=== PATIENT | female | born 1945 | race Caucasian/White ===

== ENCOUNTER 2016-12-14 17:48 | Inpatient (IN) | payer MEDICARE, BC ==
[2016-12-14] MEDS ORDERED: SODIUM CHLORIDE 0.9% 1,000 ML IV STA (19:33)
--- NOTE | 2016-12-14 19:36 | ED ---
GI Bleed HPI - General Chief complaint: GI Bleed Stated complaint: RECTAL BLEEDING X 2 DAYS Time Seen by Provider: 12/14/16 19:00 Source: patient, RN notes reviewed Mode of arrival: ambulatory Limitations: no limitations - History of Present Illness Initial comments: This is a 71-year-old female history of no prior history of any abdominal problems who states she had the onset last several days of blood in her stool. She states she had some 2 days ago some yesterday and then today she had burning colored stool in the toilet bowl. She has a little bit of left lower quadrant pain no fevers chills no nausea no vomiting no sweats she had colonoscopy done in 2009 which apparently was normal. There is a remote family history of someone with polyps in the colon. She has no other history that she knows of no diverticulosis diverticulitis no history of irritable bowel. She denies any lightheadedness dizziness or other symptoms at this time. She denies any vaginal bleeding dysuria. MD complaint: gross hematochezia - Related Data Home Medications Medication Instructions Recorded Confirmed Benazepril [Lotensin] 10 mg PO DAILY 07/19/16 12/14/16 Pravastatin Sodium [Pravachol] 20 mg PO DAILY 07/19/16 12/14/16 Aspirin 81 mg PO DAILY 12/14/16 12/14/16 Multivitamins, Thera [Multivitamin 1 tab PO DAILY 12/14/16 12/14/16 (formulary)] Allergies Allergy/AdvReac Type Severity Reaction Status Date / Time acetaminophen [From Lortab] Allergy Unknown Verified 12/14/16 18:54 hydrocodone [From Lortab] Allergy Unknown Verified 12/14/16 18:54 Sulfa (Sulfonamide Allergy Unknown Verified 12/14/16 18:54 Antibiotics) Review of Systems ROS Statement: Those systems with pertinent positive or pertinent negative responses have been documented in the HPI. ROS Other: All systems not noted in ROS Statement are negative. Past Medical History Past Medical History: Hyperlipidemia, Hypertension, Osteoarthritis (OA) Additional Past Medical History / Comment(s): states recently treated for UTI, states heart murmur History of Any Multi-Drug Resistant Organisms: None Reported Past Surgical History: Section, Cholecystectomy, Joint Replacement, Orthopedic Surgery Additional Past Surgical History / Comment(s): 07/25/16 total R hip arthroplasty anterior approach. Other surgical hx: Right (?) knee sx for chipped bone as 8 yr old child, colonoscopy Past Anesthesia/Blood Transfusion Reactions: No Reported Reaction Past Psychological History: No Psychological Hx Reported Smoking Status: Former smoker Past Alcohol Use History: None Reported Additional Past Alcohol Use History / Comment(s): quit smoking 30 yrs ago, started as teenager, smoked less than 1/2 ppd Past Drug Use History: None Reported - Past Family History Son(s) Family Medical History: Cancer Additional Family Medical History / Comment(s): leukemia Mother Family Medical History: No Reported History Additional Family Medical History / Comment(s): Mother was healthy and lived to be 92yrs old. Father Family Medical History: No Reported History Additional Family Medical History / Comment(s): Father lived to be 85 yrs old. General Exam - General Exam Comments Initial Comments: This is a well-developed well-nourished awake alert oriented x3 female Limitations: no limitations General appearance: alert, in no apparent distress Head exam: Present: atraumatic, normocephalic, normal inspection Eye exam: Present: normal appearance, PERRL, EOMI. Absent: scleral icterus, conjunctival injection, periorbital swelling ENT exam: Present: normal exam, mucous membranes moist Neck exam: Present: normal inspection. Absent: tenderness, meningismus, lymphadenopathy Respiratory exam: Present: normal lung sounds bilaterally. Absent: respiratory distress, wheezes, rales, rhonchi, stridor Cardiovascular Exam: Present: regular rate, normal rhythm, normal heart sounds. Absent: systolic murmur, diastolic murmur, rubs, gallop, clicks GI/Abdominal exam: Present: soft, tenderness (Some left lower quadrant tenderness palpation no guarding no rebound no masses no bruits), normal bowel sounds. Absent: distended, guarding, rebound, rigid Rectal exam: Present: heme (+) stool, other (Ready color stool no masses some small residual hemorrhoids no bleeding no inflammation.) Extremities exam: Present: normal inspection, full ROM, normal capillary refill. Absent: tenderness, pedal edema, joint swelling, calf tenderness Back exam: Present: normal inspection Neurological exam: Present: alert, oriented X3, CN II-XII intact Psychiatric exam: Present: normal affect, normal mood Skin exam: Present: warm, dry, intact, normal color. Absent: rash Course Vital Signs 12/14/16 12/14/16 12/14/16 18:21 18:36 19:42 Temperature 98.5 F Pulse Rate 101 H 97 92 Respiratory 18 18 16 Rate Blood Pressure 172/100 135/65 125/51 O2 Sat by Pulse 96 98 96 Oximetry 12/14/16 12/14/16 21:24 23:40 Temperature Pulse Rate 84 90 Respiratory 18 18 Rate Blood Pressure 124/55 126/66 O2 Sat by Pulse 98 98 Oximetry Medical Decision Making - Medical Decision Making I did discuss findings with the patient family and with Dr. Borrero patient be admitted for further inpatient workup. - Lab Data Result diagrams: 12/14/16 18:50 12/14/16 18:50 Lab Results 12/14/16 12/14/16 12/14/16 Range/Units 18:50 18:50 18:50 WBC 11.5 H (3.8-10.6) k/uL RBC 4.51 (3.80-5.40) m/uL Hgb 13.2 (11.4-16.0) gm/dL Hct 41.1 (34.0-46.0) % MCV 91.0 (80.0-100.0) fL MCH 29.2 (25.0-35.0) pg MCHC 32.0 (31.0-37.0) g/dL RDW 13.7 (11.5-15.5) % Plt Count 260 (150-450) k/uL Neutrophils % 69 % Lymphocytes % 22 % Monocytes % 5 % Eosinophils % 1 % Basophils % 1 % Neutrophils # 7.9 H (1.3-7.7) k/uL Lymphocytes # 2.5 (1.0-4.8) k/uL Monocytes # 0.6 (0-1.0) k/uL Eosinophils # 0.1 (0-0.7) k/uL Basophils # 0.1 (0-0.2) k/uL PT (9.0-12.0) sec INR (<1.1) APTT (22.0-30.0) sec Sodium (137-145) mmol/L Potassium (3.5-5.1) mmol/L Chloride (98-107) mmol/L Carbon Dioxide (22-30) mmol/L Anion Gap mmol/L BUN (7-17) mg/dL Creatinine (0.52-1.04) mg/dL Est GFR (MDRD) Af Amer (>60 ml/min/1.73 sqM) Est GFR (MDRD) Non-Af (>60 ml/min/1.73 sqM) Glucose (74-99) mg/dL Calcium (8.4-10.2) mg/dL Magnesium (1.6-2.3) mg/dL Total Bilirubin (0.2-1.3) mg/dL AST (14-36) U/L ALT (9-52) U/L Alkaline Phosphatase (38-126) U/L Total Creatine Kinase 93 (30-135) U/L CK-MB (CK-2) 1.1 (0.0-2.4) ng/mL CK-MB (CK-2) Rel Index 1.2 Troponin I <0.012 (0.000-0.034) ng/mL Total Protein (6.3-8.2) g/dL Albumin (3.5-5.0) g/dL Lipase (23-300) U/L Stool Occult Blood (Negative) Blood Type A Positive Blood Type Recheck No Antibody Screen NEGATIVE Spec Expiration Date 12/17/2016 - 234912/14/16 12/14/16 12/14/16 Range/Units 18:50 18:50 18:50 WBC (3.8-10.6) k/uL RBC (3.80-5.40) m/uL Hgb (11.4-16.0) gm/dL Hct (34.0-46.0) % MCV (80.0-100.0) fL MCH (25.0-35.0) pg MCHC (31.0-37.0) g/dL RDW (11.5-15.5) % Plt Count (150-450) k/uL Neutrophils % % Lymphocytes % % Monocytes % % Eosinophils % % Basophils % % Neutrophils # (1.3-7.7) k/uL Lymphocytes # (1.0-4.8) k/uL Monocytes # (0-1.0) k/uL Eosinophils # (0-0.7) k/uL Basophils # (0-0.2) k/uL PT 10.1 (9.0-12.0) sec INR 1.0 (<1.1) APTT 21.6 L (22.0-30.0) sec Sodium 140 (137-145) mmol/L Potassium 4.6 (3.5-5.1) mmol/L Chloride 106 (98-107) mmol/L Carbon Dioxide 23 (22-30) mmol/L Anion Gap 11 mmol/L BUN 20 H (7-17) mg/dL Creatinine 0.80 (0.52-1.04) mg/dL Est GFR (MDRD) Af Amer >60 (>60 ml/min/1.73 sqM) Est GFR (MDRD) Non-Af >60 (>60 ml/min/1.73 sqM) Glucose 107 H (74-99) mg/dL Calcium 9.9 (8.4-10.2) mg/dL Magnesium 2.1 (1.6-2.3) mg/dL Total Bilirubin 0.4 (0.2-1.3) mg/dL AST 25 (14-36) U/L ALT 29 (9-52) U/L Alkaline Phosphatase 58 (38-126) U/L Total Creatine Kinase (30-135) U/L CK-MB (CK-2) (0.0-2.4) ng/mL CK-MB (CK-2) Rel Index Troponin I (0.000-0.034) ng/mL Total Protein 6.8 (6.3-8.2) g/dL Albumin 3.9 (3.5-5.0) g/dL Lipase 158 (23-300) U/L Stool Occult Blood Positive H (Negative) Blood Type Blood Type Recheck Antibody Screen Spec Expiration Date - EKG Data -: EKG Interpreted by Al EKG shows normal: sinus rhythm (Sinus rhythm rate of 93. Arrival 136 QRS duration 66 QT/QTC of 334/4:15 minimal voltage criteria for LVH no acute ST-T wave changes.) - Radiology Data Radiology results: report reviewed (I did review the imaging and reports no acute findings.), image reviewed Disposition Clinical Impression: Hematochezia, Lower GI bleed Disposition: [facility] Condition: Stable
[2016-12-14 19:49] LABS: Basophils # (A) 0.1 k/uL (0-0.2); Basophils % (A) 1 %; CH 29.8; CHCM 32.8; Eosinophils # (A) 0.1 k/uL (0-0.7); Eosinophils % (A) 1 %; HCT 41.1 % (34.0-46.0); HDW 2.32; HGB 13.2 gm/dL (11.4-16.0); Luc % (Auto) 2; Lymphocytes # (A) 2.5 k/uL (1.0-4.8); Lymphocytes % (A) 22 %; MCH 29.2 pg (25.0-35.0); Mean Platelet Volume 8.6; Monocytes # (A) 0.6 k/uL (0-1.0); Monocytes % (A) 5 %; Neutrophils # (A) 7.9 k/uL (1.3-7.7); Neutrophils % (A) 69 %; RBC 4.51 m/uL (3.80-5.40); RDW 13.7 % (11.5-15.5); WBC 11.5 k/uL (3.8-10.6); WBC (Perox) 12.15
[2016-12-14 20:04] LABS: ALT 29 U/L (9-52); AST 25 U/L (14-36); Alkaline Phosphatase 58 U/L (38-126); Anion Gap 11 mmol/L; Blood Urea Nitrogen 20 mg/dL (7-17); Calcium 9.9 mg/dL (8.4-10.2); Carbon Dioxide 23 mmol/L (22-30); Chloride 106 mmol/L (98-107); Glucose 107 mg/dL (74-99); Magnesium 2.1 mg/dL (1.6-2.3); Non-African American GFR(MDRD) >60 (>60 ml/min/1.73 sqM); Potassium 4.6 mmol/L (3.5-5.1); Sodium 140 mmol/L (137-145); Total Bilirubin 0.4 mg/dL (0.2-1.3); Total Protein 6.8 g/dL (6.3-8.2)
[2016-12-14 20:11] LABS: Creatine Kinase 93 U/L (30-135); Prothrombin Time 10.1 sec (9.0-12.0)
[2016-12-14 20:23] LABS: Partial Thromboplastin Time 21.6 sec (22.0-30.0)
[2016-12-14 20:24] LABS: Creatine Kinase MB 1.1 ng/mL (0.0-2.4); Troponin I <0.012 ng/mL (0.000-0.034)
--- NOTE | 2016-12-14 21:06 | XR ---
EXAMINATION TYPE: XR abdomen 1V DATE OF EXAM: 12/14/2016 8:49 PM COMPARISON: NONE HISTORY: Cough TECHNIQUE: 2 views FINDINGS: There is no sign of intestinal obstruction or pneumoperitoneum. Fecal pattern is normal. Th ere are clips from cholecystectomy. There is right hip prosthesis. There are no calcifications over t he kidneys. IMPRESSION: Nonacute abdomen.
--- NOTE | 2016-12-14 21:08 | XR ---
EXAMINATION TYPE: XR chest 2V DATE OF EXAM: 12/14/2016 8:49 PM COMPARISON: 07/26/2016 HISTORY: Cough TECHNIQUE: Frontal and lateral views of the chest are obtained. FINDINGS: There is no heart failure nor confluent pneumonic infiltrate. There are no hilar masses. C ostophrenic angles are clear. There are chest leads. Bony thorax is intact. IMPRESSION: No active cardiopulmonary disease. No change.
[2016-12-14] MEDS ORDERED: ONDANSETRON 4 MG/2 ML VIAL IVP PRN (23:45)
[2016-12-14] MEDS ORDERED: NALOXONE 0.4 MG/ML 1 ML VIAL IV PRN (23:45)
[2016-12-14] MEDS ORDERED: RX INFO: IV CONTRAST WAS GIVEN 1 EACH MISC MISCELLANE PRN (23:49)
[2016-12-14] MEDS ORDERED: IOHEXOL 350 MG/ML 25 ML BOTTLE (ORAL USE) PO PRN (23:49)
--- NOTE | 2016-12-15 02:36 | CT ---
EXAM: CT Abdomen and Pelvis With Intravenous Contrast. CLINICAL HISTORY: Pain, rectal bleeding. History of cholecystectomy and section 3. TECHNIQUE: Axial computed tomography images of the abdomen and pelvis with intravenous contrast. CTDI is 19.60, 22.40 mGy and DLP is 1469.70 mGy-cm This CT exam was performed using one or more of the following dose reduction techniques: automated exposure control, adjustment of the mA and/or kV according to patient size, and/or use of iterative reconstruction technique. COMPARISON: No relevant prior studies available. FINDINGS: Artifacts: Right hip prosthesis. Lower thorax: No acute findings. ABDOMEN: Liver: The liver is upper limits of normal in size. No focal hepatic lesions. Gallbladder and bile ducts: Gallbladder is absent. Mild nonspecific biliary dilatation may be postsurgical. The common bile duct measures up to 14 mm. Pancreas: Unremarkable. Spleen: Unremarkable. Adrenals: Unremarkable. Kidneys and ureters: Unremarkable. No solid mass. No hydronephrosis. Stomach and bowel: Unremarkable. Bowel is nondilated. Appendix: No findings to suggest acute appendicitis. PELVIS: Bladder: Mild thickening of the underdistended urinary bladder. Reproductive: Unremarkable as visualized. ABDOMEN and PELVIS: Intraperitoneal space: Unremarkable. No free air. No significant fluid collection. Bones/joints: Status post right hip arthroplasty. No acute osseous abnormality. Degenerative changes of the spine. Soft tissues: Small fat-containing periumbilical hernia. Vasculature: Unremarkable. No abdominal aortic aneurysm. Lymph nodes: Unremarkable. No enlarged lymph nodes. IMPRESSION: No acute findings.
[2016-12-15] MEDS: 0.9% NACL WITH KCL 20 MEQ/L 1,000 ML IV SCH ×3 (03:16→17:35)
[2016-12-15 06:12] LABS: CH 29.8; CHCM 33.6; HDW 2.44; HGB 11.6 gm/dL (11.4-16.0); MCH 30.3 pg (25.0-35.0); MCV 89.1 fL (80.0-100.0); RBC 3.81 m/uL (3.80-5.40); RDW 13.3 % (11.5-15.5); WBC 11.2 k/uL (3.8-10.6)
[2016-12-15] MEDS: PANTOPRAZOLE 40 MG/10 ML VIAL IV SCH ×2 (09:08→21:04)
[2016-12-15] MEDS: LISINOPRIL 10 MG TAB PO SCH (11:28)
[2016-12-15] MEDS: PRAVASTATIN SODIUM 20 MG TAB PO SCH (11:28)
[2016-12-15] MEDS ORDERED: HYDROmorphone 1 MG/ML 1 ML SYRINGE IV PRN (12:30)
--- NOTE | 2016-12-15 13:02 | HP ---
DATE OF ADMISSION: 12/14/2016 PRESENTING COMPLAINT: Lower GI bleed. HISTORY OF PRESENTING COMPLAINT: This is a very pleasant 71-year-old patient of Dr. King. Chronic stable medical conditions include hypertension, hyperlipidemia, obesity, osteoarthritis. Patient 3 days ago started having blood in the stool. Also started noticing clots. No abdominal pain, nausea, vomiting but did feel dizzy, lightheaded. No chest pain. Admitted for the same. Patient does take a baby aspirin. No prior history of the same. REVIEW OF SYSTEMS: CONSTITUTIONAL: Tired. HEENT: None. RESPIRATORY: None. CARDIOVASCULAR: None. GASTROINTESTINAL: As above. GENITOURINARY: None. MUSCULOSKELETAL: Pain in the joints. DERMATOLOGIC: None. HEMATOLOGIC: None. LYMPHATIC: None. PSYCHIATRY: None. NEUROLOGICAL: None. Past medical history of hypertension, hyperlipidemia, obesity, osteoarthritis. PAST SURGICAL HISTORY: , cholecystectomy, hernia repair, joint repair, right total hip arthroplasty. SOCIAL HISTORY: Patient stopped smoking 30 years ago, only smoked as a teenager, very briefly. No alcohol. Lives by herself. Family history of leukemia. HOME MEDICATIONS: 1. Multivitamin 1 tablet p.o. daily. 2. Benazepril 10 mg p.o. daily. 3. Aspirin 81 mg daily. 4. Pravachol 20 mg p.o. daily. On examination, temperature 98.5, pulse 101, respirations 18, blood pressure 172/100, pulse ox 96% on room air. Repeat blood pressure 135/65. GENERAL APPEARANCE: Well built, BMI of 39.3. Sitting up, not in distress. EYES: Pupils equal. Conjunctivae normal. HEENT: Oral cavity normal. NECK: JVD not raised. Mass not palpable. Respiratory effort normal. Lungs are clear. CARDIOVASCULAR: First and second sounds normal. No edema. ABDOMEN: Soft, nontender. Liver and spleen not palpable. LYMPHATIC: No lymph node palpable in neck or axillae. PSYCHIATRY: Alert and oriented x3. Mood and affect normal. NEUROLOGICAL: Pupils equal. Cranial nerves grossly intact. Power and sensation grossly intact. INVESTIGATIONS: White count 11.5, hemoglobin 13.2. Potassium 4.6, BUN 20, creatinine 0.80. C. diff negative. CT scan of the abdomen and pelvis unremarkable. ASSESSMENT: 1. Acute painless lower gastrointestinal bleed in patient putting out blood clots, strongly suspect this to be a diverticular bleed. Of course patient is on aspirin, need to consider upper gastrointestinal bleed, too. Patient has no epigastric tenderness. 2. Essential hypertension. 3. Hyperlipidemia. 4. Obesity; body mass index of 39.3. 5. Primary osteoarthritis in multiple joints. PLAN: Consultation was made from the ER. H&H will be followed. Patient's aspirin has been held. Patient was put on IV TPN, IV fluids. Care was discussed with the patient and a niece and a [id number] at the bedside. Questions were answered.
--- NOTE | 2016-12-15 15:50 | P.GSCN ---
<Micheline Henao - Last Filed: 12/15/16 15:38> History of Present Illness Consult date: 12/15/16 Reason for Consult: New onset melena History of present illness: 71-year-old female being seen at the request of the attending for a surgical eval. Patient was admitted to the emergency room with acute onset over the last several days noting to have blood in her stool. Patient states there was bright red blood in the toilet bowl and the stools or maroon in color Stated that over the last several days she noted that she did have burning when she had a bowel movement with blood in the toilet bowl. Patient stated she had left lower quadrant pain. Patient denied any fever chills. Patient gives no history of being told that she's been treated in the past for diverticulosis.. Patient stated approximately 7 years ago she had a colonoscopy done. Patient stated there were no acute findings. Patient is a history of remote family member having polyps in the colon. Patient states that she has had no significant past surgical history except repair and 3 C-sections. In the emergency room the patient did undergo CAT scan of the abdomen and pelvis with IV contrast which showed no findings to suggest acute appendicitis is an unremarkable study hemoglobin on admission was 13.2 a repeat hemoglobin was 11.6. Patient states since being admitted has had 3 loose stools maroon in color currently is denying abdominal pain no nausea no vomiting Review of Systems Essentially unremarkable except as mentioned in the present illness Past Medical History Past Medical History: Hyperlipidemia, Hypertension, Osteoarthritis (OA) Additional Past Medical History / Comment(s): states recently treated for UTI, states heart murmur History of Any Multi-Drug Resistant Organisms: None Reported Past Surgical History: Section, Cholecystectomy, Hernia Repair, Joint Replacement, Orthopedic Surgery Additional Past Surgical History / Comment(s): 07/25/16 total R hip arthroplasty anterior approach. Other surgical hx: Right (?) knee sx for chipped bone as 8 yr old child, colonoscopy Past Anesthesia/Blood Transfusion Reactions: No Reported Reaction Past Psychological History: No Psychological Hx Reported Smoking Status: Former smoker Past Alcohol Use History: None Reported Additional Past Alcohol Use History / Comment(s): quit smoking 30 yrs ago, started as teenager, smoked less than 1/2 ppd Past Drug Use History: None Reported - Past Family History Son(s) Family Medical History: Cancer Additional Family Medical History / Comment(s): leukemia Mother Family Medical History: No Reported History Additional Family Medical History / Comment(s): Mother was healthy and lived to be 92yrs old. Father Family Medical History: No Reported History Additional Family Medical History / Comment(s): Father lived to be 85 yrs old. Medications and Allergies Home Medications Medication Instructions Recorded Confirmed Type Benazepril [Lotensin] 10 mg PO DAILY 07/19/16 12/14/16 History Pravastatin Sodium [Pravachol] 20 mg PO DAILY 07/19/16 12/14/16 History Aspirin 81 mg PO DAILY 12/14/16 12/14/16 History Multivitamins, Thera [Multivitamin 1 tab PO DAILY 12/14/16 12/14/16 History (formulary)] Allergies Allergy/AdvReac Type Severity Reaction Status Date / Time acetaminophen [From Lortab] Allergy Unknown Verified 12/14/16 18:54 hydrocodone [From Lortab] Allergy Unknown Verified 12/14/16 18:54 Sulfa (Sulfonamide Allergy Unknown Verified 12/14/16 18:54 Antibiotics) Surgical - Exam Vital Signs Temp Pulse Resp BP Pulse Ox 98.5 F 101 H 18 172/100 96 12/14/16 18:21 12/14/16 18:21 12/14/16 18:21 12/14/16 18:21 12/14/16 18:21 GENERAL APPEARANCE: 71-year-old female patient is alert, oriented, in no acute distress. Sitting up in a chair VITAL SIGNS: Reviewed HEENT: Head is normocephalic and atraumatic. Pupils are equal and reactive. The nares are patent. Oropharynx is clear without lesions. NECK: Supple without lymphadenopathy. Traches midline. HEART: S1, S2. Regular rate and rhythm. LUNGS: No crackles or wheezes are heard. ABDOMEN: Soft, slight tenderness, nondistended with good bowel sounds. No peritoneal signs. No palpable organomegaly or masses. Reportedly has had 3 maroon stools painless no reports of nausea vomiting reports having tenderness to the left lower quadrant EXTREMITIES: Normal skin color and turgor. No cyanosis, rash, ulceration, clubbing or edema. Radial pedal pulses are 2/4 bilaterally. NEUROLOGICAL: No focal deficits. Strength and sensation are grossly intact. Results - Labs 12/15/16 05:22 12/14/16 18:50 Abnormal Lab Results - Last 24 Hours (Table) 12/15/16 Range/Units 05:22 WBC 11.2 H (3.8-10.6) k/uL Assessment and Plan Plan: Impression Present on admission rectal bleeding suspect due to a GI bleed positive stool for occult blood Colonoscopy in 2009 with apparently no acute findings Present on admission hematochezia likely due to lower GI bleed Computed tomography scan IV contrast abdomen and pelvis no acute findings Obesity BMI 39 Plan No surgical intervention indicated at this time will defer to GI service patient may benefit from a colonoscopy Repeat labs in the morning DVT and GI prophylaxis IV fluid for hydration Will reevaluate in the morning with further recommendations as clinical course indicates Thank you for allowing us to participate in the surgical care of your patient will follow closely with further recommendations The above dictated assessment and findings were discussed with dr fernandez Impression and the plan of care have been dictated as directed. Micheline Henao nurse practitioner acting as a scribe for dr fernandez <Katty Adkins - Last Filed: 12/16/16 10:39> Surgical - Exam Vital Signs Temp Pulse Resp BP Pulse Ox 98.5 F 101 H 18 172/100 96 12/14/16 18:21 12/14/16 18:21 12/14/16 18:21 12/14/16 18:21 12/14/16 18:21 Results - Labs 12/16/16 08:42 12/14/16 18:50 Abnormal Lab Results - Last 24 Hours (Table) 12/15/16 12/16/16 Range/Units 17:53 08:42 RBC 3.55 L 3.73 L (3.80-5.40) m/uL Hgb 10.5 L (11.4-16.0) gm/dL Hct 32.4 L 33.6 L (34.0-46.0) % Assessment and Plan Plan: Patient examined. GI bleeding. Consult GI for therapeutic colonoscopy. No indication for surgical intervention at this time. Check CBC in pm and tomorrow am.Thank you for the consult.
[2016-12-15 18:36] LABS: Basophils # (A) 0.1 k/uL (0-0.2); Basophils % (A) 1 %; CH 29.6; CHCM 32.6; Eosinophils # (A) 0.1 k/uL (0-0.7); Eosinophils % (A) 2 %; HCT 32.4 % (34.0-46.0); HDW 2.28; HGB 10.5 gm/dL (11.4-16.0); Luc % (Auto) 3; Lymphocytes # (A) 2.6 k/uL (1.0-4.8); Lymphocytes % (A) 32 %; MCH 29.6 pg (25.0-35.0); MCHC 32.4 g/dL (31.0-37.0); MCV 91.2 fL (80.0-100.0); Mean Platelet Volume 8.6; Monocytes # (A) 0.5 k/uL (0-1.0); Monocytes % (A) 6 %; Neutrophils # (A) 4.5 k/uL (1.3-7.7); Neutrophils % (A) 56 %; RBC 3.55 m/uL (3.80-5.40); RDW 13.5 % (11.5-15.5); WBC 8.1 k/uL (3.8-10.6); WBC (Perox) 8.77
[2016-12-16] MEDS: 0.9% NACL WITH KCL 20 MEQ/L 1,000 ML IV SCH ×3 (01:04→17:06)
--- NOTE | 2016-12-16 08:59 | P.CONS ---
History of Present Illness - Reason for Consult Consult date: 12/16/16 Rectal bleeding Requesting physician: Sharad Borrero - History of Present Illness 71-year-old female patient Dr. King with a past medical history hyperlipidemia hypertension osteoarthritis. Patient presents with painless rectal bleeding that started Monday but accelerated Monday afternoon. She was resting multiple bowel movements burgundy colored with clots. Last night the bleeding seems to have tapered off and subsided. She had a bowel movement this morning that was more brown in nature. No history of GI bleeding. Denies hematemesis or melena. No history of peptic ulcer disease, weight loss, or fever. Last colonoscopy record was performed in 2009 at [facility] by Dr. Montgomery; findings reported as normal with no evidence of diverticular disease or polypectomy. Admission hemoglobin 13.2 currently 10.5. White count 8.1. Platelet 200. INR 1.0. BUN 20 creatinine 0.8. C. diff negative. TT abdomen and pelvis no acute findings. Review of Systems Constitutional: Denies fever, chills, sweats, weight gain, or loss. HEENT: Negative for migraines, blurred vision or loss, earaches, drainage, tinnitus, oral mucosal lesions, dysphagia, or odynophagia. CARDIAC: Hypertension. Hyperlipidemia. Negative for chest pain, arrhythmias, or palpitation. RESPIRATORY: Negative for shortness of breath, hemoptysis, cough, or sputum production. GI: See HPI for pertinent findings. : Negative for hematuria, urgency, frequency, polyuria, or dysuria. GYNc: Negative vaginal discharge. MUSCULOSKELETAL: Osteoarthritis. Negative for muscle aches, swelling, arthritis , and arthralgias. NEUROLOGIC: Negative for stroke or TIA. ENDOCRINE: Negative for thyroid problems. SKIN: Negative for rash or itching. PSYCHIATRIC: Negative history for depression and anxiety All systems: negative (See HPI) Past Medical History Past Medical History: Hyperlipidemia, Hypertension, Osteoarthritis (OA) Additional Past Medical History / Comment(s): states recently treated for UTI, states heart murmur History of Any Multi-Drug Resistant Organisms: None Reported Past Surgical History: Section, Cholecystectomy, Hernia Repair, Joint Replacement, Orthopedic Surgery Additional Past Surgical History / Comment(s): 07/25/16 total R hip arthroplasty anterior approach. Other surgical hx: Right (?) knee sx for chipped bone as 8 yr old child, colonoscopy Past Anesthesia/Blood Transfusion Reactions: No Reported Reaction Past Psychological History: No Psychological Hx Reported Smoking Status: Former smoker Past Alcohol Use History: None Reported Additional Past Alcohol Use History / Comment(s): quit smoking 30 yrs ago, started as teenager, smoked less than 1/2 ppd Past Drug Use History: None Reported - Past Family History Son(s) Family Medical History: Cancer Additional Family Medical History / Comment(s): leukemia Mother Family Medical History: No Reported History Additional Family Medical History / Comment(s): Mother was healthy and lived to be 92yrs old. Father Family Medical History: No Reported History Additional Family Medical History / Comment(s): Father lived to be 85 yrs old. Medications and Allergies Home Medications Medication Instructions Recorded Confirmed Type Benazepril [Lotensin] 10 mg PO DAILY 07/19/16 12/14/16 History Pravastatin Sodium [Pravachol] 20 mg PO DAILY 07/19/16 12/14/16 History Aspirin 81 mg PO DAILY 12/14/16 12/14/16 History Multivitamins, Thera [Multivitamin 1 tab PO DAILY 12/14/16 12/14/16 History (formulary)] Allergies Allergy/AdvReac Type Severity Reaction Status Date / Time acetaminophen [From Lortab] Allergy Unknown Verified 12/14/16 18:54 hydrocodone [From Lortab] Allergy Unknown Verified 12/14/16 18:54 Sulfa (Sulfonamide Allergy Unknown Verified 12/14/16 18:54 Antibiotics) Physical Exam Vitals: Vital Signs Temp Pulse Resp BP Pulse Ox 12/16/16 07:00 97.5 F L 83 19 123/75 95 12/15/16 22:33 97.6 F 74 14 119/55 96 12/15/16 22:24 97.6 F 74 14 119/58 96 12/15/16 15:00 98.3 F 70 19 107/59 95 Intake and Output 12/15/16 12/16/16 12/16/16 22:59 06:59 14:59 Output Total 1 Balance -1 Output: Stool 1 Other: Voiding Method Toilet Toilet # Voids 3 0 # Bowel Movements 1 General appearance: The patient is alert, oriented, in no acute distress. HET: Head is normocephalic and atraumatic. Pupils are equal and reactive. Oropharynx is clear without lesions. Neck: Supple without lymphadenopathy. Trachea midline. Heart: S1 S2. Regular rate and rhythm. Lungs: No crackles or wheezes are heard. Abdomen: Soft, nontender, nondistended with bowel sounds. No peritoneal signs. No palpable organomegaly or masses. Extremities: Normal skin color and turgor. No cyanosis, rash, ulceration, clubbing, or edema. Radial and pedal pulses are 2/4 bilaterally. Neurological: No focal deficits. Strength and sensation are grossly intact. Results CBC & Chem 7: 12/15/16 17:53 12/14/16 18:50 Labs: Abnormal Lab Results - Last 24 Hours (Table) 12/15/16 Range/Units 17:53 RBC 3.55 L (3.80-5.40) m/uL Hgb 10.5 L (11.4-16.0) gm/dL Hct 32.4 L (34.0-46.0) % CT scan - abdomen: report reviewed (Reviewed by Dr. Figueroa) Assessment and Plan (1) Rectal bleeding Narrative/Plan: Suspect segmental ischemic colitis however other pathology such as self- limiting infectious, inflammatory colitis, malignancy, angiectasia, cannot be entirely excluded. Diverticular bleeding possible but felt to be less likely considering her last exam several years ago reported no evidence of diverticular disease. Status: Acute (2) Acute blood loss anemia Status: Acute Plan: 1. Presently patient is resting comfortably requesting diet advancement and and is inquiring about discharge. She was advised to undergo repeat colonoscopy this can be performed as early as tomorrow morning or be scheduled as an outpatient within the next week. She would like to discuss her options with family and give her response later today. For now continue clear liquid diet until she makes decision; inpatient versus outpatient colonoscopy will be performed. Continue to follow CBC closely. We'll follow with you. Thank you for this kind referral and the opportunity to participate in the care of your patient. This consultation was discussed with Dr. Figueroa. The impression and plan of care have been directed as dictated.
[2016-12-16 09:06] LABS: Basophils % (A) 1 %; CH 29.6; Eosinophils # (A) 0.2 k/uL (0-0.7); Eosinophils % (A) 3 %; HCT 33.6 % (34.0-46.0); HDW 2.43; HGB 11.4 gm/dL (11.4-16.0); Luc # (Auto) 0.15; Luc % (Auto) 2; Lymphocytes # (A) 2.3 k/uL (1.0-4.8); Lymphocytes % (A) 33 %; MCH 30.7 pg (25.0-35.0); MCV 90.1 fL (80.0-100.0); Mean Platelet Volume 8.2; Monocytes # (A) 0.4 k/uL (0-1.0); Monocytes % (A) 6 %; Neutrophils # (A) 3.8 k/uL (1.3-7.7); Neutrophils % (A) 55 %; RBC 3.73 m/uL (3.80-5.40); RDW 13.5 % (11.5-15.5); WBC 6.9 k/uL (3.8-10.6); WBC (Perox) 7.44
[2016-12-16] MEDS: PANTOPRAZOLE 40 MG/10 ML VIAL IV SCH ×2 (09:36→20:24)
[2016-12-16] MEDS: PRAVASTATIN SODIUM 20 MG TAB PO SCH (09:36)
[2016-12-16] MEDS: LISINOPRIL 10 MG TAB PO SCH (09:36)
--- NOTE | 2016-12-16 12:02 | P.PN ---
Subjective 71-year-old female being seen by surgical Service Currently patient is sitting up in a chair. Patient's been seen by GI service. They are setting the patient up for colonoscopy which will be scheduled tomorrow after the bowel prep has been initiated. Patient continues to report that she has had multiple bowel movements that are burgundy in color and there have been clots noted. She stated that they're less frequent but they continue to persist. Patient stated one bowel movement this morning was more brown in nature. Hemoglobin stable at 13.2 C. diff is negative Objective - Vital Signs Vital signs: Vital Signs Temp 97.5 F L 12/16/16 07:00 Pulse 83 12/16/16 07:00 Resp 19 12/16/16 07:00 BP 123/75 12/16/16 07:00 Pulse Ox 95 12/16/16 07:00 Intake & Output 12/15/16 12/16/16 12/16/16 18:59 06:59 18:59 Output Total 1 Balance -1 Output: Stool 1 Other: Voiding Method Toilet Toilet Toilet # Voids 3 0 # Bowel Movements 1 1 - Exam Physical exam 70-year-old female sitting up in a chair appears in no acute distress Lungs essentially clear adequate air movement on room air Heart S1-S2 audible and regular denying chest pain Abdomen soft nontender states had one brownish color stool this morning but had several bowel movements yesterday Burgamy in color with clots Extremities no edema - Labs CBC & Chem 7: 12/16/16 08:42 12/14/16 18:50 Labs: Abnormal Lab Results - Last 24 Hours (Table) 12/15/16 12/16/16 Range/Units 17:53 08:42 RBC 3.55 L 3.73 L (3.80-5.40) m/uL Hgb 10.5 L (11.4-16.0) gm/dL Hct 32.4 L 33.6 L (34.0-46.0) % Assessment and Plan Plan: Impression Present on admission rectal bleeding suspect due to a GI bleed positive stool for occult blood Colonoscopy in 2009 with apparently no acute findings Present on admission hematochezia likely due to lower GI bleed Computed tomography scan IV contrast abdomen and pelvis no acute findings Obesity BMI 39 Present on admission acute blood loss anemia suspect GI bleed Rectal bleeding suspect segmental ischemic colitis diverticular bleeding possible but felt to be less likely considering last exam colonoscopy showed no evidence of diverticular disease colonoscopy done in 2010 Plan No surgical intervention indicated at this time will defer to GI service Repeat labs in the morning DVT and GI prophylaxis IV fluid for hydration GI service scheduling patient for colonoscopy tomorrow We'll sign off with no further surgical recommendations at this time reconsult as needed The above dictated assessment and findings were discussed with dr fernandez Impression and the plan of care have been dictated as directed. Micheline Henao nurse practitioner acting as a scribe for dr fernandez
[2016-12-16] MEDS ORDERED: PEG 3350-NA SULF,BICARB,CL/KCL 4,000 ML BOTTLE PO ONE (16:00)
[2016-12-17 00:25] VITALS: PULSE 71; RESP 16
[2016-12-17] MEDS: 0.9% NACL WITH KCL 20 MEQ/L 1,000 ML IV SCH ×2 (02:14→09:23)
[2016-12-17 07:49] VITALS: BP 125/58; TEMP 96
[2016-12-17] MEDS ORDERED: IV FLUID CONTINUATION 1,000 ML IV ONE (08:05)
[2016-12-17] MEDS ORDERED: PROPOFOL 10 MG/ML 20 ML VIAL IV ONE (08:19)
[2016-12-17] MEDS ORDERED: SODIUM CHLORIDE 0.9% 1,000 ML IV ONE (08:37)
--- NOTE | 2016-12-17 08:58 | P.PCN ---
Date of Procedure: 12/17/16 Procedure(s) Performed: Procedure: Total colonoscopy. Preoperative diagnosis: Rectal bleeding. Postoperative diagnosis: 1. Mild sigmoid diverticulosis with no evidence of acute diverticulitis, strictures or bleeding. 2. Low-grade internal hemorrhoids without bleeding at the time of this exam. 3. No mucosal abnormalities, angiodysplasias, neoplasia or other potential sources of bleeding seen. Preparation: GoLYTELY prep. Sedation: Was provided by anesthesia. Brief clinical history: The patient is a 71-year-old female who presented with painless rectal bleeding that started two days prior to admission but accelerated the afternoon of the day of admission 12/14/2016. She was having multiple bowel movements, burgundy in color with clots. The bleeding seems to have tapered off and subsided after admission. She had a bowel movement yesterday which was more brown in nature. No history of GI bleeding in the past. Denies hematemesis or melena. No history of peptic ulcer disease, weight loss, or fever. Last colonoscopy record was performed in 2009 at [facility] by Dr. Montgomery; findings reported as normal with no evidence of diverticular disease or polypectomy. Admission hemoglobin 13.2, lowest was 10.5, yesterday 11.4. White count 8.1. Platelet 200. INR 1.0. BUN 20 creatinine 0.8. C. diff negative. The details are summarized in the history and physical and dictated consultations and progress Notes. This evaluation is to assess for a source of bleeding. Procedure: With the patient on her left lateral decubitus position and after informed consent and adequate sedation, the perianal area was inspected and it did not show any fissures or fistulas. There were no masses felt on digital rectal examination. The Olympus CFQ 160L video colonoscope was then inserted in the rectum in the usual fashion and advanced to the cecum. The mucosa appeared healthy. No polyps or tumors were seen or any angiodysplasia or other potential sources of bleeding. There was no active bleeding. Or fecal water was yellowish in color. There were a few diverticular orifices seen scattered in the distal sigmoid with no evidence of acute diverticulitis, strictures or bleeding. I retroflexed endoscope in the rectum before the endoscope was withdrawn. Low-grade internal hemorrhoids were noted but there was no bleeding. The patient tolerated the procedure well. Plan: The patient was reassured and I discussed these findings with her daughter as well. It is likely that her bleeding was secondary to her diverticular disease, less likely to hemorrhoids. Since it has subsided spontaneously and her hemoglobin is now stable, I did not recommend any additional workup at this time. Will advance her diet. Further plans based on her course.
[2016-12-17] MEDS: LISINOPRIL 10 MG TAB PO SCH (09:23)
[2016-12-17] MEDS: PRAVASTATIN SODIUM 20 MG TAB PO SCH (09:23)
[2016-12-17] MEDS: PANTOPRAZOLE 40 MG/10 ML VIAL IV SCH (09:23)
--- NOTE | 2016-12-17 10:52 | PN ---
DATE OF SERVICE: 12/16/2016 PRESENTING COMPLAINT: Lower GI bleed. INTERVAL HISTORY: This patient presented with lower gastrointestinal bleed including blood clots. No episodes earlier today when I saw the patient. The patient is scheduled for colonoscopy tomorrow. No abdominal pain. No nausea or vomiting. REVIEW OF SYSTEMS: Done for constitutional, cardiovascular, GI, pulmonary; relevant findings as above. Current medications are reviewed and include IV Protonix. On examination, temperature 98.2, pulse 82, respirations 17, blood pressure 132/62, pulse ox 97% on room air. GENERAL APPEARANCE: Sitting up, comfortable. EYES: Pupils equal. Conjunctivae normal. NECK: JVD not raised. No mass palpable. RESPIRATORY: Effort normal. LUNGS: Clear CARDIOVASCULAR: First and second sounds normal. No edema. ABDOMEN: Soft, nontender. Liver and spleen not palpable. PSYCHIATRY: Alert and oriented x3. Mood and affect normal. INVESTIGATIONS: White count 6.9, hemoglobin 11.4. ASSESSMENT: 1. Acute lower gastrointestinal bleed in a patient putting out blood clots, strongly suspect this to be diverticular bleed. Patient due for endoscopy tomorrow. 2. Essential hypertension. 3. Hyperlipidemia. 4. Obesity, body mass index of 39.3. 5. Primary osteoarthritis of multiple joints. PLAN: Hemodynamically stable. Awaiting endoscopy tomorrow. Care was discussed with the patient.
[2016-12-18] MEDS ORDERED: PANTOPRAZOLE 40 MG TABLET PO SCH (09:00)
--- NOTE | 2016-12-18 13:52 | DS ---
DATE OF ADMISSION: 12/14/2016 DATE OF DISCHARGE: 12/17/2016 FINAL DIAGNOSIS(ES): 1. Acute lower gastrointestinal bleed, likely from diverticulosis. 2. Essential hypertension. 3. Hyperlipidemia. 4. Obesity; body mass index 39.3. 5. Primary osteoarthritis of multiple joints, bilateral. CONSULTATION: Dr. Figueroa from GI and Dr. Adkins from general surgery. HOSPITAL COURSE: This patient presented with lower gastrointestinal bleed, painless. Colonoscopy did show some internal hemorrhoids and diverticulosis. ( ) felt to be the cause. Patient hemoglobin stable at 11.5 at discharge. On exam, ABDOMEN: Soft, nontender. LUNGS: Clear to auscultation. Care was discussed with the patient. DISCHARGE MEDICATIONS: 1. Lotensin 10 mg p.o. daily. 2. Pravachol 20 mg p.o. daily. 3. Aspirin 81 mg one daily to be started in one week. 4. Multivitamin 1 tablet p.o. daily. Follow up with Dr. King in one week.
== END 2016-12-17 12:58 | disposition home or self-care (01) | DRG 378 ==
LOC: EC 17:48 → 4MS4W 23:45
PROVIDERS: ADMIT Hospitalist; ATTEND Hospitalist
PROC: 0DJD8ZZ Inspection of Lower Intestinal Tract, Via Natural or Artificial Opening Endoscopic (ICD-10-PCS; principal; 2016-12-17 08:00)
DX: K57.31 Diverticulosis of large intestine without perforation or abscess with bleeding (principal); D62 Acute posthemorrhagic anemia; I10 Essential (primary) hypertension; E78.5 Hyperlipidemia, unspecified; E66.9 Obesity, unspecified; Z68.39 Body mass index [BMI] 39.0-39.9, adult; M19.91 Primary osteoarthritis, unspecified site; K64.8 Other hemorrhoids; Z90.49 Acquired absence of other specified parts of digestive tract; Z96.641 Presence of right artificial hip joint; Z87.891 Personal history of nicotine dependence; Z87.440 Personal history of urinary (tract) infections; Z79.82 Long term (current) use of aspirin; Z79.899 Other long term (current) drug therapy; Z83.71 Family history of colonic polyps
CPT/HCPCS: 36415; 45378; 71020; 74000; 74177; 80053; 82272; 82550; 82553; 83690; 83735; 84484; 85025; 85027; 85610; 85730; 86850; 86900; 86901; 87324; 93005; 96360; 96361; 99285

== ENCOUNTER → 2018-03-28 | Outpatient (CLI) | payer MEDICARE, BC ==
--- NOTE | 2018-03-30 07:13 | MM ---
Reason for exam: screening (asymptomatic). Last mammogram was performed 1 year and 8 months ago. History: Patient is postmenopausal. Physical Findings: A clinical breast exam by your physician is recommended on an annual basis and results should be correlated with mammographic findings. MG 3D Screening Mammo W/Cad Bilateral CC and MLO view(s) were taken. Prior study comparison: July 22, 2016, bilateral MG 3d screening mammo w/cad. June 22, 2015, bilateral MG screening mammo w CAD. There are scattered fibroglandular densities. No significant changes when compared with prior studies. ASSESSMENT: Negative, BI-RAD 1 RECOMMENDATION: Routine screening mammogram of both breasts in 1 year.
== END | disposition home or self-care (01) ==
LOC: RADMAMWWP 17:00
PROVIDERS: ATTEND Family Medicine
DX: Z12.31 Encounter for screening mammogram for malignant neoplasm of breast (principal)
CPT/HCPCS: 77063; 77067

== ENCOUNTER → 2018-05-02 | Day surgery (SDC) | payer MEDICARE, BC ==
[2018-04-27 11:55] VITALS: BMI 39.9
[~2018-05-02] MED LIST: ALPRAZolam 0.25 MG TAB PO PRN; ASPIRIN 325 MG TAB PO STA; ASPIRIN 81 MG PO SCH; CHOLECALCIFEROL 1,000 UNIT TAB PO SCH; IOPAMIDOL-300 50ML BTL INJ ONE; IOPAMIDOL-370 125ML BTL INJ ONE; IV FLUID CONTINUATION 1,000 ML IV ONE; LIDOCAINE 1% INJ 10MG/ML (20 ML MDV) ONE; LIDOCAINE 1% INJ 10MG/ML (20 ML MDV) SQ ONE; MIDAZOLAM 2 MG/2 ML VIAL ONE; MULTIVITAMINS, THERA 1 EACH TAB PO SCH; NITROGLYCERIN SL TABS 0.4 MG TAB SUBLINGUAL PRN; NON-FORMULARY DRUG (Benazepril 10 MG) PO SCH; PRAVASTATIN SODIUM 20 MG TAB PO SCH; RX INFO: IV CONTRAST WAS GIVEN 1 EACH MISC MISCELLANE PRN; SODIUM CHLORIDE 0.9% 1,000 ML IV ONE; SODIUM CHLORIDE 0.9% 1,000 ML IV SCH; SODIUM CHLORIDE 0.9% 1,000 ML in EMPTY BAG 1 BAG IV ONE; fentaNYL (PF) 50 MCG/ML 2 ML AMP ONE
[2018-05-02 06:38] VITALS: PULSE 73; TEMP 98.8
[2018-05-02 07:05] LABS: Basophils # (A) 0.1 k/uL (0-0.2); Basophils % (A) 1 %; Eosinophils # (A) 0.3 k/uL (0-0.7); Eosinophils % (A) 3 %; HCT 45.8 % (34.0-46.0); HGB 15.2 gm/dL (11.4-16.0); Lymphocytes # (A) 2.6 k/uL (1.0-4.8); Lymphocytes % (A) 27 %; MCHC 33.1 g/dL (31.0-37.0); MCV 90.7 fL (80.0-100.0); Mean Platelet Volume 8.1; Monocytes # (A) 0.6 k/uL (0-1.0); Monocytes % (A) 6 %; Neutrophils # (A) 5.9 k/uL (1.3-7.7); Neutrophils % (A) 61 %; Platelet Count 267 k/uL (150-450); RBC 5.05 m/uL (3.80-5.40); RDW 12.9 % (11.5-15.5); WBC 9.6 k/uL (3.8-10.6)
[2018-05-02] MEDS: BENZOCAINE SPRAY 1 CAN MUCOUS MEM ONE ×2 (07:10→07:12)
[2018-05-02] MEDS: fentaNYL (PF) 50 MCG/ML 2 ML AMP IVP ONE ×2 (07:12→07:14)
[2018-05-02] MEDS: MIDAZOLAM 2 MG/2 ML VIAL IVP ONE ×2 (07:12→07:15)
[2018-05-02 07:13] LABS: Calcium 9.9 mg/dL (8.4-10.2); Potassium 4.4 mmol/L (3.5-5.1)
--- NOTE | 2018-05-02 07:50 | ECHOT ---
TRANSESOPHAGEAL ECHOCARDIOGRAM INDICATION: Evaluation of atrioventricular valve. PROCEDURE: After explained the procedure to the patient, its risks and complications, her blood pressure, heart rate, O2 saturation was monitored. The throat was sprayed with Cetacaine. She received 50 mcg intravenous fentanyl, 2 mg intravenous Versed. After obtaining moderate conscious sedated state, the probe was introduced into the esophagus without difficulty. Images were obtained. Following that, the probe was removed. There was no immediate complication. FINDINGS: Left atrial size is normal. Left atrial appendage is normal, left ventricular size and systolic function normal. The aortic valve is tricuspid valve with severe calcification and reduced opening by planimetry. The valve area is 0.8 cm2. The mitral valve revealed mild calcification. The tricuspid valve is normal. Descending thoracic aorta revealed no significant atherosclerotic changes. No pericardial effusion was noted. Contrast bubble study revealed no shunting across the interatrial septum. Doppler pulse wave and color Doppler obtained revealed a mild to moderate aortic and mitral regurgitation with mild tricuspid regurgitation. There was no shunting by color Doppler study. The peak gradient across the aortic valve was 56 mmHg with a mean of 25 mmHg. CONCLUSION: 1. Normal left ventricular size and systolic function. 2. Severely calcified aortic valve, tricuspid with aortic valve area of 0.8 cm2. 3. Mild to moderate mitral and aortic regurgitation. 4. Mild tricuspid regurgitation. 5. No shunting across the interatrial septum. MMODL / IJN: [id number] /
[2018-05-02 08:16] LABS: O2 Sat Blood Gas 70.1 %
[2018-05-02 08:19] LABS: O2 Sat Blood Gas 72.4 %
[2018-05-02 08:22] LABS: O2 Sat Blood Gas 95.1 %
--- NOTE | 2018-05-02 09:26 | CC ---
CARDIAC CATHETERIZATION REPORT Ms. Zhong is a 72-year-old female with known history of hypertension, hyperlipidemia, and progressive aortic stenosis who on transthoracic echocardiogram was consistent with severe aortic stenosis. In view of that, recommendation made regarding cardiac catheterization. The procedures, risks and complication were discussed with the patient, who is in full understanding and agreement. PROCEDURE: Patient was brought to the equipment operator/laborer in a fasting semi-sedated state after receiving fentanyl and Benadryl and achieving moderate conscious sedated state. Using Xylocaine anesthesia in the Seldinger technique, a 6-Czech sheath was introduced in the right femoral artery and an 8-Czech sheath in the right femoral vein. Right heart catheterization was performed using [place]-Messi catheter, multiple pressure and samples were obtained. Cardiac output by thermodilution was calculated. Following that, selective right and left angiography performed using 6-Czech 4 bend right and left Marcelina catheter multiple views of the coronary artery including hemiaxial views were obtained. Following that, a 6-Czech tight pigtail catheter was introduced into the left ventricle and a 30 degree SOL view of the left ventricle was obtained. Following the, catheter and sheaths were removed, hemostasis was obtained with compression of the right groin. There was no immediate complication. Patient is returned to her room in stable condition. FINDINGS: FLUOROSCOPY: There is severe calcification involving all the coronary arteries and the aortic valve. HEMODYNAMICS: The right atrial saturation 72%, pulmonary artery saturation 70%, femoral artery saturation of 95%. Cardiac output by thermodilution 5.4 L/minute and by Renae 4 L/minute. Her pulmonary artery systolic pressure of 32 with a diastolic of 16 and a mean of 22 mmHg. Pulmonary capillary wedge pressure A-wave of 16, V-wave 14 with a mean of 15 mmHg. Right ventricular systolic pressure of 28 mmHg and an end-diastolic of 4 mmHg. Right atrial A-wave of 12, V-wave of 10 with a mean of 10 mmHg. Left ventricular systolic pressure of 175 mmHg with an ascending aorta of 135 with a peak gradient of 40 mmHg and a valve area of 0.66 cm2. CORONARIES: LEFT MAIN: This is a large-sized vessel, bifurcating into left circumflex, left anterior descending artery. Left main coronary artery is without significant obstructive disease. LEFT ANTERIOR DESCENDING ARTERY: This is a calcified artery, large in caliber, reaching toward the apex with a wraparound apex segment giving rise to a large diagonal branch.. The left anterior descending artery has no evidence of high-grade stenosis. LEFT CIRCUMFLEX: This is a nondominant vessel, giving rise to a large obtuse marginal branch. In the proximal left circumflex, there is an eccentric 60% to 70% plaque. The rest of the vessel has no high-grade stenosis. RIGHT CORONARY ARTERY: This is a moderate-sized dominant vessel, bifurcating distally into PDA, posterolateral segment and branches. The proximal right coronary artery has a 95%-99% stenosis. The rest of the vessel has intimal disease without any evidence of high-grade stenosis. LEFT VENTRICULOGRAM: Left ventriculogram was performed in 30 degree SOL view and reveals normal left ventricular size and systolic function. There was no significant mitral regurgitation. CONCLUSION: 1. Calcified coronary arteries. 2. Significant disease in the proximal left circumflex and right coronary artery. 3. Severe aortic stenosis. RECOMMENDATION: In view of finding anatomy, I have recommend proceeding with evaluation for aortic valve replacement, coronary artery bypass grafting. Those findings and recommendation were discussed with the patient her family who are in full understanding and agreement. Duration of procedure is 34 minutes. MMODL / IJN: [id number] /
[2018-05-02 17:42] VITALS: BP 134/76; RESP 18
== END | disposition home or self-care (01) ==
LOC: CATHCVL 06:04
PROVIDERS: ATTEND Internal Medicine Interventional Cardiology
DX: I08.2 Rheumatic disorders of both aortic and tricuspid valves (principal); I10 Essential (primary) hypertension; E78.2 Mixed hyperlipidemia; I25.10 Atherosclerotic heart disease of native coronary artery without angina pectoris; I25.84 Coronary atherosclerosis due to calcified coronary lesion; Z87.891 Personal history of nicotine dependence; Z79.82 Long term (current) use of aspirin; Z79.899 Other long term (current) drug therapy; Z88.6 Allergy status to analgesic agent; Z88.5 Allergy status to narcotic agent; Z88.2 Allergy status to sulfonamides
CPT/HCPCS: 93312; 93320; 93325; 93460; 80048; 85018; 82810; 85025; C1894 ×2; C1769 ×2; J2250; J2001; J3010; Q9967 ×2

== ENCOUNTER → 2018-06-07 | Outpatient (CLI) | payer MEDICARE, BC ==
[2018-06-07 10:17] LABS: HCT 44.7 % (34.0-46.0); HGB 14.6 gm/dL (11.4-16.0); MCH 29.9 pg (25.0-35.0); MCHC 32.7 g/dL (31.0-37.0); MCV 91.5 fL (80.0-100.0); Mean Platelet Volume 8.2; Platelet Count 256 k/uL (150-450); RBC 4.88 m/uL (3.80-5.40)
[2018-06-07 10:24] LABS: Appearance,Urine Clear (Clear); Bilirubin,Urine Negative (Negative); Blood,Urine Negative (Negative); Color,Urine Yellow; Glucose,Urine (UA) Negative (Negative); Hyaline Casts,Urine 9 /lpf (0-2); Ketones,Urine Negative (Negative); Leukocyte Esterase,Urine Moderate (Negative); Mucus,Urine Occasional /hpf; Nitrite,Urine Negative (Negative); Partial Thromboplastin Time 23.4 sec (22.0-30.0); Protein,Urine Trace (Negative); Prothrombin Time 9.8 sec (9.0-12.0); RBC,Urine 3 /hpf (0-5); Specific Gravity,Urine 1.022 (1.001-1.035); Squamous Epithelial Cell,Urine 3 /hpf (0-4); Urobilinogen,Urine <2.0 mg/dL (<2.0); WBC,Urine 13 /hpf (0-5)
[2018-06-07 10:26] LABS: ALT 14 U/L (9-52); AST 22 U/L (14-36); Albumin 3.7 g/dL (3.5-5.0); Alkaline Phosphatase 53 U/L (38-126); Anion Gap 12 mmol/L; Blood Urea Nitrogen 17 mg/dL (7-17); Calcium 9.8 mg/dL (8.4-10.2); Carbon Dioxide 25 mmol/L (22-30); Chloride 105 mmol/L (98-107); Cholesterol 151 mg/dL (<200); Glucose 125 mg/dL (74-99); HDL Cholesterol 46 mg/dL (40-60); LDL Cholesterol,Calculated 68 mg/dL (0-99); Magnesium 1.9 mg/dL (1.6-2.3); Potassium 4.5 mmol/L (3.5-5.1); Sodium 142 mmol/L (137-145); Total Bilirubin 0.5 mg/dL (0.2-1.3); Total Protein 6.6 g/dL (6.3-8.2); Triglycerides 186 mg/dL (<150)
--- NOTE | 2018-06-07 13:30 | US ---
EXAMINATION TYPE: US carotid duplex BILAT DATE OF EXAM: 06/07/2018 COMPARISON: NONE CLINICAL HISTORY: I25.10 CORONARY ARTERY DISEASE. Pre-OP CABG Difficult exam, large neck with heavy patient breathing EXAM MEASUREMENTS: RIGHT: Peak Systolic Velocity (PSV) cm/sec ----- Right CCA: 60.7 ----- Right ICA: 99.1 ----- Right ECA: 117.3 ICA/CCA ratio: 1.6 RIGHT: End Diastole cm/sec ----- Right CCA: 11.9 ----- Right ICA: 28.0 ----- Right ECA: 15.5 LEFT: Peak Systolic Velocity (PSV) cm/sec ----- Left CCA: 65.7 ----- Left ICA: 123.7 ----- Left ECA: 131.8 ICA/CCA ratio: 1.9 LEFT: End Diastole cm/sec ----- Left CCA: 13.8 ----- Left ICA: 28.0 ----- Left ECA: 10.7 VERTEBRALS (direction of flow): Right Vertebral: Antegrade Left Vertebral: Antegrade Slightly elevated velocities left ICA and ECA, otherwise no significant stenosis seen IMPRESSION: 1. Stenosis of 50-69% within the left internal carotid artery. 2. No sonographic evidence of hemodynamically significant stenosis within the visualized right caroti d arterial system.
--- NOTE | 2018-06-07 14:42 | XR ---
EXAMINATION TYPE: XR chest 2V DATE OF EXAM: 06/07/2018 COMPARISON: 12/14/2016 HISTORY: Preoperative evaluation TECHNIQUE: Frontal and lateral views of the chest are obtained. FINDINGS: There is no focal air space opacity, pleural effusion, or pneumothorax seen. The cardiac silhouette size is mildly enlarged, stable from the prior. Linear left basilar platelike subsegmenta l atelectasis is unchanged from the prior. The osseous structures are intact. Minimal degenerative ch anges of the thoracic spine are seen. IMPRESSION: Stable cardiomegaly and chronic left basilar subsegmental atelectasis. No acute cardiopu lmonary process.
--- NOTE | 2018-06-07 15:35 | P.PN ---
Progress Note - Text Progress Note Date: 06/07/18 5 meter walk test completed 06/07/18: #1 5.95 sec #2 5.82 sec #3 4.83 sec
[2018-06-07 16:29] LABS: Hepatitis A Antibody IgM Non-Reactive (Non-Reactive); Hepatitis B Core IgM Non-Reactive (Non-Reactive)
--- NOTE | 2018-06-13 10:47 | P.ARTDOP ---
Arterial Doppler Bilateral radial artery studies: Reason for study: Preop CABG Date of study: 06/07/2018 Doppler assessment shows no segmental or right to left pressure gradient. With radial artery compression we find no significant pressure gradient on digital plethysmography. Imaging shows the right to range between 2.4 x 2.4 and 2.9 x 2.6 mm. The left ranges between 2.2 x 2.5 mm and 2.9 x 3.5 mm. Impression: Usable bilateral radial arteries.
--- NOTE | 2018-06-13 10:50 | P.VSCSTY ---
Greater Saphenous Vein Mapping This is bilateral lower extremity greater saphenous vein mapping. Date of service 06/07/2018 Vein quality and ultrasound appearance no obvious intraluminal thrombus or wall changes mid calf vein on the right a bit small.. Vein size groin right 5.2 x 6.1 groin left 6.3 x 5.5 High thigh right 3.2 x 3.1 high thigh left 4.5 x 3.9 Mid thigh right 2.5 x 2.4 mid thigh left 3.5 x 3.2 Above-knee right 2.8 x 2.3 above-knee left 3.4 x 3.8 Below knee right 2.4 x 2.0 below-knee left 2.6 x 3.0 Mid calf right 1.9 x 2.4 mid calf left to 2.2 x 2.3 Ankle right to 2.6 x 2.5 ankle left 3.2 x 3.5 Impression usable bilateral greater saphenous vein. Left leg somewhat more consistent and right thighs somewhat more consistent in size..
--- NOTE | 2018-06-13 10:51 | P.ARTDOP ---
Arterial Doppler LOWER EXTREMITY ARTERIAL DOPPLER: DATE OF SERVICE: 06/07/2018 Reason for study: Preop CABG. Doppler waveforms: Multiphasic bilaterally throughout. Pulse volume recording: []. Pressure gradients: None. Ankle-brachial indices: 0.97 on the right and greater than 1 on the left. Toe pressures: [] on the right, [] on the left Impression: Normal study.
== END | disposition home or self-care (01) ==
LOC: LABPAT 07:11
PROVIDERS: ATTEND Thoracic Surgery (Cardiothoracic Vascular Surgery)
DX: Z01.810 Encounter for preprocedural cardiovascular examination (principal); Z01.812 Encounter for preprocedural laboratory examination; I65.22 Occlusion and stenosis of left carotid artery; J98.11 Atelectasis; I25.10 Atherosclerotic heart disease of native coronary artery without angina pectoris; I11.9 Hypertensive heart disease without heart failure; I35.0 Nonrheumatic aortic (valve) stenosis; R73.9 Hyperglycemia, unspecified; Z79.01 Long term (current) use of anticoagulants; Z79.899 Other long term (current) drug therapy
CPT/HCPCS: 36415; 71046; 80053; 80061; 80074; 81001; 83036; 83735; 84443; 85027; 85610; 85730; 86850; 86900; 86901; 86920; 87070; 87086; 93880; 93922; 93923; 93930; 93970; 94150

== ENCOUNTER 2018-06-13 06:45 | Inpatient (IN) | payer MEDICARE, BC ==
[~2018-06-13 06:45] MED LIST changes: +ALBUMIN HUMAN 25% 50 ML IV ONE; +ALBUMIN HUMAN 5% 500 ML IVPB ONE; -ALPRAZolam 0.25 MG TAB PO PRN; +ASPIRIN 325 MG TAB PO ONE; -ASPIRIN 325 MG TAB PO STA; -ASPIRIN 81 MG PO SCH; +ATORVASTATIN 10 MG TAB PO ONE; +CALCIUM CHLORIDE 100 MG/ML 10 ML SYRINGE IV ONE; +CHLORHEXIDINE GLUCONATE 15 ML CUP MUCOUS MEM ONE; -CHOLECALCIFEROL 1,000 UNIT TAB PO SCH; +CLEVIDIPINE BUTYRATE 25 MG in EMPTY BAG 1 BAG IV ONE; +DEXTROSE 5% IN WATER 1,000 ML with POTASSIUM CHLORIDE 110 MEQ, MAGNESIUM SULFATE 16 MEQ... IV ONE; +DEXTROSE 5% IN WATER 1,000 ML with POTASSIUM CHLORIDE 25 MEQ, SODIUM CHLORIDE 2.5MEQ/ML... IRRIGATION ONE; +HEPARIN SODIUM 1,000 UN/ML (10ML VL) IV ONE; +HEPARIN SODIUM,PORCINE 5,000 UNIT in SODIUM CHLORIDE 0.9% 500 ML 500 ML IV ONE; -IOPAMIDOL-300 50ML BTL INJ ONE; -IOPAMIDOL-370 125ML BTL INJ ONE; -IV FLUID CONTINUATION 1,000 ML IV ONE; +LACTATED RINGERS 1,000 ML IV ONE; -LIDOCAINE 1% INJ 10MG/ML (20 ML MDV) ONE; -LIDOCAINE 1% INJ 10MG/ML (20 ML MDV) SQ ONE; +MAGNESIUM SULFATE MG 500 MG/ML IV ONE; +MANNITOL 25% 12.5 GM/50 ML VIAL IV ONE; +METOPROLOL TARTRATE 12.5 MG TAB PO ONE; -MIDAZOLAM 2 MG/2 ML VIAL ONE; -MULTIVITAMINS, THERA 1 EACH TAB PO SCH; -NITROGLYCERIN SL TABS 0.4 MG TAB SUBLINGUAL PRN; +NITROGLYCERIN-D5W PMX 25 MG/250 ML BTL IV ONE; +NITROGLYCERIN-D5W PMX 50 MG in DEXTROSE/WATER 1 250ML.BAG IV ONE; -NON-FORMULARY DRUG (Benazepril 10 MG) PO SCH; +NOREPINEPHRINE 4 MG in SODIUM CHLORIDE 0.9% 250 ML IV ONE; +PAPAVERINE 360 MG in SODIUM CHLORIDE 0.9% 90 ML IV ONE; +PHENYLEPHRINE 40 MG in SODIUM CHLORIDE 0.9% 250 ML IV ONE; +PHENYLEPHRINE-0.9% NACL SYG 1 MG/10 ML SYRINGE IV ONE; -PRAVASTATIN SODIUM 20 MG TAB PO SCH; +PROPOFOL 1,000 MG/100 ML VIAL IV ONE; +PROTAMINE SULFATE 10 MG/ML 25 ML VIAL IV ONE; +PROTAMINE SULFATE 250 MG in EMPTY BAG 1 BAG IV ONE; -RX INFO: IV CONTRAST WAS GIVEN 1 EACH MISC MISCELLANE PRN; +SODIUM BICARB 8.4% 50 ML SYR (1 MEQ/ML) IV ONE; -SODIUM CHLORIDE 0.9% 1,000 ML IV SCH; -SODIUM CHLORIDE 0.9% 1,000 ML in EMPTY BAG 1 BAG IV ONE; +TRANEXAMIC ACID 2,000 MG in SODIUM CHLORIDE 0.9% 180 ML IV ONE; +ceFAZolin 2,000 MG in SODIUM CHLORIDE 0.9% 30 ML IVPB ONE; -fentaNYL (PF) 50 MCG/ML 2 ML AMP ONE
[2018-06-13] MEDS ORDERED: fentaNYL (PF) 50 MCG/ML 50 ML VIAL ONE (09:46)
[2018-06-13] MEDS ORDERED: PROPOFOL 10 MG/ML 20 ML VIAL IV ONE (09:46)
[2018-06-13] MEDS ORDERED: PHENYLEPHRINE-0.9% NACL SYG 1 MG/10 ML SYRINGE ONE (09:46)
[2018-06-13] MEDS ORDERED: fentaNYL (PF) 50 MCG/ML 2 ML AMP ONE (09:46)
[2018-06-13] MEDS ORDERED: ALBUMIN HUMAN 5% 250 ML BOTTLE IVPB ONE (09:46)
[2018-06-13] MEDS ORDERED: MAGNESIUM SULFATE 4 MEQ/ML 10ML VIAL ONE (09:46)
[2018-06-13] MEDS ORDERED: WATER FOR INJECTION, STERILE 10 ML VIAL IV ONE (09:46)
[2018-06-13] MEDS ORDERED: MIDAZOLAM 2 MG/2 ML VIAL ONE (09:46)
[2018-06-13] MEDS ORDERED: SODIUM CHLORIDE 0.9% IRRIG 1,000 ML BTL IRRIGATION ONE (09:46)
[2018-06-13] MEDS ORDERED: ELECTROLYTE-R (PH 7.4) 1,000 ML IV.SOLN IV ONE (09:46)
[2018-06-13] MEDS ORDERED: SODIUM CHLORIDE 0.9% 250 ML BAG ONE (09:46)
[2018-06-13] MEDS ORDERED: VECURONIUM 10 MG VIAL IV ONE (09:46)
[2018-06-13] MEDS ORDERED: HEPARIN SODIUM,PORCINE 10,000 UNIT/ML 1 ML VIAL ONE (09:46)
[2018-06-13] MEDS ORDERED: TRANEXAMIC ACID 1,000 MG/10 ML VIAL ONE (09:46)
[2018-06-13 10:19] LABS: ABG Base Excess 1.2 mmol/L; ABG HCO3 27 mmol/L (21-25); ABG PCO2 44 mmHg (35-45); ABG PH 7.39 (7.35-7.45); ABG Potassium Whole Blood 4.2 mmol/L (3.4-4.5); ABG Sodium Whole Blood 140 mmol/L (135-146); ABG TCO2 28 mmol/L (19-24)
[2018-06-13 11:16] LABS: ABG Base Excess 0.2 mmol/L; ABG HCO3 25 mmol/L (21-25); ABG PCO2 39 mmHg (35-45); ABG PH 7.41 (7.35-7.45); ABG Potassium Whole Blood 3.7 mmol/L (3.4-4.5); ABG Sodium Whole Blood 140 mmol/L (135-146); ABG TCO2 26 mmol/L (19-24)
[2018-06-13 14:12] LABS: ABG PO2 >420 mmHg (83-108)
[2018-06-13 14:12] LABS: ABG PO2 >420 mmHg (83-108)
[2018-06-13] MEDS ORDERED: ALBUMIN HUMAN 5% 250 ML in EMPTY BAG 1 BAG IVPB PRN (14:45)
[2018-06-13] MEDS ORDERED: Magnesium Replacement Protocol 1 EACH MISC MISCELLANE PRN (14:45)
[2018-06-13] MEDS ORDERED: Potassium Replacement Protocol 1 EACH MISC MISCELLANE PRN (14:45)
[2018-06-13] MEDS ORDERED: AMIODARONE 450 MG in DEXTROSE 5% IN WATER 250 ML IV PRN ×2 (14:45)
[2018-06-13] MEDS ORDERED: METOCLOPRAMIDE 5 MG/ML 2 ML VIAL IVP PRN (14:45)
[2018-06-13] MEDS ORDERED: IPRATROPIUM-ALBUTEROL 3 ML NEB INHALATION PRN (14:45)
[2018-06-13] MEDS ORDERED: NITROGLYCERIN-D5W PMX 50 MG in DEXTROSE/WATER 1 250ML.BAG IV SCH (14:45)
[2018-06-13] MEDS ORDERED: BENZOCAINE/MENTHOL LOZENG 1 EACH LOZENGE MUCOUS MEM PRN (14:45)
[2018-06-13] MEDS ORDERED: ONDANSETRON 4 MG/2 ML VIAL IVP PRN (14:45)
[2018-06-13] MEDS ORDERED: PROPOFOL 1,000 MG in EMPTY BAG 1 BAG IV SCH (14:45)
[2018-06-13] MEDS ORDERED: Phosphorus Replacement Protoco 1 EACH MISC MISCELLANE PRN (14:45)
[2018-06-13] MEDS ORDERED: CALCIUM CHLORIDE 1,000 MG in SODIUM CHLORIDE 0.9% 100 ML IV PRN (14:45)
[2018-06-13] MEDS ORDERED: DEXTROSE 5% IN WATER 100 ML with AMIODARONE 150 MG IV PRN (14:45)
--- NOTE | 2018-06-13 14:59 | OP ---
OPERATIVE REPORT DATE OF THE OPERATION: 06/13/2018. ATTENDING SURGEON: Dr. Florencio Jimenez. ASSIST: 1. LORI Guerrero. 2. LORI Rodriguez. 3. Vi Hughes____, LORI. PREOPERATIVE DIAGNOSES: 1. Severe aortic stenosis. 2. Two vessel coronary artery disease. POSTOPERATIVE DIAGNOSES: 1. Severe aortic stenosis. 2. Two vessel coronary artery disease. PROCEDURES: 1. Aortic valve replacement with a #23 mm inspirations [place] bioprosthetic aortic valve. Coronary bypass grafting x2 with reverse saphenous vein graft off the aorta to the first obtuse marginal artery and the right coronary artery with left lower extremity greater saphenous vein endoscopic vein harvesting. 2. Clip ligation of the left atrial appendage with a #35 mm AtriClip and intraoperative HANNAH. ANESTHESIA: General. BLOOD LOSS: 500 mL. SUMMARY: Patient taken to the operative room, placed in a supine position. Following administration of general tracheal anesthetic, placement of a Alborn-Messi catheter, arterial line adequate IV access, Villegas catheter, patient carefully prepped and draped in a sterile fashion using Betadine paint and sterile towels. Greater saphenous vein was harvested from the left lower extremity with endovascular vein harvesting technique. All branches were doubly tied and divided and the incisions closed in 2 layers. A midline incision in the chest made, sternum divided. Pericardium was opened. Heart size was mildly enlarged. The aorta was relatively soft. Patient was heparinized and ACT greater than 480. The aorta and vena cava were cannulated. Antegrade and retrograde cardioplegic catheters positioned in the ascending aorta and the coronary sinus. Patient was placed on bypass, cross-clamp placed, heart arrested with 1 L of antegrade followed by 500 mL of retrograde cardioplegia. Retrograde cardioplegia was delivered 300-500 mL at the end of each 20 minute interval. First base of left atrial appendage was measured and a #35 mm AtriClip was brought into the field, opened, secured at the base officially obliterating the left atrial appendage. The distal anastomosis constructed reverse saphenous vein graft anastomosis to the distal right coronary artery constructed using a 7-0 Prolene running suture. Caliber of this vessel was 1.75-2 mm. Next, saphenous vein anastomosis to the first obtuse marginal artery was constructed in a similar fashion, this was a 2.0 mm vessel. Next, a transverse aortotomy incision was made 2 cm distal to the takeoff of the right coronary artery. A handheld retractor was placed. The aortic valve was a trileaflet, very heavily calcified valve. The valve leaflets were carefully excised. The anulus debrided and was irrigated out copiously with 2 L of cold saline. It sized to a #23 mm [place] bioprosthetic Inspiris aortic valve. The valve was brought in the operative field, prepared in the usual fashion. The 2-0 Tycron pledgetted sutures were placed ventricularly base circumferentially and these were then passed through the sewing cuff of the valve which was seated and seated well. All sutures were then secured and cut using the core knot ligature system. The valve seated well. At this point, the aortotomy incision was closed and a double layered pledgeted 4 Prolene vertical mattress followed by an [id number] stitch on both sides. Next 2 proximal anastomosis were constructed in the ascending aorta using 6-0 Prolene running suture. Patient was placed head down. The aortic root was vented, warm blood retrograde cardioplegia was run 1 L after complete de-airing maneuvers per orally were again performed. The patient was brought. Cross-clamp was removed. Once beating normal sinus rhythm and rewarmed, the patient was brought off bypass, came off bypass uneventfully with good hemodynamics. Protamine delivered. Patient decannulated. Atrial pacing wires were placed, mediastinal right pleural chest tubes were placed. At this point, the sternum was closed with seven #6 sternal wires. Skin and subcutaneous tissue pressure closed in 3 layers. No complications. The procedure well, was taken to the cardiovascular intensive care unit in stable condition. MMODL / IJN: [id number] /
--- NOTE | 2018-06-13 15:08 | XR ---
EXAMINATION TYPE: XR chest 1V portable DATE OF EXAM: 06/13/2018 Comparison: 06/07/2018 Clinical History: 72-year-old female MISSING MOSQUITO INSTRUMENT post surgery, surgical count off. Findings: Right IJ sheath with Sylvester-Messi catheter is present. Tip in the proximal right main pulmonary artery. Median sternotomy wires with prosthetic aortic valve. Mediastinal drain and right-sided chest tube ar e present. No appreciable pneumothorax. ET tube is slightly low in position measuring 1.2 cm from the russ. Epicardial pacer leads are present. No retained mosquito forceps identified. Cholecystectomy clips are noted. Mild interstitial prominence without consolidation or pleural effusion. Impression: 1. Post surgical changes. No retained mosquito forceps identified in the chest. 2. Slightly low positioning of the ET tube, 1.2 cm from the russ. Attention on follow-up.
[2018-06-13 15:16] LABS: Glucose,Whole Blood 97 mg/dL (75-99)
--- NOTE | 2018-06-13 15:20 | P.CNPUL ---
History of Present Illness Consult date: 06/13/18 Reason for consult: other Chief complaint: Status post aortic valve replacement and two-vessel bypass grafting History of present illness: Pulmonary consult dated 06/13/2018 This is a 72-year-old female was evaluated by cardiology and cardiothoracic surgery. She apparently has a history of coronary artery disease and severe aortic stenosis. She appeared apparently presented with progressive shortness of breath on exertion. She was evaluated and found to have severe aortic stenosis and two-vessel coronary artery disease. Anyway, she underwent two- vessel bypass grafting aortic valve replacement. She does have a history of hypertension hyperlipidemia and previous history of tobacco use. Her catheterization revealed 70% proximal circumflex disease and 95% proximal RCA disease. In addition, she had severe aortic stenosis. Her medications included Lotensin, baby aspirin, multivitamins, pravastatin, vitamin B12, vitamin D3. She is currently back in the intensive care unit on the SIMV mode. She is on 100% PEEP of 5. Arterial blood gases are pending and chest x-ray is pending. She appears to be relatively stable and the nurses are starting to settle her in. The surgery today was done by Dr. Jimenez. Review of Systems ROS unobtainable: due to endotracheal tube Past Medical History Past Medical History: Hyperlipidemia, Hypertension, Osteoarthritis (OA) Additional Past Medical History / Comment(s): SOB,angel lower ext edema,states heart murmur,hx rectal bleed History of Any Multi-Drug Resistant Organisms: None Reported Past Surgical History: Section, Cholecystectomy, Hernia Repair, Joint Replacement, Orthopedic Surgery Additional Past Surgical History / Comment(s): 07/25/16 total R hip arthroplasty anterior approach. Other surgical hx: Right (?) knee sx for chipped bone as 8 yr old child, colonoscopy,egd,angel carpel tunnel Past Anesthesia/Blood Transfusion Reactions: No Reported Reaction Additional Past Anesthesia/Blood Transfusion Reaction / Comment(s): no hx blood transfusion Smoking Status: Former smoker - Past Family History Son(s) Family Medical History: Cancer Additional Family Medical History / Comment(s): leukemia Mother Family Medical History: No Reported History Additional Family Medical History / Comment(s): Mother was healthy and lived to be 92yrs old. Father Family Medical History: No Reported History Additional Family Medical History / Comment(s): Father lived to be 85 yrs old. Medications and Allergies Home Medications Medication Instructions Recorded Confirmed Type Benazepril [Lotensin] 10 mg PO DAILY 07/19/16 06/13/18 History Pravastatin Sodium [Pravachol] 20 mg PO DAILY 07/19/16 06/13/18 History Aspirin 81 mg PO DAILY 12/14/16 06/13/18 History Cholecalciferol [Vitamin D3] 5,000 unit PO DAILY 04/27/18 06/13/18 History Cyanocobalamin (Vitamin B-12) 2,500 mcg PO DAILY 04/27/18 06/13/18 History [Vitamin B-12] Multivit-Min/Iron/Folic/Lutein 1 tab PO DAILY 06/07/18 06/13/18 History [Centrum Silver Women Tablet] Allergies Allergy/AdvReac Type Severity Reaction Status Date / Time hydrocodone [From Lortab] Allergy Rash/Hives Verified 06/13/18 15:01 Sulfa (Sulfonamide Allergy Rash/Hives Verified 06/13/18 15:01 Antibiotics) Physical Exam Osteopathic Statement: *. No significant issues noted on an osteopathic structural exam other than those noted in the History and Physical/Consult. Vitals: Vital Signs Temp Pulse Resp BP BP Pulse Ox 06/13/18 06:58 96.2 F L 84 16 162/77 145/73 95 Intake and Output 06/13/18 06/13/18 06/13/18 06:59 14:59 22:59 Intake Total 31 Output Total 1400 Balance -1369 Intake: IV 31 Output: Urine 400 Estimated Blood Loss 1000 No acute distress, sedated, with an orally placed endotracheal tube and NG tube. HEENT examination is grossly unremarkable. Mucous membranes are moist. Neck supple. Full range of motion. No adenopathy thyromegaly or neck vein distention. Cordis catheter in place with a PA catheter noted. Cardiovascular examination reveals regular rhythm rate. S1-S2 normal. No S3 or S4. No discernible murmur noted. Heart sounds are distant. Lungs reveal mostly clear breath sounds. Breath sounds equal bilaterally. A few scattered rhonchi are noted. No wheezes or crackles. Breath sounds equal bilaterally.. Abdomen soft without bowel sounds. No masses appreciated. Abdomen is obese. Extremities are intact. No cyanosis clubbing or edema. Skin is without rash or lesion. Neurologic examination could not be adequately assessed. Results - Laboratory Findings ABG ABG pH 7.41 (7.35-7.45) 06/13/18 11:20 ABG pCO2 39 mmHg (35-45) 06/13/18 11:20 ABG pO2 >420 mmHg (83-108) H 06/13/18 11:20 ABG O2 Saturation 100.0 % (94-97) H 06/13/18 11:20 Abnormal lab findings: Abnormal Labs 06/07/18 06/13/18 06/13/18 09:00 10:23 11:20 ABG pO2 >420 H >420 H ABG HCO3 27 H ABG Total CO2 28 H 26 H ABG O2 Saturation 100.0 H 100.0 H ABG Glucose 103 H 111 H Hemoglobin 11.1 L Arterial Blood Glucose 103 H 111 H Crossmatch See Detail - Diagnostic Findings Chest x-ray: report reviewed, image reviewed (As the information becomes available, labs x-rays a medications will be reviewed.) Assessment and Plan Assessment: Assessment Postop day #0, status post three-vessel bypass grafting and aortic valve replacement for severe aortic stenosis Routine postoperative ventilator management Obesity History of hypertension History of hyperlipidemia Vitamin D deficiency Previous history of tobacco use Plan: Plan dated 06/13/2018 The patient's blood gases will be evaluated and adjusted accordingly. The patient should be placed on DuoNeb every 4 hours [id number]. We'll await the chest x-ray. We'll continue to follow the patient closely and hopefully get the patient extubated within the 6 hour window or sooner. The patient appears to be relatively stable this time. The patient's on the SIMV mode. Additional recommendations and suggestions are forthcoming. Prognosis is guarded. We will continue to follow closely. Blood gases done in the OR show a PaO2 of fluid within 420 a PaCO2 of 39 and a pH of 7.41. No additional labs are back yet and the chest x-ray is currently pending. Time with Patient: Greater than 30
[2018-06-13] MEDS: CLEVIDIPINE BUTYRATE 25 MG in EMPTY BAG 1 BAG IV SCH ×4 (15:30→23:41)
[2018-06-13 15:52] LABS: ABG HCO3 25 mmol/L (21-25); ABG Oxygen Saturation 99.1 % (94-97); ABG PCO2 59 mmHg (35-45); ABG PH 7.24 (7.35-7.45); ABG PO2 179 mmHg (83-108); ABG TCO2 27 mmol/L (19-24)
[2018-06-13 15:56] LABS: Basophils % (A) 0 %; Eosinophils # (A) 0.1 k/uL (0-0.7); Eosinophils % (A) 1 %; HCT 27.7 % (34.0-46.0); Lymphocytes # (A) 1.4 k/uL (1.0-4.8); Lymphocytes % (A) 12 %; MCH 30.9 pg (25.0-35.0); MCHC 33.5 g/dL (31.0-37.0); MCV 92.1 fL (80.0-100.0); Mean Platelet Volume 8.1; Monocytes # (A) 0.3 k/uL (0-1.0); Monocytes % (A) 2 %; Neutrophils # (A) 9.8 k/uL (1.3-7.7); Neutrophils % (A) 85 %; RBC 3.01 m/uL (3.80-5.40); RDW 13.2 % (11.5-15.5); WBC 11.6 k/uL (3.8-10.6)
[2018-06-13 15:58] LABS: Glucose,Whole Blood 91 mg/dL (75-99)
[2018-06-13 16:02] LABS: HGB 9.3 gm/dL (11.4-16.0); Platelet Count 125 k/uL (150-450)
[2018-06-13 16:06] LABS: Ionized Calcium 4.9 mg/dL (4.5-5.3)
[2018-06-13 16:14] LABS: INR 1.2 (<1.2); Partial Thromboplastin Time 32.4 sec (22.0-30.0); Prothrombin Time 11.6 sec (9.0-12.0)
[2018-06-13 16:19] LABS: ALT 42 U/L (9-52); AST 84 U/L (14-36); Albumin 3.5 g/dL (3.5-5.0); Alkaline Phosphatase <20 U/L (38-126); Anion Gap 8 mmol/L; Blood Urea Nitrogen 13 mg/dL (7-17); Calcium 8.3 mg/dL (8.4-10.2); Carbon Dioxide 24 mmol/L (22-30); Chloride 108 mmol/L (98-107); Glucose 88 mg/dL (74-99); Magnesium 2.5 mg/dL (1.6-2.3); Potassium 4.1 mmol/L (3.5-5.1); Sodium 140 mmol/L (137-145); Total Protein 5.3 g/dL (6.3-8.2)
[2018-06-13] MEDS: LACTATED RINGERS 1,000 ML IV SCH (16:27)
[2018-06-13] MEDS: ceFAZolin IN SWFI 2 GM/20 ML SYRINGE IVP SCH ×2 (16:29→23:42)
[2018-06-13] MEDS ORDERED: INSULIN REGULAR BOLUS (FROM DRIP BAG) IV PRN (16:37)
[2018-06-13 16:55] LABS: Glucose,Whole Blood 144 mg/dL (75-99)
[2018-06-13] MEDS: INSULIN REGULAR 100 UNIT in SODIUM CHLORIDE 0.9% 100 ML IV SCH (17:00)
[2018-06-13] MEDS: IPRATROPIUM-ALBUTEROL 3 ML NEB INHALATION SCH ×2 (17:21→20:06)
[2018-06-13 17:40] LABS: Glucose,Whole Blood 134 mg/dL (75-99)
[2018-06-13] MEDS: ACETAMINOPHEN IV (For NPO) 1,000 MG in EMPTY BAG 1 BAG IVPB SCH ×2 (17:44→23:41)
[2018-06-13 18:19] LABS: Basophils % (A) 0 %; Eosinophils # (A) 0.2 k/uL (0-0.7); Eosinophils % (A) 1 %; HCT 32.8 % (34.0-46.0); HGB 11.2 gm/dL (11.4-16.0); Lymphocytes # (A) 0.7 k/uL (1.0-4.8); Lymphocytes % (A) 5 %; MCH 32.1 pg (25.0-35.0); MCHC 34.1 g/dL (31.0-37.0); Monocytes # (A) 0.4 k/uL (0-1.0); Monocytes % (A) 3 %; Neutrophils # (A) 14.1 k/uL (1.3-7.7); Neutrophils % (A) 91 %; Platelet Count 158 k/uL (150-450); RBC 3.49 m/uL (3.80-5.40); RDW 13.2 % (11.5-15.5); WBC 15.5 k/uL (3.8-10.6)
[2018-06-13 18:34] LABS: Glucose,Whole Blood 173 mg/dL (75-99)
[2018-06-13 18:42] LABS: Anion Gap 10 mmol/L; Blood Urea Nitrogen 13 mg/dL (7-17); Calcium 8.4 mg/dL (8.4-10.2); Carbon Dioxide 22 mmol/L (22-30); Chloride 106 mmol/L (98-107); Glucose 163 mg/dL (74-99); Potassium 4.4 mmol/L (3.5-5.1); Sodium 138 mmol/L (137-145)
[2018-06-13 19:44] LABS: Glucose,Whole Blood 163 mg/dL (75-99)
[2018-06-13 20:40] LABS: Glucose,Whole Blood 157 mg/dL (75-99)
[2018-06-13 20:47] LABS: ABG Base Excess -3.7 mmol/L; ABG HCO3 23 mmol/L (21-25); ABG Oxygen Saturation 95.3 % (94-97); ABG PCO2 47 mmHg (35-45); ABG PO2 78 mmHg (83-108); ABG TCO2 24 mmol/L (19-24)
[2018-06-13 21:17] LABS: Basophils % (A) 0 %; Eosinophils % (A) 0 %; HCT 31.7 % (34.0-46.0); HGB 10.4 gm/dL (11.4-16.0); Lymphocytes # (A) 0.4 k/uL (1.0-4.8); Lymphocytes % (A) 2 %; MCH 30.6 pg (25.0-35.0); MCHC 32.9 g/dL (31.0-37.0); Mean Platelet Volume 8.1; Monocytes # (A) 0.5 k/uL (0-1.0); Monocytes % (A) 3 %; Neutrophils # (A) 15.5 k/uL (1.3-7.7); Neutrophils % (A) 94 %; Platelet Count 148 k/uL (150-450); RBC 3.41 m/uL (3.80-5.40); WBC 16.6 k/uL (3.8-10.6)
[2018-06-13 21:28] LABS: Glucose,Whole Blood 155 mg/dL (75-99)
[2018-06-13 21:34] LABS: Magnesium 2.2 mg/dL (1.6-2.3); Potassium 4.1 mmol/L (3.5-5.1)
[2018-06-13] MEDS ORDERED: FUROSEMIDE 10 MG/ML 2 ML VIAL IV ONE (21:36)
[2018-06-13] MEDS: CHLORHEXIDINE GLUCONATE 15 ML CUP MUCOUS MEM SCH (21:40)
[2018-06-13] MEDS: HEPARIN SODIUM,PORCINE 5,000 UNIT/ML 1 ML VIAL SQ SCH (21:52)
[2018-06-13] MEDS: MUPIROCIN 2% OINT 22 GM TUBE NASAL SCH (22:15)
[2018-06-13 22:52] LABS: Glucose,Whole Blood 157 mg/dL (75-99)
[2018-06-13 23:31] LABS: Glucose,Whole Blood 147 mg/dL (75-99)
[2018-06-14 00:09] LABS: Glucose,Whole Blood 146 mg/dL (75-99)
[2018-06-14 01:10] LABS: Glucose,Whole Blood 141 mg/dL (75-99)
[2018-06-14 03:22] LABS: Glucose,Whole Blood 105 mg/dL (75-99)
[2018-06-14 04:16] LABS: Glucose,Whole Blood 140 mg/dL (75-99)
[2018-06-14 04:30] LABS: Basophils % (A) 0 %; Eosinophils # (A) 0.2 k/uL (0-0.7); Eosinophils % (A) 1 %; HCT 32.3 % (34.0-46.0); HGB 10.8 gm/dL (11.4-16.0); Lymphocytes # (A) 0.2 k/uL (1.0-4.8); Lymphocytes % (A) 1 %; MCH 31.1 pg (25.0-35.0); MCHC 33.5 g/dL (31.0-37.0); MCV 92.8 fL (80.0-100.0); Mean Platelet Volume 8.7; Monocytes # (A) 0.7 k/uL (0-1.0); Monocytes % (A) 4 %; Neutrophils # (A) 17.8 k/uL (1.3-7.7); Neutrophils % (A) 94 %; Platelet Count 140 k/uL (150-450); RBC 3.48 m/uL (3.80-5.40); RDW 13.1 % (11.5-15.5)
[2018-06-14 04:41] LABS: INR 1.2 (<1.2); Partial Thromboplastin Time 25.8 sec (22.0-30.0); Prothrombin Time 11.3 sec (9.0-12.0)
[2018-06-14 04:54] LABS: ALT 62 U/L (9-52); AST 123 U/L (14-36); Albumin 3.4 g/dL (3.5-5.0); Alkaline Phosphatase 31 U/L (38-126); Anion Gap 7 mmol/L; Blood Urea Nitrogen 13 mg/dL (7-17); Calcium 8.6 mg/dL (8.4-10.2); Carbon Dioxide 25 mmol/L (22-30); Chloride 104 mmol/L (98-107); Glucose 129 mg/dL (74-99); Potassium 4.4 mmol/L (3.5-5.1); Sodium 136 mmol/L (137-145); Total Bilirubin 1.3 mg/dL (0.2-1.3); Total Protein 5.4 g/dL (6.3-8.2)
[2018-06-14 05:05] LABS: Glucose,Whole Blood 140 mg/dL (75-99)
[2018-06-14] MEDS: ACETAMINOPHEN IV (For NPO) 1,000 MG in EMPTY BAG 1 BAG IVPB SCH ×3 (05:26→17:11)
[2018-06-14] MEDS: HEPARIN SODIUM,PORCINE 5,000 UNIT/ML 1 ML VIAL SQ SCH ×3 (05:26→21:45)
[2018-06-14 07:06] LABS: Glucose,Whole Blood 134 mg/dL (75-99)
--- NOTE | 2018-06-14 07:08 | P.CRDCN ---
History of Present Illness Consult date: 06/14/18 Chief complaint: Status post aortic valve replacement/coronary artery bypass grafting History of present illness: This is a pleasant 72-year-old female patient who sees Dr. Bergeron as an outpatient who was admitted to the hospital yesterday and underwent open heart surgery where the patient received aortic valve replacement using bioprosthetic valve #23 along with coronary artery bypass grafting 2 where she received reverse SVG to OM and reverse SVG to RCA. This is postoperative patient day #1. The patient was extubated on the same day of the surgery. She remains hemodynamically stable and not requiring any vasopressors. She remains in normal sinus mechanism with some PVCs. Overall she looks very comfortable, sitting in the chair, doesn't look in any distress. Interim of medications, she is on aspirin and she will be on Plavix later on today. Beside that she is on statin as well as. She is in process of having chest x-ray which we will follow-up with. We will continue the current medical regimen, continue monitor the urine output , continue monitor the rhythm, monitor the hemoglobin, and follow-up with the patient. Past Medical History Past Medical History: Hyperlipidemia, Hypertension, Osteoarthritis (OA) Additional Past Medical History / Comment(s): SOB,angel lower ext edema,states heart murmur,hx rectal bleed History of Any Multi-Drug Resistant Organisms: None Reported Past Surgical History: Section, Cholecystectomy, Hernia Repair, Joint Replacement, Orthopedic Surgery Additional Past Surgical History / Comment(s): 07/25/16 total R hip arthroplasty anterior approach. Other surgical hx: Right (?) knee sx for chipped bone as 8 yr old child, colonoscopy,egd,angel carpel tunnel Past Anesthesia/Blood Transfusion Reactions: No Reported Reaction Additional Past Anesthesia/Blood Transfusion Reaction / Comment(s): no hx blood transfusion Smoking Status: Former smoker - Past Family History Son(s) Family Medical History: Cancer Additional Family Medical History / Comment(s): leukemia Mother Family Medical History: No Reported History Additional Family Medical History / Comment(s): Mother was healthy and lived to be 92yrs old. Father Family Medical History: No Reported History Additional Family Medical History / Comment(s): Father lived to be 85 yrs old. Medications and Allergies Home Medications Medication Instructions Recorded Confirmed Type Benazepril [Lotensin] 10 mg PO DAILY 07/19/16 06/13/18 History Pravastatin Sodium [Pravachol] 20 mg PO DAILY 07/19/16 06/13/18 History Aspirin 81 mg PO DAILY 12/14/16 06/13/18 History Cholecalciferol [Vitamin D3] 5,000 unit PO DAILY 04/27/18 06/13/18 History Cyanocobalamin (Vitamin B-12) 2,500 mcg PO DAILY 04/27/18 06/13/18 History [Vitamin B-12] Multivit-Min/Iron/Folic/Lutein 1 tab PO DAILY 06/07/18 06/13/18 History [Centrum Silver Women Tablet] Allergies Allergy/AdvReac Type Severity Reaction Status Date / Time hydrocodone [From Lortab] Allergy Rash/Hives Verified 06/13/18 15:01 Sulfa (Sulfonamide Allergy Rash/Hives Verified 06/13/18 15:01 Antibiotics) Physical Exam Vitals: Vital Signs Temp Pulse Resp BP Pulse Ox 06/14/18 05:00 80 18 118/65 96 06/14/18 04:30 87 18 118/65 94 L 06/14/18 04:00 99.0 F 85 18 116/65 97 06/14/18 03:30 84 18 116/65 99 06/14/18 03:00 82 18 116/43 95 06/14/18 02:30 85 18 116/43 98 06/14/18 02:00 86 18 107/53 93 L 06/14/18 01:30 83 18 107/53 95 06/14/18 01:00 80 18 118/64 93 L 06/14/18 00:30 80 22 118/64 94 L 06/14/18 00:00 98.4 F 80 18 118/60 97 06/13/18 23:30 82 18 118/60 96 06/13/18 23:00 81 20 103/73 98 06/13/18 22:50 82 22 103/73 95 06/13/18 22:30 81 103/73 92 L 06/13/18 22:00 100 112/69 90 L 06/13/18 21:30 84 18 112/69 94 L 06/13/18 21:00 87 18 109/62 94 L 06/13/18 20:30 81 18 109/62 94 L 06/13/18 20:00 98.4 F 86 18 117/73 92 L 06/13/18 19:30 81 117/73 94 L 06/13/18 19:00 81 94/60 97 06/13/18 18:45 75 94/60 91 L 06/13/18 18:30 84 94/60 91 L 06/13/18 18:15 84 94/60 91 L 06/13/18 18:00 83 96/66 92 L 06/13/18 17:45 84 96/66 92 L 06/13/18 17:30 87 96/66 92 L 06/13/18 17:15 79 96/66 92 L 06/13/18 17:00 80 116/64 91 L 06/13/18 16:45 81 116/64 92 L 06/13/18 16:30 84 116/64 92 L 06/13/18 16:15 86 116/64 93 L 06/13/18 16:00 84 108/67 100 06/13/18 15:45 77 108/67 100 06/13/18 15:30 74 100 06/13/18 15:21 71 100 06/13/18 14:45 100 Intake and Output 06/13/18 06/14/18 06/14/18 22:59 06:59 14:59 Intake Total 928.468 2116.833 Output Total 1261 1560 Balance -580.811 -41.167 Intake: IV 457 503 Co/CI 30 90 Lactated Ringers 1,000 ml 400 350 @ 50 mls/hr IV .Q20H [facility] Rx#:[id number] pressure bag 27 63 Intake, IV Titration 223.189 140.833 Amount ACETAMINOPHEN IV (For NPO 100 100 ) 1,000 mg In Empty Bag 1 bag @ 400 mls/hr IVPB Q6HR [facility] Rx#:[id number] Clevidipine Butyrate 25 70.167 27.333 mg In Empty Bag 1 bag @ 1 MG/HR 2 mls/hr IV .Q24H [facility] Rx#:[id number] Insulin Regular 100 unit 12.576 13.500 In Sodium Chloride 0.9% 100 ml @ Per Protocol IV .Q0M [facility] Rx#:[id number] Propofol 1,000 mg In 40.446 Empty Bag 1 bag @ Titrate IV .Q0M [facility] Rx#: [id number] Oral 875 Output: Chest Tube Drainage 356 170 Chest Tube Right Pleural/ 356 170 Mediastinal Gastric Drainage 50 Urine 855 1390 Other: Voiding Method Indwelling Catheter Indwelling Catheter Weight 108 kg 108.5 kg ABP, PAP, CO, CI - Last 8 Hours Arterial Blood Pressure 140/51 Arterial Blood Pressure 127/58 Arterial Blood Pressure 133/60 Arterial Blood Pressure 129/57 Arterial Blood Pressure 101/50 Arterial Blood Pressure 125/55 Arterial Blood Pressure 107/53 Arterial Blood Pressure 123/55 Arterial Blood Pressure 124/55 Arterial Blood Pressure 122/54 Pulmonary Artery Pressure 27/17 Pulmonary Artery Pressure 26/16 Pulmonary Artery Pressure 32/17 Pulmonary Artery Pressure 31/20 Pulmonary Artery Pressure 37/19 Pulmonary Artery Pressure 39/20 Pulmonary Artery Pressure 35/18 Pulmonary Artery Pressure 34/18 Pulmonary Artery Pressure 30/17 Pulmonary Artery Pressure 37/21 Pulmonary Artery Pressure 35/20 Cardiac Output 5.6 Cardiac Output 5.7 Cardiac Output 5.6 Cardiac Output 5.6 Cardiac Output 5.6 Cardiac Output 5.6 Cardiac Output 5.6 Cardiac Output 5.6 Cardiac Output 5.6 Cardiac Output 5.6 Cardiac Output 5.6 Cardiac Output 5.7 Cardiac Index 2.8 Cardiac Index 2.7 - Constitutional General appearance: no acute distress - Respiratory Respiratory: bilateral: CTA - Cardiovascular Rhythm: regular Heart sounds: normal: S1, S2 Abnormal Heart Sounds: systolic murmur Results 06/14/18 04:17 06/14/18 04:17 Cardiac Enzymes 06/13/18 06/14/18 Range/Units 14:45 04:17 AST 84 H 123 H (14-36) U/L Coagulation 06/13/18 06/14/18 Range/Units 14:45 04:17 PT 11.6 11.3 (9.0-12.0) sec APTT 32.4 H 25.8 (22.0-30.0) sec CBC 06/13/18 06/13/18 06/13/18 Range/Units 15:15 18:10 20:33 WBC 11.6 H 15.5 H 16.6 H (3.8-10.6) k/uL RBC 3.01 L 3.49 L 3.41 L (3.80-5.40) m/uL Hgb 9.3 L D 11.2 L 10.4 L (11.4-16.0) gm/dL Hct 27.7 L 32.8 L 31.7 L (34.0-46.0) % Plt Count 125 L D 158 148 L (150-450) k/uL 06/14/18 Range/Units 04:17 WBC 19.0 H (3.8-10.6) k/uL RBC 3.48 L (3.80-5.40) m/uL Hgb 10.8 L (11.4-16.0) gm/dL Hct 32.3 L (34.0-46.0) % Plt Count 140 L (150-450) k/uL Comprehensive Metabolic Panel 06/13/18 06/13/18 06/13/18 Range/Units 14:45 18:15 20:33 Sodium 140 138 (137-145) mmol/L Potassium 4.1 4.4 4.1 (3.5-5.1) mmol/L Chloride 108 H 106 (98-107) mmol/L Carbon Dioxide 24 22 (22-30) mmol/L BUN 13 13 (7-17) mg/dL Creatinine 0.59 0.66 (0.52-1.04) mg/dL Glucose 88 163 H (74-99) mg/dL Calcium 8.3 L 8.4 (8.4-10.2) mg/dL AST 84 H (14-36) U/L ALT 42 (9-52) U/L Alkaline Phosphatase <20 L (38-126) U/L Total Protein 5.3 L (6.3-8.2) g/dL Albumin 3.5 (3.5-5.0) g/dL 06/14/18 Range/Units 04:17 Sodium 136 L (137-145) mmol/L Potassium 4.4 (3.5-5.1) mmol/L Chloride 104 (98-107) mmol/L Carbon Dioxide 25 (22-30) mmol/L BUN 13 (7-17) mg/dL Creatinine 0.58 (0.52-1.04) mg/dL Glucose 129 H (74-99) mg/dL Calcium 8.6 (8.4-10.2) mg/dL AST 123 H (14-36) U/L ALT 62 H (9-52) U/L Alkaline Phosphatase 31 L (38-126) U/L Total Protein 5.4 L (6.3-8.2) g/dL Albumin 3.4 L (3.5-5.0) g/dL Current Medications Generic Name Dose Route Start Last Admin Trade Name Freq PRN Reason Stop Dose Admin Albuterol/Ipratropium 3 ml 06/13/18 14:45 Duoneb 0.5 Mg-3 Mg/3 Ml Soln INHALATION RT-Q2H PRN Shortness Of Breath Or Wheezing Albuterol/Ipratropium 3 ml 06/14/18 08:00 Duoneb 0.5 Mg-3 Mg/3 Ml Soln INHALATION RT-QID [facility] Aspirin 325 mg 06/14/18 09:00 Aspirin PO DAILY [facility] Atorvastatin Calcium 40 mg 06/14/18 09:00 Lipitor PO DAILY [facility] Benzocaine/Menthol 1 each 06/13/18 14:45 Cepacol Lozenge MUCOUS MEM Q2H PRN Sore Throat Bisacodyl 10 mg 06/14/18 14:18 Dulcolax RECTAL DAILY PRN Constipation Cefazolin Sodium 2 gm 06/13/18 16:00 06/13/18 23:42 Kefzol IVP 06/14/18 08:01 2 gm Q8HR [facility] Administration Chlorhexidine Gluconate 15 ml 06/13/18 21:00 06/13/18 21:40 Peridex MUCOUS MEM Not Given BID [facility] Clopidogrel Bisulfate 75 mg 06/14/18 09:00 Plavix PO DAILY [facility] Heparin Sodium (Porcine) 5,000 unit 06/13/18 22:00 06/14/18 05:26 Heparin SQ 5,000 unit Q8H [facility] Administration Acetaminophen 1,000 mg/ IV 100 mls @ 400 mls/hr 06/13/18 18:00 06/14/18 05:26 Solution IVPB 06/14/18 18:01 400 mls/hr Q6HR [facility] Administration Albumin Human 250 ml/ IV 250 mls @ 250 mls/hr 06/13/18 14:45 Solution IVPB 06/15/18 14:46 Q1HR PRN For Volume Amiodarone HCl 150 mg/ 103 mls @ 618 mls/hr 06/13/18 14:45 Dextrose/Water IV .Q10M PRN Per protocol Protocol Amiodarone HCl 450 mg/ 259 mls @ 34.53 mls/hr 06/13/18 14:45 Dextrose/Water IV .Q7H31M PRN Per Protocol Protocol 1 MG/MIN Calcium Chloride 1,000 mg/ 110 mls @ 100 mls/hr 06/13/18 14:45 Sodium Chloride IV 06/20/18 14:46 ONCE PRN Ionized Calcium less than 4.4 Clevidipine 25 mg/ IV Solution 50 mls @ 2 mls/hr 06/13/18 14:45 06/13/18 23: 44 IV 3 mg/hr .Q24H [facility] 6 mls/hr Titration Protocol 1 MG/HR Lactated Ringer's 1,000 mls @ 50 mls/hr 06/13/18 14:45 06/13/18 16:27 Lactated Ringers IV 50 mls/hr .Q20H [facility] Administration Nitroglycerin/Dextrose 50 mg/ 250 mls @ 1.5 mls/hr 06/13/18 14:45 06/13/18 15 :30 IV Solution IV 5 mcg/min .Q24H [facility] 1.5 mls/hr Administration 5 MCG/MIN Propofol 1,000 mg/ IV Solution 100 mls @ 0 mls/hr 06/13/18 14:45 06/13/18 18: 00 IV 0 mcg/kg/min .Q0M [facility] 0 mls/hr Titration Protocol Titrate Insulin Human Regular 100 unit 101 mls @ 0 mls/hr 06/13/18 16:45 06/14/18 04: 05 / Sodium Chloride IV 2 units/hr .Q0M [facility] 2.02 mls/hr Titration Protocol Per Protocol Insulin Human Regular 10.8 unit 06/13/18 16:37 Humulin R Bolus From Bag 0.1 unit/kg (10.8 unit) 06/20/18 16:38 IV ONCE PRN Blood Sugar - High Magnesium Hydroxide 2,400 mg 06/14/18 14:18 Milk Of Magnesia PO BID PRN Constipation Metoclopramide HCl 10 mg 06/13/18 14:45 Reglan IVP Q4H PRN Nausea And Vomiting Metoprolol Tartrate 12.5 mg 06/14/18 09:00 Lopressor PO BID [facility] Miscellaneous Information 1 each 06/13/18 14:45 Magnesium Per Protocol MISCELLANE DAILY PRN Per Protocol Protocol Miscellaneous Information 1 each 06/13/18 14:45 Phosphorus Per Protocol MISCELLANE DAILY PRN Per Protocol Protocol Miscellaneous Information 1 each 06/13/18 14:45 Potassium Per Protocol MISCELLANE DAILY PRN Per Protocol Protocol Mupirocin 1 applic 06/13/18 21:00 06/13/18 22:15 Bactroban Oint NASAL 06/16/18 21:01 1 applic BID [facility] Administration Ondansetron HCl 4 mg 06/13/18 14:45 Zofran IVP Q6HR PRN Nausea And Vomiting Oxycodone HCl 10 mg 06/13/18 14:45 06/14/18 04:38 Oxyir PO 06/14/18 14:46 10 mg Q4H PRN Administration Severe Pain Oxycodone HCl 5 mg 06/13/18 14:45 Oxyir PO 06/14/18 14:46 Q4H PRN Moderate Pain Pantoprazole Sodium 40 mg 06/14/18 09:00 Protonix IVP DAILY [facility] Senna/Docusate Sodium 2 each 06/14/18 21:00 Senokot-S PO HS [facility] Sodium Chloride 10 ml 06/13/18 21:00 06/13/18 21:40 Saline Flush IV 10 ml BID [facility] Administration Tramadol HCl 50 mg 06/14/18 12:00 Ultram PO Q6HR PRN Pain Intake and Output 06/13/18 06/14/18 06/14/18 22:59 06:59 14:59 Intake Total 365.931 0623.833 Output Total 1261 1560 Balance -580.811 -41.167 Intake: IV 457 503 Co/CI 30 90 Lactated Ringers 1,000 ml 400 350 @ 50 mls/hr IV .Q20H [facility] Rx#:[id number] pressure bag 27 63 Intake, IV Titration 223.189 140.833 Amount ACETAMINOPHEN IV (For NPO 100 100 ) 1,000 mg In Empty Bag 1 bag @ 400 mls/hr IVPB Q6HR [facility] Rx#:[id number] Clevidipine Butyrate 25 70.167 27.333 mg In Empty Bag 1 bag @ 1 MG/HR 2 mls/hr IV .Q24H [facility] Rx#:[id number] Insulin Regular 100 unit 12.576 13.500 In Sodium Chloride 0.9% 100 ml @ Per Protocol IV .Q0M [facility] Rx#:[id number] Propofol 1,000 mg In 40.446 Empty Bag 1 bag @ Titrate IV .Q0M [facility] Rx#: [id number] Oral 875 Output: Chest Tube Drainage 356 170 Chest Tube Right Pleural/ 356 170 Mediastinal Gastric Drainage 50 Urine 855 1390 Other: Voiding Method Indwelling Catheter Indwelling Catheter Weight 108 kg 108.5 kg 06/14/18 04:17 06/14/18 04:17 Assessment and Plan Assessment: Assessment #1 status post aortic valve replacement using bioprosthetic valve #2 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
[2018-06-14] MEDS ORDERED: MAGNESIUM SULFATE-D5W PMX 1 GM in DEXTROSE/WATER 1 100ML.BAG IVPB ONE (07:24)
[2018-06-14] MEDS ORDERED: FUROSEMIDE 10 MG/ML 2 ML VIAL IV ONE (08:36)
--- NOTE | 2018-06-14 08:46 | XR ---
EXAMINATION TYPE: XR chest 1V portable DATE OF EXAM: 06/14/2018 COMPARISON: 06/13/2018 HISTORY: Shortness of breath. Status post cardiac surgery. TECHNIQUE: Single frontal view of the chest is obtained. FINDINGS: There is blunting of the left costophrenic angle relating to trace pleural effusion and pablo bsegmental linear bibasilar atelectasis. Cardiac silhouette is again enlarged with postoperative sotomayor ges the chest including median sternotomy wires, closure device and prosthetic cardiac valve. Mediast inal drain, left upper abdominal surgical clips, epicardial pacing wires, and Bahama-Messi catheter are similar to the prior. Right-sided thoracostomy tube is also unchanged with no residual pneumothorax i dentified. No new focal consolidation. Interval extubation. IMPRESSION: 1. Removal of the enteric tube. Otherwise stable lines, tubes and postoperative change. 2. Trace left pleural effusion and bibasilar linear subsegmental atelectasis.
--- NOTE | 2018-06-14 08:48 | P.PN ---
Subjective Progress Note Date: 06/14/18 Principal diagnosis: severe aortic valve stenosis. Two vessel coronary artery disease.history of hypertension, hyperlipidemia, previous tobacco dependence, mild COPD with preoperative FEV1 63% of predicted, obesity. POD #1 aortic valve replacement with a #23 mm Inspiris [place] bioprosthetic aortic valve. Coronary bypass grafting 2 with reverse saphenous vein graft off the aorta to the first obtuse marginal artery and the right coronary artery with left lower extremity greater saphenous vein endoscopic harvesting. Clip ligation of the left atrial appendage with a #35 mm AtriClip and intraoperative HANNAH. The patient is currently sitting up in a recliner in no acute distress. She was successfully extubated last night at 21:05. She remains hemodynamically stable on no inotropes or pressors. Does complain of sternal incision pain as well as pain at her right chest tube site which is tolerable with current pain medication regimen. Denies shortness of breath. No new concerns. Objective - Vital Signs Vital signs: Vital Signs Temp 99.0 F 06/14/18 04:00 Pulse 80 06/14/18 07:00 Resp 20 06/14/18 07:00 BP 101/70 06/14/18 07:00 Pulse Ox 98 06/14/18 07:00 Intake & Output 06/13/18 06/14/18 06/14/18 18:59 06:59 18:59 Intake Total 970.656 6301.242 159 Output Total 2186 2070 125 Balance -1742.348 -220.758 34 Weight 108 kg 108.5 kg Intake: IV 231 819 59 Co/CI 120 Lactated Ringers 1,000 ml 200 600 50 @ 50 mls/hr IV .Q20H [facility] Rx#:[id number] pressure bag 99 9 Intake, IV Titration 212.652 155.242 100 Amount ACETAMINOPHEN IV (For NPO 100 100 ) 1,000 mg In Empty Bag 1 bag @ 400 mls/hr IVPB Q6HR [facility] Rx#:[id number] Albumin Human 5% 250 ml 100 In Empty Bag 1 bag @ 250 mls/hr IVPB Q1HR PRN Rx#: [id number] Clevidipine Butyrate 25 70.167 27.333 mg In Empty Bag 1 bag @ 1 MG/HR 2 mls/hr IV .Q24H [facility] Rx#:[id number] Insulin Regular 100 unit 2.039 27.909 In Sodium Chloride 0.9% 100 ml @ Per Protocol IV .Q0M [facility] Rx#:[id number] Propofol 1,000 mg In 40.446 Empty Bag 1 bag @ Titrate IV .Q0M [facility] Rx#: [id number] Oral 875 Output: Chest Tube Drainage 206 320 90 Chest Tube Right Pleural/ 206 320 90 Mediastinal Gastric Drainage 50 Urine 980 1700 35 Estimated Blood Loss 1000 Other: Voiding Method Indwelling Catheter Indwelling Catheter ABP, PAP, CO, CI - Last Documented Arterial Blood Pressure 106/57 Pulmonary Artery Pressure 28/15 Cardiac Output 5.7 Cardiac Index 2.8 - Constitutional General appearance: Present: cooperative, no acute distress, obese - Respiratory Details: Lungs sounds diminished bilaterally. Respirations even, nonlabored. Currently on 2 L nasal cannula with oxygen saturation 99%. Able to achieve 500 mL on her incentive spirometry. Weak cough. Mediastinal/right pleural chest tube to continuous wall suction, 170 mL serosanguineous drainage overnight, 670 mL since surgery, positive intermittent air leak present. - Cardiovascular Details: S1, S2 present. Regular rate and rhythm, sinus rhythm on telemetry. Sternum stable. Palpable peripheral pulses bilaterally. No edema present. No calf pain or tenderness noted. Right internal jugular Byron/Cordis, right radial arterial line present. Last CO/CI 5.7/2.8 on no inotropes. Heart hugger in place with patient demonstrating appropriate use. Antiembolism stockings, SCDs present. - Gastrointestinal Gastrointestinal Comment(s): abdomen soft, nontender, nondistended. Hypoactive bowel sounds present 4 quadrants. Tolerating clear liquids. Negative flatus. - Genitourinary Genitourinary Comment(s): Villegas present draining clear, yellow urine. Output overnight 75-245 mL per hour , 1390 mL in the last 8 hours. - Integumentary Integumentary Comment(s): Skin is warm and dry with evidence of good perfusion. Anterior chest incision well approximated and covered with dry intact dressing. Left lower extremity EVH site well approximated. - Neurologic Neurologic: Present: CNII-XII intact - Musculoskeletal Musculoskeletal: Present: strength equal bilaterally - Psychiatric Psychiatric: Present: A&O x's 3, appropriate affect, intact judgment & insight - Allied health notes Allied health notes reviewed: nursing - Labs CBC & Chem 7: 06/14/18 04:17 06/14/18 04:17 Labs: Abnormal Lab Results - Last 24 Hours (Table) 06/07/18 06/13/18 06/13/18 Range/Units 09:00 10:23 11:20 WBC (3.8-10.6) k/uL RBC (3.80-5.40) m/uL Hgb (11.4-16.0) gm/dL Hct (34.0-46.0) % Plt Count (150-450) k/uL Neutrophils # (1.3-7.7) k/uL Lymphocytes # (1.0-4.8) k/uL INR (<1.2) APTT (22.0-30.0) sec ABG pH (7.35-7.45) ABG pCO2 (35-45) mmHg ABG pO2 >420 H >420 H (83-108) mmHg ABG HCO3 27 H (21-25) mmol/L ABG Total CO2 28 H 26 H (19-24) mmol/L ABG O2 Saturation 100.0 H 100.0 H (94-97) % ABG Glucose 103 H 111 H (75-99) mg/dL Hemoglobin 11.1 L (11.4-16.0) gm/dL Sodium (137-145) mmol/L Chloride (98-107) mmol/L Glucose (74-99) mg/dL POC Glucose (mg/dL) (75-99) mg/dL Calcium (8.4-10.2) mg/dL Magnesium (1.6-2.3) mg/dL AST (14-36) U/L ALT (9-52) U/L Alkaline Phosphatase (38-126) U/L Total Protein (6.3-8.2) g/dL Albumin (3.5-5.0) g/dL Arterial Blood Glucose 103 H 111 H (75-99) mg/dL Crossmatch See Detail 06/13/18 06/13/18 06/13/18 Range/Units 14:45 14:45 15:15 WBC 11.6 H (3.8-10.6) k/uL RBC 3.01 L (3.80-5.40) m/uL Hgb 9.3 L D (11.4-16.0) gm/dL Hct 27.7 L (34.0-46.0) % Plt Count 125 L D (150-450) k/uL Neutrophils # 9.8 H (1.3-7.7) k/uL Lymphocytes # (1.0-4.8) k/uL INR 1.2 H (<1.2) APTT 32.4 H (22.0-30.0) sec ABG pH (7.35-7.45) ABG pCO2 (35-45) mmHg ABG pO2 (83-108) mmHg ABG HCO3 (21-25) mmol/L ABG Total CO2 (19-24) mmol/L ABG O2 Saturation (94-97) % ABG Glucose (75-99) mg/dL Hemoglobin (11.4-16.0) gm/dL Sodium (137-145) mmol/L Chloride 108 H (98-107) mmol/L Glucose (74-99) mg/dL POC Glucose (mg/dL) (75-99) mg/dL Calcium 8.3 L (8.4-10.2) mg/dL Magnesium 2.5 H (1.6-2.3) mg/dL AST 84 H (14-36) U/L ALT (9-52) U/L Alkaline Phosphatase <20 L (38-126) U/L Total Protein 5.3 L (6.3-8.2) g/dL Albumin (3.5-5.0) g/dL Arterial Blood Glucose (75-99) mg/dL Crossmatch 06/13/18 06/13/18 06/13/18 Range/Units 15:50 16:36 17:20 WBC (3.8-10.6) k/uL RBC (3.80-5.40) m/uL Hgb (11.4-16.0) gm/dL Hct (34.0-46.0) % Plt Count (150-450) k/uL Neutrophils # (1.3-7.7) k/uL Lymphocytes # (1.0-4.8) k/uL INR (<1.2) APTT (22.0-30.0) sec ABG pH 7.24 L (7.35-7.45) ABG pCO2 59 H (35-45) mmHg ABG pO2 179 H (83-108) mmHg ABG HCO3 (21-25) mmol/L ABG Total CO2 27 H (19-24) mmol/L ABG O2 Saturation 99.1 H (94-97) % ABG Glucose (75-99) mg/dL Hemoglobin (11.4-16.0) gm/dL Sodium (137-145) mmol/L Chloride (98-107) mmol/L Glucose (74-99) mg/dL POC Glucose (mg/dL) 144 H 134 H (75-99) mg/dL Calcium (8.4-10.2) mg/dL Magnesium (1.6-2.3) mg/dL AST (14-36) U/L ALT (9-52) U/L Alkaline Phosphatase (38-126) U/L Total Protein (6.3-8.2) g/dL Albumin (3.5-5.0) g/dL Arterial Blood Glucose (75-99) mg/dL Crossmatch 06/13/18 06/13/18 06/13/18 Range/Units 18:10 18:14 18:15 WBC 15.5 H (3.8-10.6) k/uL RBC 3.49 L (3.80-5.40) m/uL Hgb 11.2 L (11.4-16.0) gm/dL Hct 32.8 L (34.0-46.0) % Plt Count (150-450) k/uL Neutrophils # 14.1 H (1.3-7.7) k/uL Lymphocytes # 0.7 L (1.0-4.8) k/uL INR (<1.2) APTT (22.0-30.0) sec ABG pH (7.35-7.45) ABG pCO2 (35-45) mmHg ABG pO2 (83-108) mmHg ABG HCO3 (21-25) mmol/L ABG Total CO2 (19-24) mmol/L ABG O2 Saturation (94-97) % ABG Glucose (75-99) mg/dL Hemoglobin (11.4-16.0) gm/dL Sodium (137-145) mmol/L Chloride (98-107) mmol/L Glucose 163 H (74-99) mg/dL POC Glucose (mg/dL) 173 H (75-99) mg/dL Calcium (8.4-10.2) mg/dL Magnesium (1.6-2.3) mg/dL AST (14-36) U/L ALT (9-52) U/L Alkaline Phosphatase (38-126) U/L Total Protein (6.3-8.2) g/dL Albumin (3.5-5.0) g/dL Arterial Blood Glucose (75-99) mg/dL Crossmatch 06/13/18 06/13/18 06/13/18 Range/Units 19:03 20:07 20:33 WBC 16.6 H (3.8-10.6) k/uL RBC 3.41 L (3.80-5.40) m/uL Hgb 10.4 L (11.4-16.0) gm/dL Hct 31.7 L (34.0-46.0) % Plt Count 148 L (150-450) k/uL Neutrophils # 15.5 H (1.3-7.7) k/uL Lymphocytes # 0.4 L (1.0-4.8) k/uL INR (<1.2) APTT (22.0-30.0) sec ABG pH (7.35-7.45) ABG pCO2 (35-45) mmHg ABG pO2 (83-108) mmHg ABG HCO3 (21-25) mmol/L ABG Total CO2 (19-24) mmol/L ABG O2 Saturation (94-97) % ABG Glucose (75-99) mg/dL Hemoglobin (11.4-16.0) gm/dL Sodium (137-145) mmol/L Chloride (98-107) mmol/L Glucose (74-99) mg/dL POC Glucose (mg/dL) 163 H 157 H (75-99) mg/dL Calcium (8.4-10.2) mg/dL Magnesium (1.6-2.3) mg/dL AST (14-36) U/L ALT (9-52) U/L Alkaline Phosphatase (38-126) U/L Total Protein (6.3-8.2) g/dL Albumin (3.5-5.0) g/dL Arterial Blood Glucose (75-99) mg/dL Crossmatch 06/13/18 06/13/18 06/13/18 Range/Units 20:40 21:16 22:13 WBC (3.8-10.6) k/uL RBC (3.80-5.40) m/uL Hgb (11.4-16.0) gm/dL Hct (34.0-46.0) % Plt Count (150-450) k/uL Neutrophils # (1.3-7.7) k/uL Lymphocytes # (1.0-4.8) k/uL INR (<1.2) APTT (22.0-30.0) sec ABG pH 7.30 L (7.35-7.45) ABG pCO2 47 H (35-45) mmHg ABG pO2 78 L (83-108) mmHg ABG HCO3 (21-25) mmol/L ABG Total CO2 (19-24) mmol/L ABG O2 Saturation (94-97) % ABG Glucose (75-99) mg/dL Hemoglobin (11.4-16.0) gm/dL Sodium (137-145) mmol/L Chloride (98-107) mmol/L Glucose (74-99) mg/dL POC Glucose (mg/dL) 155 H 157 H (75-99) mg/dL Calcium (8.4-10.2) mg/dL Magnesium (1.6-2.3) mg/dL AST (14-36) U/L ALT (9-52) U/L Alkaline Phosphatase (38-126) U/L Total Protein (6.3-8.2) g/dL Albumin (3.5-5.0) g/dL Arterial Blood Glucose (75-99) mg/dL Crossmatch 06/13/18 06/13/18 06/14/18 Range/Units 23:17 23:49 01:08 WBC (3.8-10.6) k/uL RBC (3.80-5.40) m/uL Hgb (11.4-16.0) gm/dL Hct (34.0-46.0) % Plt Count (150-450) k/uL Neutrophils # (1.3-7.7) k/uL Lymphocytes # (1.0-4.8) k/uL INR (<1.2) APTT (22.0-30.0) sec ABG pH (7.35-7.45) ABG pCO2 (35-45) mmHg ABG pO2 (83-108) mmHg ABG HCO3 (21-25) mmol/L ABG Total CO2 (19-24) mmol/L ABG O2 Saturation (94-97) % ABG Glucose (75-99) mg/dL Hemoglobin (11.4-16.0) gm/dL Sodium (137-145) mmol/L Chloride (98-107) mmol/L Glucose (74-99) mg/dL POC Glucose (mg/dL) 147 H 146 H 141 H (75-99) mg/dL Calcium (8.4-10.2) mg/dL Magnesium (1.6-2.3) mg/dL AST (14-36) U/L ALT (9-52) U/L Alkaline Phosphatase (38-126) U/L Total Protein (6.3-8.2) g/dL Albumin (3.5-5.0) g/dL Arterial Blood Glucose (75-99) mg/dL Crossmatch 06/14/18 06/14/18 06/14/18 Range/Units 03:12 04:09 04:17 WBC 19.0 H (3.8-10.6) k/uL RBC 3.48 L (3.80-5.40) m/uL Hgb 10.8 L (11.4-16.0) gm/dL Hct 32.3 L (34.0-46.0) % Plt Count 140 L (150-450) k/uL Neutrophils # 17.8 H (1.3-7.7) k/uL Lymphocytes # 0.2 L (1.0-4.8) k/uL INR (<1.2) APTT (22.0-30.0) sec ABG pH (7.35-7.45) ABG pCO2 (35-45) mmHg ABG pO2 (83-108) mmHg ABG HCO3 (21-25) mmol/L ABG Total CO2 (19-24) mmol/L ABG O2 Saturation (94-97) % ABG Glucose (75-99) mg/dL Hemoglobin (11.4-16.0) gm/dL Sodium (137-145) mmol/L Chloride (98-107) mmol/L Glucose (74-99) mg/dL POC Glucose (mg/dL) 105 H 140 H (75-99) mg/dL Calcium (8.4-10.2) mg/dL Magnesium (1.6-2.3) mg/dL AST (14-36) U/L ALT (9-52) U/L Alkaline Phosphatase (38-126) U/L Total Protein (6.3-8.2) g/dL Albumin (3.5-5.0) g/dL Arterial Blood Glucose (75-99) mg/dL Crossmatch 06/14/18 06/14/18 06/14/18 Range/Units 04:17 04:17 05:02 WBC (3.8-10.6) k/uL RBC (3.80-5.40) m/uL Hgb (11.4-16.0) gm/dL Hct (34.0-46.0) % Plt Count (150-450) k/uL Neutrophils # (1.3-7.7) k/uL Lymphocytes # (1.0-4.8) k/uL INR 1.2 H (<1.2) APTT (22.0-30.0) sec ABG pH (7.35-7.45) ABG pCO2 (35-45) mmHg ABG pO2 (83-108) mmHg ABG HCO3 (21-25) mmol/L ABG Total CO2 (19-24) mmol/L ABG O2 Saturation (94-97) % ABG Glucose (75-99) mg/dL Hemoglobin (11.4-16.0) gm/dL Sodium 136 L (137-145) mmol/L Chloride (98-107) mmol/L Glucose 129 H (74-99) mg/dL POC Glucose (mg/dL) 140 H (75-99) mg/dL Calcium (8.4-10.2) mg/dL Magnesium (1.6-2.3) mg/dL AST 123 H (14-36) U/L ALT 62 H (9-52) U/L Alkaline Phosphatase 31 L (38-126) U/L Total Protein 5.4 L (6.3-8.2) g/dL Albumin 3.4 L (3.5-5.0) g/dL Arterial Blood Glucose (75-99) mg/dL Crossmatch 10/18/18 Range/Units 07:02 WBC (3.8-10.6) k/uL RBC (3.80-5.40) m/uL Hgb (11.4-16.0) gm/dL Hct (34.0-46.0) % Plt Count (150-450) k/uL Neutrophils # (1.3-7.7) k/uL Lymphocytes # (1.0-4.8) k/uL INR (<1.2) APTT (22.0-30.0) sec ABG pH (7.35-7.45) ABG pCO2 (35-45) mmHg ABG pO2 (83-108) mmHg ABG HCO3 (21-25) mmol/L ABG Total CO2 (19-24) mmol/L ABG O2 Saturation (94-97) % ABG Glucose (75-99) mg/dL Hemoglobin (11.4-16.0) gm/dL Sodium (137-145) mmol/L Chloride (98-107) mmol/L Glucose (74-99) mg/dL POC Glucose (mg/dL) 134 H (75-99) mg/dL Calcium (8.4-10.2) mg/dL Magnesium (1.6-2.3) mg/dL AST (14-36) U/L ALT (9-52) U/L Alkaline Phosphatase (38-126) U/L Total Protein (6.3-8.2) g/dL Albumin (3.5-5.0) g/dL Arterial Blood Glucose (75-99) mg/dL Crossmatch - Imaging and Cardiology Chest x-ray: image reviewed Assessment and Plan (1) Severe aortic stenosis Current Visit: Yes Status: Chronic Code(s): I35.0 - NONRHEUMATIC AORTIC ( VALVE) STENOSIS SNOMED Code(s): 85549131 (2) Hypertension Current Visit: Yes Status: Chronic Code(s): I10 - ESSENTIAL (PRIMARY) HYPERTENSION SNOMED Code(s): 14839356 (3) Hyperlipidemia Current Visit: Yes Status: Chronic Code(s): E78.5 - HYPERLIPIDEMIA, UNSPECIFIED SNOMED Code(s): 72824404 (4) Tobacco dependence in remission Current Visit: No Status: Resolved Code(s): F17.201 - NICOTINE DEPENDENCE, UNSPECIFIED, IN REMISSION SNOMED Code(s): 951331439 (5) COPD (chronic obstructive pulmonary disease) Current Visit: Yes Status: Chronic Code(s): J44.9 - CHRONIC OBSTRUCTIVE PULMONARY DISEASE, UNSPECIFIED SNOMED Code(s): 65170516 (6) Obesity Current Visit: Yes Status: Chronic Code(s): E66.9 - OBESITY, UNSPECIFIED SNOMED Code(s): 364690998 (7) CAD (coronary artery disease) Current Visit: Yes Status: Chronic Code(s): I25.10 - ATHSCL HEART DISEASE OF [place] CORONARY ARTERY W/O ANG PCTRS SNOMED Code(s): 02752551 Plan: 1. Continue aspirin, statin, Plavix, beta francis. Will increase beta francis therapy as tolerated. 2. Wean O2 as tolerated. Encourage incentive spirometry use 10 times every hour while awake. 3. Bronchodilators per pulmonology. 4. Will give Lasix 20 mg IV push 1 today. 5. Increase activity, ambulate in room. PT/OT/cardiac rehab following. 6. Will follow daily labs and chest x-rays. 7. Insulin management per primary care service. 8. Pain controlled with current medication regimen. Toradol added. 9. GI prophylaxis with Protonix. DVT prophylaxis with subcu heparin, SCDs. 10. Discontinue Byron-Messi catheter. Connect Cordis to continuous CVP monitoring. 11. Will add home medications. 12. More recommendations to follow. Time with Patient: Greater than 30
[2018-06-14 08:52] LABS: Glucose,Whole Blood 148 mg/dL (75-99)
[2018-06-14] MEDS: KETOROLAC 30 MG/ML 1 ML VIAL IVP SCH ×3 (08:54→17:12)
[2018-06-14] MEDS ORDERED: PANTOPRAZOLE 40 MG/10 ML VIAL IVP SCH (09:00)
[2018-06-14] MEDS ORDERED: METOPROLOL TARTRATE 12.5 MG TAB PO SCH (09:00)
[2018-06-14] MEDS: IPRATROPIUM-ALBUTEROL 3 ML NEB INHALATION SCH ×4 (09:16→20:38)
[2018-06-14] MEDS: CLOPIDOGREL 75 MG TAB PO SCH (09:19)
[2018-06-14] MEDS: ASPIRIN 325 MG TAB PO SCH (09:19)
[2018-06-14] MEDS: ATORVASTATIN 40 MG TAB PO SCH (09:19)
[2018-06-14] MEDS: CHLORHEXIDINE GLUCONATE 15 ML CUP MUCOUS MEM SCH (09:20)
[2018-06-14] MEDS: MUPIROCIN 2% OINT 22 GM TUBE NASAL SCH ×2 (09:20→21:45)
--- NOTE | 2018-06-14 09:21 | P.PN ---
Subjective Progress Note Date: 06/14/18 Principal diagnosis: Status post two-vessel bypass and aortic valve replacement Progress note dated 06/14/2018 72-year-old female, postop day #1 status post aortic valve replacement for severe aortic stenosis and two-vessel bypass grafting. The patient surgery was done by Dr. Jimenez. The patient was extubated just outside the 6 hour window. Currently, she is on a couple liters of oxygen. She's doing relatively well. Chest x-ray shows some mild fluid overload and cardiothoracic we'll probably give her some additional Lasix. The surgeon give her 20 mg of Lasix last night. She has a history of hyperlipidemia hypertension and DJD. She also has a history of obesity. She's doing relatively well. Her catheterization revealed a 70% proximal circumflex lesion and 95% proximal RCA lesion. She's awake and alert. She sitting up in a chair. I did tell her to work hard on incentive spirometry. White count is 19. Hemoglobin 10.8, hematocrit 32.3 and platelet count was normal at 140,000. Sodium 136 potassium 4.4 chloride 104 CO2 25 BUN 13 and creatinine was 0.58. Objective - Vital Signs Vital signs: Vital Signs Temp 99.0 F 06/14/18 04:00 Pulse 80 06/14/18 07:00 Resp 20 06/14/18 07:00 BP 101/70 06/14/18 07:00 Pulse Ox 98 06/14/18 07:00 Intake & Output 06/13/18 06/14/18 06/14/18 18:59 06:59 18:59 Intake Total 548.689 2710.242 162.976 Output Total 2186 2070 125 Balance -1742.348 -220.758 37.976 Weight 108 kg 108.5 kg Intake: IV 231 819 59 Co/CI 120 Lactated Ringers 1,000 ml 200 600 50 @ 50 mls/hr IV .Q20H [facility] Rx#:[id number] pressure bag 99 9 Intake, IV Titration 212.652 155.242 103.976 Amount ACETAMINOPHEN IV (For NPO 100 100 ) 1,000 mg In Empty Bag 1 bag @ 400 mls/hr IVPB Q6HR [facility] Rx#:[id number] Albumin Human 5% 250 ml 100 In Empty Bag 1 bag @ 250 mls/hr IVPB Q1HR PRN Rx#: [id number] Clevidipine Butyrate 25 70.167 27.333 mg In Empty Bag 1 bag @ 1 MG/HR 2 mls/hr IV .Q24H [facility] Rx#:[id number] Insulin Regular 100 unit 2.039 27.909 3.976 In Sodium Chloride 0.9% 100 ml @ Per Protocol IV .Q0M [facility] Rx#:[id number] Propofol 1,000 mg In 40.446 Empty Bag 1 bag @ Titrate IV .Q0M [facility] Rx#: [id number] Oral 875 Output: Chest Tube Drainage 206 320 90 Chest Tube Right Pleural/ 206 320 90 Mediastinal Gastric Drainage 50 Urine 980 1700 35 Estimated Blood Loss 1000 Other: Voiding Method Indwelling Catheter Indwelling Catheter ABP, PAP, CO, CI - Last Documented Arterial Blood Pressure 106/57 Pulmonary Artery Pressure 28/15 Cardiac Output 5.7 Cardiac Index 2.8 - Exam No acute distress, oriented 3. Nasal O2 in place. HEENT examination is grossly unremarkable. Mucous membranes are moist. No oral lesions. Neck supple. Full range of motion. No adenopathy thyromegaly or neck vein distention. Cardiovascular examination reveals regular rhythm rate. S1-S2 normal. No S3 or S4. No discernible murmur noted. Heart sounds are distant. Lungs reveal mostly clear breath sounds. Her sounds are equal bilaterally. There are a few scattered rhonchi. No wheezes or crackles. Breath sounds are diminished throughout. Abdomen soft bowel sounds are heard. No masses or tenderness. Extremities are intact. No cyanosis clubbing or edema. Skin is without rash or lesion. Neurologic examination is brief but nonfocal. - Labs CBC & Chem 7: 06/14/18 04:17 06/14/18 04:17 Labs: Abnormal Lab Results - Last 24 Hours (Table) 06/07/18 06/13/18 06/13/18 Range/Units 09:00 10:23 11:20 WBC (3.8-10.6) k/uL RBC (3.80-5.40) m/uL Hgb (11.4-16.0) gm/dL Hct (34.0-46.0) % Plt Count (150-450) k/uL Neutrophils # (1.3-7.7) k/uL Lymphocytes # (1.0-4.8) k/uL INR (<1.2) APTT (22.0-30.0) sec ABG pH (7.35-7.45) ABG pCO2 (35-45) mmHg ABG pO2 >420 H >420 H (83-108) mmHg ABG HCO3 27 H (21-25) mmol/L ABG Total CO2 28 H 26 H (19-24) mmol/L ABG O2 Saturation 100.0 H 100.0 H (94-97) % ABG Glucose 103 H 111 H (75-99) mg/dL Hemoglobin 11.1 L (11.4-16.0) gm/dL Sodium (137-145) mmol/L Chloride (98-107) mmol/L Glucose (74-99) mg/dL POC Glucose (mg/dL) (75-99) mg/dL Calcium (8.4-10.2) mg/dL Magnesium (1.6-2.3) mg/dL AST (14-36) U/L ALT (9-52) U/L Alkaline Phosphatase (38-126) U/L Total Protein (6.3-8.2) g/dL Albumin (3.5-5.0) g/dL Arterial Blood Glucose 103 H 111 H (75-99) mg/dL Crossmatch See Detail 06/13/18 06/13/18 06/13/18 Range/Units 14:45 14:45 15:15 WBC 11.6 H (3.8-10.6) k/uL RBC 3.01 L (3.80-5.40) m/uL Hgb 9.3 L D (11.4-16.0) gm/dL Hct 27.7 L (34.0-46.0) % Plt Count 125 L D (150-450) k/uL Neutrophils # 9.8 H (1.3-7.7) k/uL Lymphocytes # (1.0-4.8) k/uL INR 1.2 H (<1.2) APTT 32.4 H (22.0-30.0) sec ABG pH (7.35-7.45) ABG pCO2 (35-45) mmHg ABG pO2 (83-108) mmHg ABG HCO3 (21-25) mmol/L ABG Total CO2 (19-24) mmol/L ABG O2 Saturation (94-97) % ABG Glucose (75-99) mg/dL Hemoglobin (11.4-16.0) gm/dL Sodium (137-145) mmol/L Chloride 108 H (98-107) mmol/L Glucose (74-99) mg/dL POC Glucose (mg/dL) (75-99) mg/dL Calcium 8.3 L (8.4-10.2) mg/dL Magnesium 2.5 H (1.6-2.3) mg/dL AST 84 H (14-36) U/L ALT (9-52) U/L Alkaline Phosphatase <20 L (38-126) U/L Total Protein 5.3 L (6.3-8.2) g/dL Albumin (3.5-5.0) g/dL Arterial Blood Glucose (75-99) mg/dL Crossmatch 06/13/18 06/13/18 06/13/18 Range/Units 15:50 16:36 17:20 WBC (3.8-10.6) k/uL RBC (3.80-5.40) m/uL Hgb (11.4-16.0) gm/dL Hct (34.0-46.0) % Plt Count (150-450) k/uL Neutrophils # (1.3-7.7) k/uL Lymphocytes # (1.0-4.8) k/uL INR (<1.2) APTT (22.0-30.0) sec ABG pH 7.24 L (7.35-7.45) ABG pCO2 59 H (35-45) mmHg ABG pO2 179 H (83-108) mmHg ABG HCO3 (21-25) mmol/L ABG Total CO2 27 H (19-24) mmol/L ABG O2 Saturation 99.1 H (94-97) % ABG Glucose (75-99) mg/dL Hemoglobin (11.4-16.0) gm/dL Sodium (137-145) mmol/L Chloride (98-107) mmol/L Glucose (74-99) mg/dL POC Glucose (mg/dL) 144 H 134 H (75-99) mg/dL Calcium (8.4-10.2) mg/dL Magnesium (1.6-2.3) mg/dL AST (14-36) U/L ALT (9-52) U/L Alkaline Phosphatase (38-126) U/L Total Protein (6.3-8.2) g/dL Albumin (3.5-5.0) g/dL Arterial Blood Glucose (75-99) mg/dL Crossmatch 06/13/18 06/13/18 06/13/18 Range/Units 18:10 18:14 18:15 WBC 15.5 H (3.8-10.6) k/uL RBC 3.49 L (3.80-5.40) m/uL Hgb 11.2 L (11.4-16.0) gm/dL Hct 32.8 L (34.0-46.0) % Plt Count (150-450) k/uL Neutrophils # 14.1 H (1.3-7.7) k/uL Lymphocytes # 0.7 L (1.0-4.8) k/uL INR (<1.2) APTT (22.0-30.0) sec ABG pH (7.35-7.45) ABG pCO2 (35-45) mmHg ABG pO2 (83-108) mmHg ABG HCO3 (21-25) mmol/L ABG Total CO2 (19-24) mmol/L ABG O2 Saturation (94-97) % ABG Glucose (75-99) mg/dL Hemoglobin (11.4-16.0) gm/dL Sodium (137-145) mmol/L Chloride (98-107) mmol/L Glucose 163 H (74-99) mg/dL POC Glucose (mg/dL) 173 H (75-99) mg/dL Calcium (8.4-10.2) mg/dL Magnesium (1.6-2.3) mg/dL AST (14-36) U/L ALT (9-52) U/L Alkaline Phosphatase (38-126) U/L Total Protein (6.3-8.2) g/dL Albumin (3.5-5.0) g/dL Arterial Blood Glucose (75-99) mg/dL Crossmatch 06/13/18 06/13/18 06/13/18 Range/Units 19:03 20:07 20:33 WBC 16.6 H (3.8-10.6) k/uL RBC 3.41 L (3.80-5.40) m/uL Hgb 10.4 L (11.4-16.0) gm/dL Hct 31.7 L (34.0-46.0) % Plt Count 148 L (150-450) k/uL Neutrophils # 15.5 H (1.3-7.7) k/uL Lymphocytes # 0.4 L (1.0-4.8) k/uL INR (<1.2) APTT (22.0-30.0) sec ABG pH (7.35-7.45) ABG pCO2 (35-45) mmHg ABG pO2 (83-108) mmHg ABG HCO3 (21-25) mmol/L ABG Total CO2 (19-24) mmol/L ABG O2 Saturation (94-97) % ABG Glucose (75-99) mg/dL Hemoglobin (11.4-16.0) gm/dL Sodium (137-145) mmol/L Chloride (98-107) mmol/L Glucose (74-99) mg/dL POC Glucose (mg/dL) 163 H 157 H (75-99) mg/dL Calcium (8.4-10.2) mg/dL Magnesium (1.6-2.3) mg/dL AST (14-36) U/L ALT (9-52) U/L Alkaline Phosphatase (38-126) U/L Total Protein (6.3-8.2) g/dL Albumin (3.5-5.0) g/dL Arterial Blood Glucose (75-99) mg/dL Crossmatch 06/13/18 06/13/18 06/13/18 Range/Units 20:40 21:16 22:13 WBC (3.8-10.6) k/uL RBC (3.80-5.40) m/uL Hgb (11.4-16.0) gm/dL Hct (34.0-46.0) % Plt Count (150-450) k/uL Neutrophils # (1.3-7.7) k/uL Lymphocytes # (1.0-4.8) k/uL INR (<1.2) APTT (22.0-30.0) sec ABG pH 7.30 L (7.35-7.45) ABG pCO2 47 H (35-45) mmHg ABG pO2 78 L (83-108) mmHg ABG HCO3 (21-25) mmol/L ABG Total CO2 (19-24) mmol/L ABG O2 Saturation (94-97) % ABG Glucose (75-99) mg/dL Hemoglobin (11.4-16.0) gm/dL Sodium (137-145) mmol/L Chloride (98-107) mmol/L Glucose (74-99) mg/dL POC Glucose (mg/dL) 155 H 157 H (75-99) mg/dL Calcium (8.4-10.2) mg/dL Magnesium (1.6-2.3) mg/dL AST (14-36) U/L ALT (9-52) U/L Alkaline Phosphatase (38-126) U/L Total Protein (6.3-8.2) g/dL Albumin (3.5-5.0) g/dL Arterial Blood Glucose (75-99) mg/dL Crossmatch 06/13/18 06/13/18 06/14/18 Range/Units 23:17 23:49 01:08 WBC (3.8-10.6) k/uL RBC (3.80-5.40) m/uL Hgb (11.4-16.0) gm/dL Hct (34.0-46.0) % Plt Count (150-450) k/uL Neutrophils # (1.3-7.7) k/uL Lymphocytes # (1.0-4.8) k/uL INR (<1.2) APTT (22.0-30.0) sec ABG pH (7.35-7.45) ABG pCO2 (35-45) mmHg ABG pO2 (83-108) mmHg ABG HCO3 (21-25) mmol/L ABG Total CO2 (19-24) mmol/L ABG O2 Saturation (94-97) % ABG Glucose (75-99) mg/dL Hemoglobin (11.4-16.0) gm/dL Sodium (137-145) mmol/L Chloride (98-107) mmol/L Glucose (74-99) mg/dL POC Glucose (mg/dL) 147 H 146 H 141 H (75-99) mg/dL Calcium (8.4-10.2) mg/dL Magnesium (1.6-2.3) mg/dL AST (14-36) U/L ALT (9-52) U/L Alkaline Phosphatase (38-126) U/L Total Protein (6.3-8.2) g/dL Albumin (3.5-5.0) g/dL Arterial Blood Glucose (75-99) mg/dL Crossmatch 06/14/18 06/14/18 06/14/18 Range/Units 03:12 04:09 04:17 WBC 19.0 H (3.8-10.6) k/uL RBC 3.48 L (3.80-5.40) m/uL Hgb 10.8 L (11.4-16.0) gm/dL Hct 32.3 L (34.0-46.0) % Plt Count 140 L (150-450) k/uL Neutrophils # 17.8 H (1.3-7.7) k/uL Lymphocytes # 0.2 L (1.0-4.8) k/uL INR (<1.2) APTT (22.0-30.0) sec ABG pH (7.35-7.45) ABG pCO2 (35-45) mmHg ABG pO2 (83-108) mmHg ABG HCO3 (21-25) mmol/L ABG Total CO2 (19-24) mmol/L ABG O2 Saturation (94-97) % ABG Glucose (75-99) mg/dL Hemoglobin (11.4-16.0) gm/dL Sodium (137-145) mmol/L Chloride (98-107) mmol/L Glucose (74-99) mg/dL POC Glucose (mg/dL) 105 H 140 H (75-99) mg/dL Calcium (8.4-10.2) mg/dL Magnesium (1.6-2.3) mg/dL AST (14-36) U/L ALT (9-52) U/L Alkaline Phosphatase (38-126) U/L Total Protein (6.3-8.2) g/dL Albumin (3.5-5.0) g/dL Arterial Blood Glucose (75-99) mg/dL Crossmatch 06/14/18 06/14/18 06/14/18 Range/Units 04:17 04:17 05:02 WBC (3.8-10.6) k/uL RBC (3.80-5.40) m/uL Hgb (11.4-16.0) gm/dL Hct (34.0-46.0) % Plt Count (150-450) k/uL Neutrophils # (1.3-7.7) k/uL Lymphocytes # (1.0-4.8) k/uL INR 1.2 H (<1.2) APTT (22.0-30.0) sec ABG pH (7.35-7.45) ABG pCO2 (35-45) mmHg ABG pO2 (83-108) mmHg ABG HCO3 (21-25) mmol/L ABG Total CO2 (19-24) mmol/L ABG O2 Saturation (94-97) % ABG Glucose (75-99) mg/dL Hemoglobin (11.4-16.0) gm/dL Sodium 136 L (137-145) mmol/L Chloride (98-107) mmol/L Glucose 129 H (74-99) mg/dL POC Glucose (mg/dL) 140 H (75-99) mg/dL Calcium (8.4-10.2) mg/dL Magnesium (1.6-2.3) mg/dL AST 123 H (14-36) U/L ALT 62 H (9-52) U/L Alkaline Phosphatase 31 L (38-126) U/L Total Protein 5.4 L (6.3-8.2) g/dL Albumin 3.4 L (3.5-5.0) g/dL Arterial Blood Glucose (75-99) mg/dL Crossmatch 06/14/18 06/14/18 Range/Units 07:02 08:16 WBC (3.8-10.6) k/uL RBC (3.80-5.40) m/uL Hgb (11.4-16.0) gm/dL Hct (34.0-46.0) % Plt Count (150-450) k/uL Neutrophils # (1.3-7.7) k/uL Lymphocytes # (1.0-4.8) k/uL INR (<1.2) APTT (22.0-30.0) sec ABG pH (7.35-7.45) ABG pCO2 (35-45) mmHg ABG pO2 (83-108) mmHg ABG HCO3 (21-25) mmol/L ABG Total CO2 (19-24) mmol/L ABG O2 Saturation (94-97) % ABG Glucose (75-99) mg/dL Hemoglobin (11.4-16.0) gm/dL Sodium (137-145) mmol/L Chloride (98-107) mmol/L Glucose (74-99) mg/dL POC Glucose (mg/dL) 134 H 148 H (75-99) mg/dL Calcium (8.4-10.2) mg/dL Magnesium (1.6-2.3) mg/dL AST (14-36) U/L ALT (9-52) U/L Alkaline Phosphatase (38-126) U/L Total Protein (6.3-8.2) g/dL Albumin (3.5-5.0) g/dL Arterial Blood Glucose (75-99) mg/dL Crossmatch Assessment and Plan Assessment: Assessment Postop day #1, status post three-vessel bypass grafting and aortic valve replacement for severe aortic stenosis Routine postoperative ventilator management Obesity History of hypertension History of hyperlipidemia Vitamin D deficiency Previous history of tobacco use Plan: Plan dated 06/13/2018 The patient's blood gases will be evaluated and adjusted accordingly. The patient should be placed on DuoNeb every 4 hours [id number]. We'll await the chest x-ray. We'll continue to follow the patient closely and hopefully get the patient extubated within the 6 hour window or sooner. The patient appears to be relatively stable this time. The patient's on the SIMV mode. Additional recommendations and suggestions are forthcoming. Prognosis is guarded. We will continue to follow closely. Blood gases done in the OR show a PaO2 of fluid within 420 a PaCO2 of 39 and a pH of 7.41. No additional labs are back yet and the chest x-ray is currently pending. Plan dated 06/14/2018 Medications labs and x-rays are all reviewed. I did pass on the cardiothoracic that I thought the patient's chest x-ray showed some excess fluid. She would probably benefit from some IV Lasix. She is stable hemodynamically. She was extubated within the 6 hour window or close to it. Labs are reviewed and all looked good. I did encourage her to do deep breathing coughing and clearing of secretions. We also recommend that she use incentive spirometer every hour while awake. Additional recommendations and suggestions are forthcoming. Prognosis is guarded. Critical care time 32 minutes Time with Patient: Greater than 30
[2018-06-14 09:34] LABS: Glucose,Whole Blood 172 mg/dL (75-99)
[2018-06-14] MEDS ORDERED: METOPROLOL TARTRATE 12.5 MG TAB PO STA (10:12)
[2018-06-14 10:14] LABS: Glucose,Whole Blood 180 mg/dL (75-99)
[2018-06-14 10:33] VITALS: BMI 43.7
[2018-06-14] MEDS: ceFAZolin IN SWFI 2 GM/20 ML SYRINGE IVP SCH (11:27)
[2018-06-14 11:46] LABS: Glucose,Whole Blood 125 mg/dL (75-99)
[2018-06-14] MEDS: CYANOCOBALAMIN 500 MCG TAB PO SCH (11:48)
[2018-06-14] MEDS: MULTIVITAMINS, THERA 1 EACH TAB PO SCH (11:49)
[2018-06-14] MEDS: CHOLECALCIFEROL 1,000 UNIT TAB PO SCH (11:50)
[2018-06-14 12:15] LABS: Glucose,Whole Blood 113 mg/dL (75-99)
[2018-06-14] MEDS: LACTATED RINGERS 1,000 ML IV SCH (12:36)
[2018-06-14 13:07] LABS: Glucose,Whole Blood 141 mg/dL (75-99)
[2018-06-14 13:55] LABS: Glucose,Whole Blood 190 mg/dL (75-99)
[2018-06-14] MEDS ORDERED: BISACODYL 10 MG SUPP RECTAL PRN (14:18)
[2018-06-14] MEDS ORDERED: MAGNESIUM HYDROXIDE 2,400 MG/10 ML CUP PO PRN (14:18)
[2018-06-14 15:07] LABS: Glucose,Whole Blood 153 mg/dL (75-99)
[2018-06-14 16:15] LABS: Glucose,Whole Blood 112 mg/dL (75-99)
[2018-06-14 17:32] LABS: Glucose,Whole Blood 106 mg/dL (75-99)
[2018-06-14] MEDS: INSULIN REGULAR 100 UNIT in SODIUM CHLORIDE 0.9% 100 ML IV ONE ×2 (17:45→21:14)
[2018-06-14 18:36] LABS: Glucose,Whole Blood 141 mg/dL (75-99)
[2018-06-14 19:06] LABS: Glucose,Whole Blood 154 mg/dL (75-99)
[2018-06-14 20:02] LABS: Glucose,Whole Blood 166 mg/dL (75-99)
[2018-06-14] MEDS: SENNOSIDES-DOCUSATE SODIUM 1 EACH TAB PO SCH (20:17)
[2018-06-14] MEDS: METOPROLOL TARTRATE 25 MG TAB PO SCH (20:18)
[2018-06-14 21:35] LABS: Glucose,Whole Blood 135 mg/dL (75-99)
--- NOTE | 2018-06-14 22:29 | P.CONS ---
History of Present Illness - History of Present Illness This is a pleasant 72 years old female with past medical history of hypertension hyperlipidemia, digestive joint disease. Cholecystectomy. With history of severe aortic stenosis and coronary artery disease. He presents because of progressive dyspnea. She is status post 2 vessel bypass grafting with aortic valve replacement. She got intubated currently and managed with the intensive care unit specialist on the case. We've been consulted for medical management. Review of Systems CONSTITUTIONAL: No fever, no malaise, no fatigue. HEENT: No recent visual problems or hearing problems. Denied any sore throat. CARDIOVASCULAR: No orthopnea, PND, no palpitations, no syncope. PULMONARY: No shortness of breath, no cough, no hemoptysis. GASTROINTESTINAL: No diarrhea, no nausea, no vomiting, no abdominal pain. Normoactive bowel sounds. NEUROLOGICAL: No headaches, no weakness, no numbness. HEMATOLOGICAL: Denies any bleeding or petechiae. GENITOURINARY: Denies any burning micturition, frequency, or urgency. MUSCULOSKELETAL/RHEUMATOLOGICAL: Denies any joint pain, swelling, or any muscle pain. ENDOCRINE: Denies any polyuria or polydipsia. Past Medical History Past Medical History: Hyperlipidemia, Hypertension, Osteoarthritis (OA) Additional Past Medical History / Comment(s): SOB,angel lower ext edema,states heart murmur,hx rectal bleed History of Any Multi-Drug Resistant Organisms: None Reported Past Surgical History: Section, Cholecystectomy, Hernia Repair, Joint Replacement, Orthopedic Surgery Additional Past Surgical History / Comment(s): 07/25/16 total R hip arthroplasty anterior approach. Other surgical hx: Right (?) knee sx for chipped bone as 8 yr old child, colonoscopy,egd,angel carpel tunnel Past Anesthesia/Blood Transfusion Reactions: No Reported Reaction Additional Past Anesthesia/Blood Transfusion Reaction / Comm: no hx blood transfusion Smoking Status: Former smoker - Past Family History Son(s) Family Medical History: Cancer Additional Family Medical History / Comment(s): leukemia Mother Family Medical History: No Reported History Additional Family Medical History / Comment(s): Mother was healthy and lived to be 92yrs old. Father Family Medical History: No Reported History Additional Family Medical History / Comment(s): Father lived to be 85 yrs old. Medications and Allergies Home Medications Medication Instructions Recorded Confirmed Type Benazepril [Lotensin] 10 mg PO DAILY 07/19/16 06/13/18 History Pravastatin Sodium [Pravachol] 20 mg PO DAILY 07/19/16 06/13/18 History Aspirin 81 mg PO DAILY 12/14/16 06/13/18 History Cholecalciferol [Vitamin D3] 5,000 unit PO DAILY 04/27/18 06/13/18 History Cyanocobalamin (Vitamin B-12) 2,500 mcg PO DAILY 04/27/18 06/13/18 History [Vitamin B-12] Multivit-Min/Iron/Folic/Lutein 1 tab PO DAILY 06/07/18 06/13/18 History [Centrum Silver Women Tablet] Allergies Allergy/AdvReac Type Severity Reaction Status Date / Time hydrocodone [From Lortab] Allergy Rash/Hives Verified 06/13/18 15:01 Sulfa (Sulfonamide Allergy Rash/Hives Verified 06/13/18 15:01 Antibiotics) Physical Exam Vitals: Vital Signs Temp Pulse Pulse Resp BP BP BP 06/13/18 16:00 84 108/67 06/13/18 15:45 77 108/67 06/13/18 15:30 74 06/13/18 15:21 71 06/13/18 14:45 06/13/18 06:58 96.2 F L 84 16 162/77 145/73 Pulse Ox 06/13/18 16:00 100 06/13/18 15:45 100 06/13/18 15:30 100 06/13/18 15:21 100 06/13/18 14:45 100 06/13/18 06:58 95 Intake and Output 06/13/18 06/13/18 06/13/18 06:59 14:59 22:59 Intake Total 31 147.977 Output Total 1400 614 Balance -1369 -466.023 Intake: IV 31 100 Lactated Ringers 1,000 ml 100 @ 50 mls/hr IV .Q20H [facility] Rx#:[id number] Intake, IV Titration 47.977 Amount Clevidipine Butyrate 25 20.167 mg In Empty Bag 1 bag @ 1 MG/HR 2 mls/hr IV .Q24H [facility] Rx#:[id number] Propofol 1,000 mg In 27.81 Empty Bag 1 bag @ Titrate IV .Q0M [facility] Rx#: [id number] Output: Chest Tube Drainage 144 Chest Tube Right Pleural/ 144 Mediastinal Urine 400 470 Estimated Blood Loss 1000 Other: Weight 108 kg ABP, PAP, CO, CI - Last 8 Hours Arterial Blood Pressure 143/60 Arterial Blood Pressure 130/58 Arterial Blood Pressure 166/86 Arterial Blood Pressure 145/77 Pulmonary Artery Pressure 48/29 Pulmonary Artery Pressure 47/29 Pulmonary Artery Pressure 50/31 Pulmonary Artery Pressure 49/30 Cardiac Output 4.4 Cardiac Output 4.4 Cardiac Output 4.4 Cardiac Output 3.9 Cardiac Index 3.4 Cardiac Index 2.2 Cardiac Index 2.0 GENERAL: The patient is alert and oriented x3, not in any acute distress. Well developed, well nourished. HEENT: Pupils are round and equally reacting to light. EOMI. No scleral icterus. No conjunctival pallor. Normocephalic, atraumatic. No pharyngeal erythema. No thyromegaly. CARDIOVASCULAR: S1 and S2 present. No murmurs, rubs, or gallops. PULMONARY: Chest is clear to auscultation, no wheezing or crackles. ABDOMEN: Soft, nontender, nondistended, normoactive bowel sounds. No palpable organomegaly. MUSCULOSKELETAL: No joint swelling or deformity. EXTREMITIES: No cyanosis, clubbing, or pedal edema. NEUROLOGICAL: Gross neurological examination did not reveal any focal deficits. SKIN: No rashes. Results CBC & Chem 7: 06/13/18 15:15 06/13/18 14:45 Labs: Abnormal Lab Results - Last 24 Hours (Table) 06/07/18 06/13/18 06/13/18 Range/Units 09:00 10:23 11:20 WBC (3.8-10.6) k/uL RBC (3.80-5.40) m/uL Hgb (11.4-16.0) gm/dL Hct (34.0-46.0) % Plt Count (150-450) k/uL Neutrophils # (1.3-7.7) k/uL INR (<1.2) APTT (22.0-30.0) sec ABG pH (7.35-7.45) ABG pCO2 (35-45) mmHg ABG pO2 >420 H >420 H (83-108) mmHg ABG HCO3 27 H (21-25) mmol/L ABG Total CO2 28 H 26 H (19-24) mmol/L ABG O2 Saturation 100.0 H 100.0 H (94-97) % ABG Glucose 103 H 111 H (75-99) mg/dL Hemoglobin 11.1 L (11.4-16.0) gm/dL Chloride (98-107) mmol/L POC Glucose (mg/dL) (75-99) mg/dL Calcium (8.4-10.2) mg/dL Magnesium (1.6-2.3) mg/dL AST (14-36) U/L Alkaline Phosphatase (38-126) U/L Total Protein (6.3-8.2) g/dL Arterial Blood Glucose 103 H 111 H (75-99) mg/dL Crossmatch See Detail 06/13/18 06/13/18 06/13/18 Range/Units 14:45 14:45 15:15 WBC 11.6 H (3.8-10.6) k/uL RBC 3.01 L (3.80-5.40) m/uL Hgb 9.3 L D (11.4-16.0) gm/dL Hct 27.7 L (34.0-46.0) % Plt Count 125 L D (150-450) k/uL Neutrophils # 9.8 H (1.3-7.7) k/uL INR 1.2 H (<1.2) APTT 32.4 H (22.0-30.0) sec ABG pH (7.35-7.45) ABG pCO2 (35-45) mmHg ABG pO2 (83-108) mmHg ABG HCO3 (21-25) mmol/L ABG Total CO2 (19-24) mmol/L ABG O2 Saturation (94-97) % ABG Glucose (75-99) mg/dL Hemoglobin (11.4-16.0) gm/dL Chloride 108 H (98-107) mmol/L POC Glucose (mg/dL) (75-99) mg/dL Calcium 8.3 L (8.4-10.2) mg/dL Magnesium 2.5 H (1.6-2.3) mg/dL AST 84 H (14-36) U/L Alkaline Phosphatase <20 L (38-126) U/L Total Protein 5.3 L (6.3-8.2) g/dL Arterial Blood Glucose (75-99) mg/dL Crossmatch 06/13/18 06/13/18 Range/Units 15:50 16:36 WBC (3.8-10.6) k/uL RBC (3.80-5.40) m/uL Hgb (11.4-16.0) gm/dL Hct (34.0-46.0) % Plt Count (150-450) k/uL Neutrophils # (1.3-7.7) k/uL INR (<1.2) APTT (22.0-30.0) sec ABG pH 7.24 L (7.35-7.45) ABG pCO2 59 H (35-45) mmHg ABG pO2 179 H (83-108) mmHg ABG HCO3 (21-25) mmol/L ABG Total CO2 27 H (19-24) mmol/L ABG O2 Saturation 99.1 H (94-97) % ABG Glucose (75-99) mg/dL Hemoglobin (11.4-16.0) gm/dL Chloride (98-107) mmol/L POC Glucose (mg/dL) 144 H (75-99) mg/dL Calcium (8.4-10.2) mg/dL Magnesium (1.6-2.3) mg/dL AST (14-36) U/L Alkaline Phosphatase (38-126) U/L Total Protein (6.3-8.2) g/dL Arterial Blood Glucose (75-99) mg/dL Crossmatch Assessment and Plan Assessment: Severe aortic stenosis, with two-vessel coronary artery disease status post bypass grafting and aortic valve replacement Status post intubation, she is on vent management by the critical care unit team Essential hypertension Hyperlipidemia History of degenerative joint disease. Plan: This is a 72 years female who presents for aortic valve replacement and CABG. Labs and medication refills. Continue with the same treatment. Continue symptomatic treatment. Resume home medication. Monitor lytes and vitals. GI and DVT prophylaxis. The management as per critical care team. Further recommendations based on the clinical course of the patient
--- NOTE | 2018-06-14 22:41 | P.PN ---
Subjective This is a pleasant 72 years old female with past medical history of hypertension hyperlipidemia, digestive joint disease. Cholecystectomy. With history of severe aortic stenosis and coronary artery disease. He presents because of progressive dyspnea. She is status post 2 vessel bypass grafting with aortic valve replacement. She got intubated currently and managed with the intensive care unit specialist on the case. We've been consulted for medical management. 06/14/2018 pt is s/p aortic valve replacement, and CABG , she is seen in the ICU today , s/ p extubation . she is multiple medications including asprin and plavix, lipitor. pt is been treated for constipation too. on insulin drip . sugar controlled. wbc 19 K. liver enz is mildly elevated and needs to be followed up. Objective - Vital Signs Vital signs: Vital Signs Temp 98.8 F 06/14/18 16:00 Pulse 85 06/14/18 21:00 Resp 20 06/14/18 21:00 BP 133/73 06/14/18 21:00 Pulse Ox 99 06/14/18 21:00 Intake & Output 06/14/18 06/14/18 06/15/18 06:59 18:59 06:59 Intake Total 2670.399 1082.417 87.067 Output Total 2070 1053 255 Balance -220.758 246.417 -167.933 Weight 108.5 kg 108.5 kg Intake: IV 819 563 74 0.9 pressure bag 99 93 12 Co/CI 120 80 Lactated Ringers 1,000 ml 600 390 62 @ 20 mls/hr IV .Q24H [facility] Rx#:[id number] Intake, IV Titration 155.242 236.417 13.067 Amount ACETAMINOPHEN IV (For NPO 100 ) 1,000 mg In Empty Bag 1 bag @ 400 mls/hr IVPB Q6HR [facility] Rx#:[id number] Albumin Human 5% 250 ml 100 In Empty Bag 1 bag @ 250 mls/hr IVPB Q1HR PRN Rx#: [id number] Clevidipine Butyrate 25 27.333 mg In Empty Bag 1 bag @ 1 MG/HR 2 mls/hr IV .Q24H [facility] Rx#:[id number] Insulin Regular 100 unit 27.909 36.417 13.067 In Sodium Chloride 0.9% 100 ml @ Per Protocol IV .Q0M [facility] Rx#:[id number] Magnesium Sulfate-D5w Pmx 100 1 gm In Dextrose/Water 1 100ml.bag @ 100 mls/hr IVPB ONCE ONE Rx#: [id number] Oral 875 500 Output: Chest Tube Drainage 320 450 80 Chest Tube Right Pleural/ 320 450 80 Mediastinal Gastric Drainage 50 Urine 1700 603 175 Other: Voiding Method Indwelling Catheter Indwelling Catheter ABP, PAP, CO, CI - Last Documented Arterial Blood Pressure 137/55 Pulmonary Artery Pressure 32/16 Cardiac Output 5 Cardiac Index 2.3 - Exam GENERAL: The patient is alert and oriented x3, not in any acute distress. Well developed, well nourished. HEENT: Pupils are round and equally reacting to light. EOMI. No scleral icterus. No conjunctival pallor. Normocephalic, atraumatic. No pharyngeal erythema. No thyromegaly. -CARDIOVASCULAR: S1 and S2 present. No murmurs, rubs, or gallops. incision site is clean and healing PULMONARY: Chest is clear to auscultation, no wheezing or crackles. ABDOMEN: Soft, nontender, nondistended, normoactive bowel sounds. No palpable organomegaly. MUSCULOSKELETAL: No joint swelling or deformity. EXTREMITIES: No cyanosis, clubbing, or pedal edema. NEUROLOGICAL: Gross neurological examination did not reveal any focal deficits. SKIN: No rashes. - Labs CBC & Chem 7: 06/14/18 04:17 06/14/18 04:17 Labs: Abnormal Lab Results - Last 24 Hours (Table) 06/07/18 06/13/18 06/13/18 Range/Units 09:00 22:13 23:17 WBC (3.8-10.6) k/uL RBC (3.80-5.40) m/uL Hgb (11.4-16.0) gm/dL Hct (34.0-46.0) % Plt Count (150-450) k/uL Neutrophils # (1.3-7.7) k/uL Lymphocytes # (1.0-4.8) k/uL INR (<1.2) Sodium (137-145) mmol/L Glucose (74-99) mg/dL POC Glucose (mg/dL) 157 H 147 H (75-99) mg/dL AST (14-36) U/L ALT (9-52) U/L Alkaline Phosphatase (38-126) U/L Total Protein (6.3-8.2) g/dL Albumin (3.5-5.0) g/dL Crossmatch See Detail 06/13/18 06/14/18 06/14/18 Range/Units 23:49 01:08 03:12 WBC (3.8-10.6) k/uL RBC (3.80-5.40) m/uL Hgb (11.4-16.0) gm/dL Hct (34.0-46.0) % Plt Count (150-450) k/uL Neutrophils # (1.3-7.7) k/uL Lymphocytes # (1.0-4.8) k/uL INR (<1.2) Sodium (137-145) mmol/L Glucose (74-99) mg/dL POC Glucose (mg/dL) 146 H 141 H 105 H (75-99) mg/dL AST (14-36) U/L ALT (9-52) U/L Alkaline Phosphatase (38-126) U/L Total Protein (6.3-8.2) g/dL Albumin (3.5-5.0) g/dL Crossmatch 06/14/18 06/14/18 06/14/18 Range/Units 04:09 04:17 04:17 WBC 19.0 H (3.8-10.6) k/uL RBC 3.48 L (3.80-5.40) m/uL Hgb 10.8 L (11.4-16.0) gm/dL Hct 32.3 L (34.0-46.0) % Plt Count 140 L (150-450) k/uL Neutrophils # 17.8 H (1.3-7.7) k/uL Lymphocytes # 0.2 L (1.0-4.8) k/uL INR 1.2 H (<1.2) Sodium (137-145) mmol/L Glucose (74-99) mg/dL POC Glucose (mg/dL) 140 H (75-99) mg/dL AST (14-36) U/L ALT (9-52) U/L Alkaline Phosphatase (38-126) U/L Total Protein (6.3-8.2) g/dL Albumin (3.5-5.0) g/dL Crossmatch 06/14/18 06/14/18 06/14/18 Range/Units 04:17 05:02 07:02 WBC (3.8-10.6) k/uL RBC (3.80-5.40) m/uL Hgb (11.4-16.0) gm/dL Hct (34.0-46.0) % Plt Count (150-450) k/uL Neutrophils # (1.3-7.7) k/uL Lymphocytes # (1.0-4.8) k/uL INR (<1.2) Sodium 136 L (137-145) mmol/L Glucose 129 H (74-99) mg/dL POC Glucose (mg/dL) 140 H 134 H (75-99) mg/dL AST 123 H (14-36) U/L ALT 62 H (9-52) U/L Alkaline Phosphatase 31 L (38-126) U/L Total Protein 5.4 L (6.3-8.2) g/dL Albumin 3.4 L (3.5-5.0) g/dL Crossmatch 06/14/18 06/14/18 06/14/18 Range/Units 08:16 09:27 10:09 WBC (3.8-10.6) k/uL RBC (3.80-5.40) m/uL Hgb (11.4-16.0) gm/dL Hct (34.0-46.0) % Plt Count (150-450) k/uL Neutrophils # (1.3-7.7) k/uL Lymphocytes # (1.0-4.8) k/uL INR (<1.2) Sodium (137-145) mmol/L Glucose (74-99) mg/dL POC Glucose (mg/dL) 148 H 172 H 180 H (75-99) mg/dL AST (14-36) U/L ALT (9-52) U/L Alkaline Phosphatase (38-126) U/L Total Protein (6.3-8.2) g/dL Albumin (3.5-5.0) g/dL Crossmatch 06/14/18 06/14/18 06/14/18 Range/Units 11:38 12:12 13:03 WBC (3.8-10.6) k/uL RBC (3.80-5.40) m/uL Hgb (11.4-16.0) gm/dL Hct (34.0-46.0) % Plt Count (150-450) k/uL Neutrophils # (1.3-7.7) k/uL Lymphocytes # (1.0-4.8) k/uL INR (<1.2) Sodium (137-145) mmol/L Glucose (74-99) mg/dL POC Glucose (mg/dL) 125 H 113 H 141 H (75-99) mg/dL AST (14-36) U/L ALT (9-52) U/L Alkaline Phosphatase (38-126) U/L Total Protein (6.3-8.2) g/dL Albumin (3.5-5.0) g/dL Crossmatch 06/14/18 06/14/18 06/14/18 Range/Units 13:52 15:04 16:00 WBC (3.8-10.6) k/uL RBC (3.80-5.40) m/uL Hgb (11.4-16.0) gm/dL Hct (34.0-46.0) % Plt Count (150-450) k/uL Neutrophils # (1.3-7.7) k/uL Lymphocytes # (1.0-4.8) k/uL INR (<1.2) Sodium (137-145) mmol/L Glucose (74-99) mg/dL POC Glucose (mg/dL) 190 H 153 H 112 H (75-99) mg/dL AST (14-36) U/L ALT (9-52) U/L Alkaline Phosphatase (38-126) U/L Total Protein (6.3-8.2) g/dL Albumin (3.5-5.0) g/dL Crossmatch 06/14/18 06/14/18 06/14/18 Range/Units 17:15 18:21 18:51 WBC (3.8-10.6) k/uL RBC (3.80-5.40) m/uL Hgb (11.4-16.0) gm/dL Hct (34.0-46.0) % Plt Count (150-450) k/uL Neutrophils # (1.3-7.7) k/uL Lymphocytes # (1.0-4.8) k/uL INR (<1.2) Sodium (137-145) mmol/L Glucose (74-99) mg/dL POC Glucose (mg/dL) 106 H 141 H 154 H (75-99) mg/dL AST (14-36) U/L ALT (9-52) U/L Alkaline Phosphatase (38-126) U/L Total Protein (6.3-8.2) g/dL Albumin (3.5-5.0) g/dL Crossmatch 06/14/18 06/14/18 Range/Units 19:59 21:09 WBC (3.8-10.6) k/uL RBC (3.80-5.40) m/uL Hgb (11.4-16.0) gm/dL Hct (34.0-46.0) % Plt Count (150-450) k/uL Neutrophils # (1.3-7.7) k/uL Lymphocytes # (1.0-4.8) k/uL INR (<1.2) Sodium (137-145) mmol/L Glucose (74-99) mg/dL POC Glucose (mg/dL) 166 H 135 H (75-99) mg/dL AST (14-36) U/L ALT (9-52) U/L Alkaline Phosphatase (38-126) U/L Total Protein (6.3-8.2) g/dL Albumin (3.5-5.0) g/dL Crossmatch Assessment and Plan Assessment: Severe aortic stenosis, with two-vessel coronary artery disease status post bypass grafting and aortic valve replacement Status post intubation, she is on vent management by the critical care unit team. got extubated on 06/14/18 Essential hypertension Hyperlipidemia History of degenerative joint disease. Plan: This is a 72 years female who presents for aortic valve replacement and CABG. Labs and medication refills. Continue with the same treatment. Continue symptomatic treatment. Resume home medication. Monitor lytes and vitals. GI and DVT prophylaxis. The management as per critical care team. Further recommendations based on the clinical course of the patient
[2018-06-14 22:49] LABS: Glucose,Whole Blood 113 mg/dL (75-99)
[2018-06-14 23:20] LABS: Glucose,Whole Blood 111 mg/dL (75-99)
[2018-06-15] MEDS: KETOROLAC 30 MG/ML 1 ML VIAL IVP SCH ×5 (00:21→23:35)
[2018-06-15 00:28] LABS: Glucose,Whole Blood 122 mg/dL (75-99)
[2018-06-15 02:10] LABS: Glucose,Whole Blood 127 mg/dL (75-99)
[2018-06-15] MEDS: traMADol 50 MG TAB PO PRN ×2 (03:41→08:46)
[2018-06-15 03:53] LABS: Glucose,Whole Blood 120 mg/dL (75-99)
[2018-06-15 04:35] LABS: Glucose,Whole Blood 114 mg/dL (75-99)
[2018-06-15 04:46] LABS: Basophils % (A) 0 %; Eosinophils # (A) 0.3 k/uL (0-0.7); Eosinophils % (A) 2 %; HCT 31.8 % (34.0-46.0); HGB 10.6 gm/dL (11.4-16.0); Lymphocytes # (A) 1.2 k/uL (1.0-4.8); Lymphocytes % (A) 7 %; MCH 30.6 pg (25.0-35.0); MCHC 33.3 g/dL (31.0-37.0); MCV 91.9 fL (80.0-100.0); Monocytes # (A) 0.6 k/uL (0-1.0); Monocytes % (A) 4 %; Neutrophils # (A) 15.2 k/uL (1.3-7.7); Neutrophils % (A) 87 %; Platelet Count 129 k/uL (150-450); RBC 3.46 m/uL (3.80-5.40); RDW 13.4 % (11.5-15.5); WBC 17.5 k/uL (3.8-10.6)
[2018-06-15 04:53] LABS: Ionized Calcium 5.3 mg/dL (4.5-5.3)
[2018-06-15 05:03] LABS: ALT 60 U/L (9-52); AST 87 U/L (14-36); Albumin 3.3 g/dL (3.5-5.0); Alkaline Phosphatase 54 U/L (38-126); Anion Gap 8 mmol/L; Blood Urea Nitrogen 20 mg/dL (7-17); Calcium 9.4 mg/dL (8.4-10.2); Carbon Dioxide 25 mmol/L (22-30); Chloride 100 mmol/L (98-107); Glucose 112 mg/dL (74-99); Magnesium 2.4 mg/dL (1.6-2.3); Potassium 4.5 mmol/L (3.5-5.1); Sodium 133 mmol/L (137-145); Total Protein 5.5 g/dL (6.3-8.2)
[2018-06-15 05:32] LABS: Glucose,Whole Blood 131 mg/dL (75-99)
[2018-06-15 06:56] LABS: Glucose,Whole Blood 134 mg/dL (75-99)
--- NOTE | 2018-06-15 07:24 | P.PN ---
Subjective Progress Note Date: 06/15/18 Principal diagnosis: Status post two-vessel bypass and aortic valve replacement Progress note dated 06/14/2018 72-year-old female, postop day #1 status post aortic valve replacement for severe aortic stenosis and two-vessel bypass grafting. The patient surgery was done by Dr. Jimenez. The patient was extubated just outside the 6 hour window. Currently, she is on a couple liters of oxygen. She's doing relatively well. Chest x-ray shows some mild fluid overload and cardiothoracic we'll probably give her some additional Lasix. The surgeon give her 20 mg of Lasix last night. She has a history of hyperlipidemia hypertension and DJD. She also has a history of obesity. She's doing relatively well. Her catheterization revealed a 70% proximal circumflex lesion and 95% proximal RCA lesion. She's awake and alert. She sitting up in a chair. I did tell her to work hard on incentive spirometry. White count is 19. Hemoglobin 10.8, hematocrit 32.3 and platelet count was normal at 140,000. Sodium 136 potassium 4.4 chloride 104 CO2 25 BUN 13 and creatinine was 0.58. Progress note dated 06/15/2018 72-year-old female, postop day #2, status post aortic valve replacement for severe aortic stenosis and two-vessel bypass grafting. The patient is doing well. She was extubated within the 6 hour window. Currently, she is on O2 2 L by nasal cannula and lactated Ringer's IV at 20 mL an hour as well as an insulin drip at 3 units an hour. She's feeling about 750 mL on her incentive spirometer is sitting up in the chair. He looks reasonably well. She is having pain at the surgical site but short of that, she has no other major complaints. Chest x-rays consistent with small bilateral pleural effusions postoperative changes and some very minimal basilar atelectasis. Objective - Vital Signs Vital signs: Vital Signs Temp 98.4 F 06/15/18 04:00 Pulse 80 06/15/18 07:00 Resp 21 06/15/18 07:00 BP 138/70 06/15/18 07:00 Pulse Ox 97 06/15/18 07:00 Intake & Output 06/14/18 06/15/18 06/15/18 18:59 06:59 18:59 Intake Total 1299.417 312.139 23 Output Total 1053 885 65 Balance 246.417 -572.861 -42 Weight 108.5 kg 106.3 kg Intake: IV 563 281 23 0.9 pressure bag 93 39 3 Co/CI 80 Lactated Ringers 1,000 ml 390 242 20 @ 20 mls/hr IV .Q24H [facility] Rx#:[id number] Intake, IV Titration 236.417 31.139 Amount Albumin Human 5% 250 ml 100 In Empty Bag 1 bag @ 250 mls/hr IVPB Q1HR PRN Rx#: [id number] Insulin Regular 100 unit 36.417 31.139 In Sodium Chloride 0.9% 100 ml @ Per Protocol IV .Q0M [facility] Rx#:[id number] Magnesium Sulfate-D5w Pmx 100 1 gm In Dextrose/Water 1 100ml.bag @ 100 mls/hr IVPB ONCE ONE Rx#: [id number] Oral 500 Output: Chest Tube Drainage 450 300 20 Chest Tube Right Pleural/ 450 300 20 Mediastinal Urine 603 585 45 Other: Voiding Method Indwelling Catheter Indwelling Catheter ABP, PAP, CO, CI - Last Documented Arterial Blood Pressure 157/61 Pulmonary Artery Pressure 32/16 Cardiac Output 5 Cardiac Index 2.3 - Exam No acute distress, oriented 3. Nasal O2 in place. She is sitting up in the chair. HEENT examination is grossly unremarkable. Mucous membranes are moist. No oral lesions. Neck supple. Full range of motion. No adenopathy thyromegaly or neck vein distention. Cardiovascular examination reveals regular rhythm rate. S1-S2 normal. No S3 or S4. No discernible murmur noted. Heart sounds are distant. Lungs reveal mostly bilateral basilar crackles. There are a few scattered inspiratory and expiratory rhonchi. No wheezes. She does not take deep breaths. Breath sounds are diminished throughout. Breath sounds are equal bilaterally. Abdomen soft bowel sounds are heard. No masses or tenderness. Extremities are intact. No cyanosis clubbing or edema. Skin is without rash or lesion. Neurologic examination is brief but nonfocal. - Labs CBC & Chem 7: 06/15/18 04:16 06/15/18 04:16 Labs: Abnormal Lab Results - Last 24 Hours (Table) 06/14/18 06/14/18 06/14/18 Range/Units 08:16 09:27 10:09 WBC (3.8-10.6) k/uL RBC (3.80-5.40) m/uL Hgb (11.4-16.0) gm/dL Hct (34.0-46.0) % Plt Count (150-450) k/uL Neutrophils # (1.3-7.7) k/uL Sodium (137-145) mmol/L BUN (7-17) mg/dL Glucose (74-99) mg/dL POC Glucose (mg/dL) 148 H 172 H 180 H (75-99) mg/dL Magnesium (1.6-2.3) mg/dL AST (14-36) U/L ALT (9-52) U/L Total Protein (6.3-8.2) g/dL Albumin (3.5-5.0) g/dL 06/14/18 06/14/18 06/14/18 Range/Units 11:38 12:12 13:03 WBC (3.8-10.6) k/uL RBC (3.80-5.40) m/uL Hgb (11.4-16.0) gm/dL Hct (34.0-46.0) % Plt Count (150-450) k/uL Neutrophils # (1.3-7.7) k/uL Sodium (137-145) mmol/L BUN (7-17) mg/dL Glucose (74-99) mg/dL POC Glucose (mg/dL) 125 H 113 H 141 H (75-99) mg/dL Magnesium (1.6-2.3) mg/dL AST (14-36) U/L ALT (9-52) U/L Total Protein (6.3-8.2) g/dL Albumin (3.5-5.0) g/dL 06/14/18 06/14/18 06/14/18 Range/Units 13:52 15:04 16:00 WBC (3.8-10.6) k/uL RBC (3.80-5.40) m/uL Hgb (11.4-16.0) gm/dL Hct (34.0-46.0) % Plt Count (150-450) k/uL Neutrophils # (1.3-7.7) k/uL Sodium (137-145) mmol/L BUN (7-17) mg/dL Glucose (74-99) mg/dL POC Glucose (mg/dL) 190 H 153 H 112 H (75-99) mg/dL Magnesium (1.6-2.3) mg/dL AST (14-36) U/L ALT (9-52) U/L Total Protein (6.3-8.2) g/dL Albumin (3.5-5.0) g/dL 06/14/18 06/14/18 06/14/18 Range/Units 17:15 18:21 18:51 WBC (3.8-10.6) k/uL RBC (3.80-5.40) m/uL Hgb (11.4-16.0) gm/dL Hct (34.0-46.0) % Plt Count (150-450) k/uL Neutrophils # (1.3-7.7) k/uL Sodium (137-145) mmol/L BUN (7-17) mg/dL Glucose (74-99) mg/dL POC Glucose (mg/dL) 106 H 141 H 154 H (75-99) mg/dL Magnesium (1.6-2.3) mg/dL AST (14-36) U/L ALT (9-52) U/L Total Protein (6.3-8.2) g/dL Albumin (3.5-5.0) g/dL 06/14/18 06/14/18 06/14/18 Range/Units 19:59 21:09 22:21 WBC (3.8-10.6) k/uL RBC (3.80-5.40) m/uL Hgb (11.4-16.0) gm/dL Hct (34.0-46.0) % Plt Count (150-450) k/uL Neutrophils # (1.3-7.7) k/uL Sodium (137-145) mmol/L BUN (7-17) mg/dL Glucose (74-99) mg/dL POC Glucose (mg/dL) 166 H 135 H 113 H (75-99) mg/dL Magnesium (1.6-2.3) mg/dL AST (14-36) U/L ALT (9-52) U/L Total Protein (6.3-8.2) g/dL Albumin (3.5-5.0) g/dL 06/14/18 06/15/18 06/15/18 Range/Units 23:16 00:13 01:56 WBC (3.8-10.6) k/uL RBC (3.80-5.40) m/uL Hgb (11.4-16.0) gm/dL Hct (34.0-46.0) % Plt Count (150-450) k/uL Neutrophils # (1.3-7.7) k/uL Sodium (137-145) mmol/L BUN (7-17) mg/dL Glucose (74-99) mg/dL POC Glucose (mg/dL) 111 H 122 H 127 H (75-99) mg/dL Magnesium (1.6-2.3) mg/dL AST (14-36) U/L ALT (9-52) U/L Total Protein (6.3-8.2) g/dL Albumin (3.5-5.0) g/dL 06/15/18 06/15/18 06/15/18 Range/Units 03:25 04:16 04:16 WBC 17.5 H (3.8-10.6) k/uL RBC 3.46 L (3.80-5.40) m/uL Hgb 10.6 L (11.4-16.0) gm/dL Hct 31.8 L (34.0-46.0) % Plt Count 129 L (150-450) k/uL Neutrophils # 15.2 H (1.3-7.7) k/uL Sodium 133 L (137-145) mmol/L BUN 20 H (7-17) mg/dL Glucose 112 H (74-99) mg/dL POC Glucose (mg/dL) 120 H (75-99) mg/dL Magnesium 2.4 H (1.6-2.3) mg/dL AST 87 H (14-36) U/L ALT 60 H (9-52) U/L Total Protein 5.5 L (6.3-8.2) g/dL Albumin 3.3 L (3.5-5.0) g/dL 06/15/18 06/15/18 06/15/18 Range/Units 04:18 05:18 06:42 WBC (3.8-10.6) k/uL RBC (3.80-5.40) m/uL Hgb (11.4-16.0) gm/dL Hct (34.0-46.0) % Plt Count (150-450) k/uL Neutrophils # (1.3-7.7) k/uL Sodium (137-145) mmol/L BUN (7-17) mg/dL Glucose (74-99) mg/dL POC Glucose (mg/dL) 114 H 131 H 134 H (75-99) mg/dL Magnesium (1.6-2.3) mg/dL AST (14-36) U/L ALT (9-52) U/L Total Protein (6.3-8.2) g/dL Albumin (3.5-5.0) g/dL Assessment and Plan Assessment: Assessment Postop day #2, status post three-vessel bypass grafting and aortic valve replacement for severe aortic stenosis Routine postoperative ventilator management Obesity History of hypertension History of hyperlipidemia Vitamin D deficiency Previous history of tobacco use Plan: Plan dated 06/13/2018 The patient's blood gases will be evaluated and adjusted accordingly. The patient should be placed on DuoNeb every 4 hours [id number]. We'll await the chest x-ray. We'll continue to follow the patient closely and hopefully get the patient extubated within the 6 hour window or sooner. The patient appears to be relatively stable this time. The patient's on the SIMV mode. Additional recommendations and suggestions are forthcoming. Prognosis is guarded. We will continue to follow closely. Blood gases done in the OR show a PaO2 of fluid within 420 a PaCO2 of 39 and a pH of 7.41. No additional labs are back yet and the chest x-ray is currently pending. Plan dated 06/14/2018 Medications labs and x-rays are all reviewed. I did pass on the cardiothoracic that I thought the patient's chest x-ray showed some excess fluid. She would probably benefit from some IV Lasix. She is stable hemodynamically. She was extubated within the 6 hour window or close to it. Labs are reviewed and all looked good. I did encourage her to do deep breathing coughing and clearing of secretions. We also recommend that she use incentive spirometer every hour while awake. Additional recommendations and suggestions are forthcoming. Prognosis is guarded. Critical care time 32 minutes Plan dated 06/15/2018 Chest x-ray, labs, and medications are all reviewed. She is doing reasonably well on the incentive spirometer getting about 750 mL. In addition, recommend deep breathing coughing and clearing of secretions. White count is 17.5 hemoglobin 10.6 hematocrit 31.8 and platelet count 129,000. Sodium is 133 with a potassium of 4.5, chlorides 100 CO2 25 and 9 8 BUN 20 and creatinine of 0.74. The patient is sitting up in the chair. She seems be doing reasonably well. We will continue to follow her closely. Additional recommendations and suggestions are forthcoming. Critical care time 33 minutes Time with Patient: Greater than 30
--- NOTE | 2018-06-15 07:44 | P.PN ---
Subjective Progress Note Date: 06/15/18 Principal diagnosis: Mitral valve repair This is a pleasant 72-year-old female patient who sees Dr. Bergeron as an outpatient who was admitted to the hospital yesterday and underwent open heart surgery where the patient received aortic valve replacement using bioprosthetic valve #23 along with coronary artery bypass grafting 2 where she received reverse SVG to OM and reverse SVG to RCA. This is postoperative patient day #2. The patient was extubated on the same day of the surgery. She remains hemodynamically stable and not requiring any vasopressors. She remains in normal sinus mechanism with some PVCs. Overall she looks very comfortable, sitting in the chair, doesn't look in any distress. Urine output is marginal. She might benefit from an extra dose of IV Lasix. The chest x-ray today looks better than yesterday. She'll remain on dual antiplatelet therapy along with a statin. Objective - Vital Signs Vital signs: Vital Signs Temp 98.4 F 06/15/18 04:00 Pulse 80 06/15/18 07:00 Resp 21 06/15/18 07:00 BP 138/70 06/15/18 07:00 Pulse Ox 97 06/15/18 07:00 Intake & Output 06/14/18 06/15/18 06/15/18 18:59 06:59 18:59 Intake Total 1299.417 312.139 23 Output Total 1053 885 65 Balance 246.417 -572.861 -42 Weight 108.5 kg 106.3 kg Intake: IV 563 281 23 0.9 pressure bag 93 39 3 Co/CI 80 Lactated Ringers 1,000 ml 390 242 20 @ 20 mls/hr IV .Q24H [facility] Rx#:[id number] Intake, IV Titration 236.417 31.139 Amount Albumin Human 5% 250 ml 100 In Empty Bag 1 bag @ 250 mls/hr IVPB Q1HR PRN Rx#: [id number] Insulin Regular 100 unit 36.417 31.139 In Sodium Chloride 0.9% 100 ml @ Per Protocol IV .Q0M [facility] Rx#:[id number] Magnesium Sulfate-D5w Pmx 100 1 gm In Dextrose/Water 1 100ml.bag @ 100 mls/hr IVPB ONCE ONE Rx#: [id number] Oral 500 Output: Chest Tube Drainage 450 300 20 Chest Tube Right Pleural/ 450 300 20 Mediastinal Urine 603 585 45 Other: Voiding Method Indwelling Catheter Indwelling Catheter ABP, PAP, CO, CI - Last Documented Arterial Blood Pressure 157/61 Pulmonary Artery Pressure 32/16 Cardiac Output 5 Cardiac Index 2.3 - Constitutional General appearance: Present: no acute distress - Respiratory Respiratory: bilateral: CTA - Cardiovascular Rhythm: regular Heart sounds: normal: S1, S2 - Labs CBC & Chem 7: 06/15/18 04:16 06/15/18 04:16 Labs: Abnormal Lab Results - Last 24 Hours (Table) 06/14/18 06/14/18 06/14/18 Range/Units 08:16 09:27 10:09 WBC (3.8-10.6) k/uL RBC (3.80-5.40) m/uL Hgb (11.4-16.0) gm/dL Hct (34.0-46.0) % Plt Count (150-450) k/uL Neutrophils # (1.3-7.7) k/uL Sodium (137-145) mmol/L BUN (7-17) mg/dL Glucose (74-99) mg/dL POC Glucose (mg/dL) 148 H 172 H 180 H (75-99) mg/dL Magnesium (1.6-2.3) mg/dL AST (14-36) U/L ALT (9-52) U/L Total Protein (6.3-8.2) g/dL Albumin (3.5-5.0) g/dL 06/14/18 06/14/18 06/14/18 Range/Units 11:38 12:12 13:03 WBC (3.8-10.6) k/uL RBC (3.80-5.40) m/uL Hgb (11.4-16.0) gm/dL Hct (34.0-46.0) % Plt Count (150-450) k/uL Neutrophils # (1.3-7.7) k/uL Sodium (137-145) mmol/L BUN (7-17) mg/dL Glucose (74-99) mg/dL POC Glucose (mg/dL) 125 H 113 H 141 H (75-99) mg/dL Magnesium (1.6-2.3) mg/dL AST (14-36) U/L ALT (9-52) U/L Total Protein (6.3-8.2) g/dL Albumin (3.5-5.0) g/dL 06/14/18 06/14/18 06/14/18 Range/Units 13:52 15:04 16:00 WBC (3.8-10.6) k/uL RBC (3.80-5.40) m/uL Hgb (11.4-16.0) gm/dL Hct (34.0-46.0) % Plt Count (150-450) k/uL Neutrophils # (1.3-7.7) k/uL Sodium (137-145) mmol/L BUN (7-17) mg/dL Glucose (74-99) mg/dL POC Glucose (mg/dL) 190 H 153 H 112 H (75-99) mg/dL Magnesium (1.6-2.3) mg/dL AST (14-36) U/L ALT (9-52) U/L Total Protein (6.3-8.2) g/dL Albumin (3.5-5.0) g/dL 06/14/18 06/14/18 06/14/18 Range/Units 17:15 18:21 18:51 WBC (3.8-10.6) k/uL RBC (3.80-5.40) m/uL Hgb (11.4-16.0) gm/dL Hct (34.0-46.0) % Plt Count (150-450) k/uL Neutrophils # (1.3-7.7) k/uL Sodium (137-145) mmol/L BUN (7-17) mg/dL Glucose (74-99) mg/dL POC Glucose (mg/dL) 106 H 141 H 154 H (75-99) mg/dL Magnesium (1.6-2.3) mg/dL AST (14-36) U/L ALT (9-52) U/L Total Protein (6.3-8.2) g/dL Albumin (3.5-5.0) g/dL 06/14/18 06/14/18 06/14/18 Range/Units 19:59 21:09 22:21 WBC (3.8-10.6) k/uL RBC (3.80-5.40) m/uL Hgb (11.4-16.0) gm/dL Hct (34.0-46.0) % Plt Count (150-450) k/uL Neutrophils # (1.3-7.7) k/uL Sodium (137-145) mmol/L BUN (7-17) mg/dL Glucose (74-99) mg/dL POC Glucose (mg/dL) 166 H 135 H 113 H (75-99) mg/dL Magnesium (1.6-2.3) mg/dL AST (14-36) U/L ALT (9-52) U/L Total Protein (6.3-8.2) g/dL Albumin (3.5-5.0) g/dL 06/14/18 06/15/18 06/15/18 Range/Units 23:16 00:13 01:56 WBC (3.8-10.6) k/uL RBC (3.80-5.40) m/uL Hgb (11.4-16.0) gm/dL Hct (34.0-46.0) % Plt Count (150-450) k/uL Neutrophils # (1.3-7.7) k/uL Sodium (137-145) mmol/L BUN (7-17) mg/dL Glucose (74-99) mg/dL POC Glucose (mg/dL) 111 H 122 H 127 H (75-99) mg/dL Magnesium (1.6-2.3) mg/dL AST (14-36) U/L ALT (9-52) U/L Total Protein (6.3-8.2) g/dL Albumin (3.5-5.0) g/dL 06/15/18 06/15/18 06/15/18 Range/Units 03:25 04:16 04:16 WBC 17.5 H (3.8-10.6) k/uL RBC 3.46 L (3.80-5.40) m/uL Hgb 10.6 L (11.4-16.0) gm/dL Hct 31.8 L (34.0-46.0) % Plt Count 129 L (150-450) k/uL Neutrophils # 15.2 H (1.3-7.7) k/uL Sodium 133 L (137-145) mmol/L BUN 20 H (7-17) mg/dL Glucose 112 H (74-99) mg/dL POC Glucose (mg/dL) 120 H (75-99) mg/dL Magnesium 2.4 H (1.6-2.3) mg/dL AST 87 H (14-36) U/L ALT 60 H (9-52) U/L Total Protein 5.5 L (6.3-8.2) g/dL Albumin 3.3 L (3.5-5.0) g/dL 06/15/18 06/15/18 06/15/18 Range/Units 04:18 05:18 06:42 WBC (3.8-10.6) k/uL RBC (3.80-5.40) m/uL Hgb (11.4-16.0) gm/dL Hct (34.0-46.0) % Plt Count (150-450) k/uL Neutrophils # (1.3-7.7) k/uL Sodium (137-145) mmol/L BUN (7-17) mg/dL Glucose (74-99) mg/dL POC Glucose (mg/dL) 114 H 131 H 134 H (75-99) mg/dL Magnesium (1.6-2.3) mg/dL AST (14-36) U/L ALT (9-52) U/L Total Protein (6.3-8.2) g/dL Albumin (3.5-5.0) g/dL Assessment and Plan Assessment: Assessment #1 status post aortic valve replacement using bioprosthetic valve #2 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
[2018-06-15 08:07] LABS: Glucose,Whole Blood 126 mg/dL (75-99)
[2018-06-15] MEDS: IPRATROPIUM-ALBUTEROL 3 ML NEB INHALATION SCH ×4 (08:16→19:46)
[2018-06-15] MEDS: HEPARIN SODIUM,PORCINE 5,000 UNIT/ML 1 ML VIAL SQ SCH ×3 (08:34→23:35)
--- NOTE | 2018-06-15 08:43 | XR ---
EXAMINATION TYPE: XR chest 1V portable DATE OF EXAM: 06/15/2018 COMPARISON: 06/14/2018 HISTORY: SOB, Follow Up FINDINGS: Right-sided chest tube is unchanged in position. No evidence of pneumothorax. Dushore-Messi catheter has been removed with right IJ sheath in place. No change in bibasilar opacities. Stable appearance of the cardio-mediastinal structures at this time. Pleural effusion unchanged. IMPRESSION: 1. Stable portable chest. Clinical correlation and follow up until resolution is recommended.
[2018-06-15 09:04] LABS: Glucose,Whole Blood 146 mg/dL (75-99)
[2018-06-15] MEDS: CLOPIDOGREL 75 MG TAB PO SCH (09:18)
[2018-06-15] MEDS: ATORVASTATIN 40 MG TAB PO SCH (09:18)
[2018-06-15] MEDS: ASPIRIN 325 MG TAB PO SCH (09:18)
[2018-06-15] MEDS: MUPIROCIN 2% OINT 22 GM TUBE NASAL SCH ×2 (09:18→20:36)
[2018-06-15] MEDS: METOPROLOL TARTRATE 25 MG TAB PO SCH ×2 (09:18→20:35)
[2018-06-15] MEDS: PANTOPRAZOLE 40 MG TABLET PO SCH (09:18)
[2018-06-15] MEDS: INSULIN REGULAR 100 UNIT in SODIUM CHLORIDE 0.9% 100 ML IV SCH (09:23)
[2018-06-15] MEDS ORDERED: FUROSEMIDE 10 MG/ML 2 ML VIAL IV ONE (09:30)
[2018-06-15 10:32] LABS: Glucose,Whole Blood 136 mg/dL (75-99)
--- NOTE | 2018-06-15 10:56 | P.PN ---
Subjective Progress Note Date: 06/15/18 Principal diagnosis: severe aortic valve stenosis. Two vessel coronary artery disease.history of hypertension, hyperlipidemia, previous tobacco dependence, mild COPD with preoperative FEV1 63% of predicted, obesity. POD #2 aortic valve replacement with a #23 mm Inspiris [place] bioprosthetic aortic valve. Coronary bypass grafting 2 with reverse saphenous vein graft off the aorta to the first obtuse marginal artery and the right coronary artery with left lower extremity greater saphenous vein endoscopic harvesting. Clip ligation of the left atrial appendage with a #35 mm AtriClip and intraoperative HANNAH. The patient is currently sitting up in a recliner in no acute distress. She remains hemodynamically stable on no inotropes or pressors. Does complain of sternal incision and right chest tube site pain which is tolerable with current pain medication regimen. Denies shortness of breath. No new concerns. Ambulated in the hallway this morning. Objective - Vital Signs Vital signs: Vital Signs Temp 98.4 F 06/15/18 04:00 Pulse 80 06/15/18 07:00 Resp 21 06/15/18 07:00 BP 138/70 06/15/18 07:00 Pulse Ox 97 06/15/18 08:16 Intake & Output 06/14/18 06/15/18 06/15/18 18:59 06:59 18:59 Intake Total 1299.417 312.139 30.763 Output Total 1053 885 65 Balance 246.417 -572.861 -34.237 Weight 108.5 kg 106.3 kg Intake: IV 563 281 23 0.9 pressure bag 93 39 3 Co/CI 80 Lactated Ringers 1,000 ml 390 242 20 @ 20 mls/hr IV .Q24H [facility] Rx#:[id number] Intake, IV Titration 236.417 31.139 7.763 Amount Albumin Human 5% 250 ml 100 In Empty Bag 1 bag @ 250 mls/hr IVPB Q1HR PRN Rx#: [id number] Insulin Regular 100 unit 36.417 31.139 7.763 In Sodium Chloride 0.9% 100 ml @ Per Protocol IV .Q0M [facility] Rx#:[id number] Magnesium Sulfate-D5w Pmx 100 1 gm In Dextrose/Water 1 100ml.bag @ 100 mls/hr IVPB ONCE ONE Rx#: [id number] Oral 500 Output: Chest Tube Drainage 450 300 20 Chest Tube Right Pleural/ 450 300 20 Mediastinal Urine 603 585 45 Other: Voiding Method Indwelling Catheter Indwelling Catheter ABP, PAP, CO, CI - Last Documented Arterial Blood Pressure 157/61 Pulmonary Artery Pressure 32/16 Cardiac Output 5 Cardiac Index 2.3 - Constitutional General appearance: Present: cooperative, no acute distress, obese - Respiratory Details: Lungs sounds diminished bilaterally. Respirations even, nonlabored. Currently on 2 L nasal cannula with oxygen saturation 95%. Able to achieve 750 mL on her incentive spirometry. Weak cough. Mediastinal/right pleural chest tube to continuous wall suction, 170 mL serosanguineous drainage overnight, 650 mL in the last 24 hours, no air leak present. - Cardiovascular Details: S1, S2 present. Regular rate and rhythm, sinus rhythm on telemetry. Sternum stable. A/V epicardial pacemakers present, grounded. Palpable peripheral pulses bilaterally. No edema present. No calf pain or tenderness noted. Right internal jugular Cordis, right radial arterial line present. Heart hugger in place with patient demonstrating appropriate use. Antiembolism stockings, SCDs present. - Gastrointestinal Gastrointestinal Comment(s): Abdomen soft, nontender, nondistended. Active bowel sounds present 4 quadrants. Tolerating diet. Positive flatus, negative bowel movement. - Genitourinary Genitourinary Comment(s): Villegas present draining clear, yellow urine. Output overnight 20-70 mL per hour , 295 mL in the last 8 hours. - Integumentary Integumentary Comment(s): Skin is warm and dry with evidence of good perfusion. Anterior chest incision well approximated and covered with dry intact dressing. Left lower extremity EVH site well approximated. - Neurologic Neurologic: Present: CNII-XII intact - Musculoskeletal Musculoskeletal: Present: gait normal, strength equal bilaterally - Psychiatric Psychiatric: Present: A&O x's 3, appropriate affect, intact judgment & insight - Allied health notes Allied health notes reviewed: nursing - Labs CBC & Chem 7: 06/15/18 04:16 06/15/18 04:16 Labs: Abnormal Lab Results - Last 24 Hours (Table) 06/14/18 06/14/18 06/14/18 Range/Units 11:38 12:12 13:03 WBC (3.8-10.6) k/uL RBC (3.80-5.40) m/uL Hgb (11.4-16.0) gm/dL Hct (34.0-46.0) % Plt Count (150-450) k/uL Neutrophils # (1.3-7.7) k/uL Sodium (137-145) mmol/L BUN (7-17) mg/dL Glucose (74-99) mg/dL POC Glucose (mg/dL) 125 H 113 H 141 H (75-99) mg/dL Magnesium (1.6-2.3) mg/dL AST (14-36) U/L ALT (9-52) U/L Total Protein (6.3-8.2) g/dL Albumin (3.5-5.0) g/dL 06/14/18 06/14/18 06/14/18 Range/Units 13:52 15:04 16:00 WBC (3.8-10.6) k/uL RBC (3.80-5.40) m/uL Hgb (11.4-16.0) gm/dL Hct (34.0-46.0) % Plt Count (150-450) k/uL Neutrophils # (1.3-7.7) k/uL Sodium (137-145) mmol/L BUN (7-17) mg/dL Glucose (74-99) mg/dL POC Glucose (mg/dL) 190 H 153 H 112 H (75-99) mg/dL Magnesium (1.6-2.3) mg/dL AST (14-36) U/L ALT (9-52) U/L Total Protein (6.3-8.2) g/dL Albumin (3.5-5.0) g/dL 06/14/18 06/14/18 06/14/18 Range/Units 17:15 18:21 18:51 WBC (3.8-10.6) k/uL RBC (3.80-5.40) m/uL Hgb (11.4-16.0) gm/dL Hct (34.0-46.0) % Plt Count (150-450) k/uL Neutrophils # (1.3-7.7) k/uL Sodium (137-145) mmol/L BUN (7-17) mg/dL Glucose (74-99) mg/dL POC Glucose (mg/dL) 106 H 141 H 154 H (75-99) mg/dL Magnesium (1.6-2.3) mg/dL AST (14-36) U/L ALT (9-52) U/L Total Protein (6.3-8.2) g/dL Albumin (3.5-5.0) g/dL 06/14/18 06/14/18 06/14/18 Range/Units 19:59 21:09 22:21 WBC (3.8-10.6) k/uL RBC (3.80-5.40) m/uL Hgb (11.4-16.0) gm/dL Hct (34.0-46.0) % Plt Count (150-450) k/uL Neutrophils # (1.3-7.7) k/uL Sodium (137-145) mmol/L BUN (7-17) mg/dL Glucose (74-99) mg/dL POC Glucose (mg/dL) 166 H 135 H 113 H (75-99) mg/dL Magnesium (1.6-2.3) mg/dL AST (14-36) U/L ALT (9-52) U/L Total Protein (6.3-8.2) g/dL Albumin (3.5-5.0) g/dL 06/14/18 06/15/18 06/15/18 Range/Units 23:16 00:13 01:56 WBC (3.8-10.6) k/uL RBC (3.80-5.40) m/uL Hgb (11.4-16.0) gm/dL Hct (34.0-46.0) % Plt Count (150-450) k/uL Neutrophils # (1.3-7.7) k/uL Sodium (137-145) mmol/L BUN (7-17) mg/dL Glucose (74-99) mg/dL POC Glucose (mg/dL) 111 H 122 H 127 H (75-99) mg/dL Magnesium (1.6-2.3) mg/dL AST (14-36) U/L ALT (9-52) U/L Total Protein (6.3-8.2) g/dL Albumin (3.5-5.0) g/dL 06/15/18 06/15/18 06/15/18 Range/Units 03:25 04:16 04:16 WBC 17.5 H (3.8-10.6) k/uL RBC 3.46 L (3.80-5.40) m/uL Hgb 10.6 L (11.4-16.0) gm/dL Hct 31.8 L (34.0-46.0) % Plt Count 129 L (150-450) k/uL Neutrophils # 15.2 H (1.3-7.7) k/uL Sodium 133 L (137-145) mmol/L BUN 20 H (7-17) mg/dL Glucose 112 H (74-99) mg/dL POC Glucose (mg/dL) 120 H (75-99) mg/dL Magnesium 2.4 H (1.6-2.3) mg/dL AST 87 H (14-36) U/L ALT 60 H (9-52) U/L Total Protein 5.5 L (6.3-8.2) g/dL Albumin 3.3 L (3.5-5.0) g/dL 06/15/18 06/15/18 06/15/18 Range/Units 04:18 05:18 06:42 WBC (3.8-10.6) k/uL RBC (3.80-5.40) m/uL Hgb (11.4-16.0) gm/dL Hct (34.0-46.0) % Plt Count (150-450) k/uL Neutrophils # (1.3-7.7) k/uL Sodium (137-145) mmol/L BUN (7-17) mg/dL Glucose (74-99) mg/dL POC Glucose (mg/dL) 114 H 131 H 134 H (75-99) mg/dL Magnesium (1.6-2.3) mg/dL AST (14-36) U/L ALT (9-52) U/L Total Protein (6.3-8.2) g/dL Albumin (3.5-5.0) g/dL 06/15/18 06/15/18 06/15/18 Range/Units 08:03 09:03 10:23 WBC (3.8-10.6) k/uL RBC (3.80-5.40) m/uL Hgb (11.4-16.0) gm/dL Hct (34.0-46.0) % Plt Count (150-450) k/uL Neutrophils # (1.3-7.7) k/uL Sodium (137-145) mmol/L BUN (7-17) mg/dL Glucose (74-99) mg/dL POC Glucose (mg/dL) 126 H 146 H 136 H (75-99) mg/dL Magnesium (1.6-2.3) mg/dL AST (14-36) U/L ALT (9-52) U/L Total Protein (6.3-8.2) g/dL Albumin (3.5-5.0) g/dL - Imaging and Cardiology Chest x-ray: report reviewed, image reviewed Assessment and Plan (1) Severe aortic stenosis Current Visit: Yes Status: Chronic Code(s): I35.0 - NONRHEUMATIC AORTIC ( VALVE) STENOSIS SNOMED Code(s): 42856760 (2) Hypertension Current Visit: Yes Status: Chronic Code(s): I10 - ESSENTIAL (PRIMARY) HYPERTENSION SNOMED Code(s): 52590460 (3) Hyperlipidemia Current Visit: Yes Status: Chronic Code(s): E78.5 - HYPERLIPIDEMIA, UNSPECIFIED SNOMED Code(s): 09799693 (4) Tobacco dependence in remission Current Visit: No Status: Resolved Code(s): F17.201 - NICOTINE DEPENDENCE, UNSPECIFIED, IN REMISSION SNOMED Code(s): 579996230 (5) COPD (chronic obstructive pulmonary disease) Current Visit: Yes Status: Chronic Code(s): J44.9 - CHRONIC OBSTRUCTIVE PULMONARY DISEASE, UNSPECIFIED SNOMED Code(s): 37288320 (6) Obesity Current Visit: Yes Status: Chronic Code(s): E66.9 - OBESITY, UNSPECIFIED SNOMED Code(s): 319154936 (7) CAD (coronary artery disease) Current Visit: Yes Status: Chronic Code(s): I25.10 - ATHSCL HEART DISEASE OF [place] CORONARY ARTERY W/O ANG PCTRS SNOMED Code(s): 47248423 Plan: 1. Continue aspirin, statin, Plavix, beta francis. Will increase beta francis therapy as tolerated. Low-dose ROSE inhibitor added. 2. Wean O2 as tolerated. Encourage incentive spirometry use 10 times every hour while awake. 3. Bronchodilators per pulmonology. 4. Will give Lasix 20 mg IV push 1 today. Discontinue Villegas after diuresis. 5. Increase activity, ambulate in hallway. PT/OT/cardiac rehab following. 6. Will follow daily labs and chest x-rays. 7. Insulin management per primary care service. 8. Pain controlled with current medication regimen. 9. GI prophylaxis with Protonix. DVT prophylaxis with subcu heparin, SCDs. 10. Will discontinue mediastinal chest tube. Discontinue arterial line, Cordis. 11. Will place transfer orders to [address] [place] [address] cardiac stepdown unit. 12. More recommendations to follow. Time with Patient: Greater than 30
[2018-06-15 11:03] LABS: Glucose,Whole Blood 114 mg/dL (75-99)
[2018-06-15 11:21] LABS: Glucose,Whole Blood 111 mg/dL (75-99)
[2018-06-15] MEDS ORDERED: LISINOPRIL 2.5 MG TAB PO SCH (12:00)
[2018-06-15 12:10] LABS: Glucose,Whole Blood 99 mg/dL (75-99)
[2018-06-15] MEDS: CHOLECALCIFEROL 1,000 UNIT TAB PO SCH (12:35)
[2018-06-15] MEDS: MULTIVITAMINS, THERA 1 EACH TAB PO SCH (12:36)
[2018-06-15] MEDS: CYANOCOBALAMIN 500 MCG TAB PO SCH (12:36)
[2018-06-15] MEDS: LACTATED RINGERS 1,000 ML IV SCH (12:41)
[2018-06-15 13:08] LABS: Glucose,Whole Blood 120 mg/dL (75-99)
[2018-06-15 14:46] LABS: Glucose,Whole Blood 156 mg/dL (75-99)
[2018-06-15 15:10] LABS: Glucose,Whole Blood 146 mg/dL (75-99)
[2018-06-15 17:40] LABS: Glucose,Whole Blood 113 mg/dL (75-99)
[2018-06-15 19:14] LABS: Hemoglobin A1C 5.9 % (4.0-6.0)
[2018-06-15] MEDS: INSULIN ASPART 100 UNIT/ML 1 ML 10 ML VIAL SQ SCH ×2 (19:53→20:34)
[2018-06-15 20:26] LABS: Glucose,Whole Blood 173 mg/dL (75-99)
[2018-06-15] MEDS: SENNOSIDES-DOCUSATE SODIUM 1 EACH TAB PO SCH (20:37)
--- NOTE | 2018-06-15 23:16 | P.PN ---
Subjective This is a pleasant 72 years old female with past medical history of hypertension hyperlipidemia, digestive joint disease. Cholecystectomy. With history of severe aortic stenosis and coronary artery disease. He presents because of progressive dyspnea. She is status post 2 vessel bypass grafting with aortic valve replacement. She got intubated currently and managed with the intensive care unit specialist on the case. We've been consulted for medical management. 06/14/2018 pt is s/p aortic valve replacement, and CABG , she is seen in the ICU today , s/ p extubation . she is multiple medications including asprin and plavix, lipitor. pt is been treated for constipation too. on insulin drip . sugar controlled. wbc 19 K. liver enz is mildly elevated and needs to be followed up. 06/15/18 pt is s/p aortic valve replacement, and CABG , she is seen in the ICU today , s/ p extubation . she is multiple medications including asprin and plavix, lipitor. pt is been treated for constipation too. on insulin drip . sugar controlled. wbc 19 K down to 17.5K. . liver enz is mildly elevated and needs to be followed up, they are trending down. Objective - Vital Signs Vital signs: Vital Signs Temp 99.1 F 06/15/18 16:00 Pulse 91 06/15/18 18:00 Resp 25 H 06/15/18 18:00 BP 118/62 06/15/18 17:00 Pulse Ox 89 L 06/15/18 18:00 Intake & Output 06/15/18 06/15/18 06/16/18 06:59 18:59 06:59 Intake Total 312.139 33.738 Output Total 885 65 Balance -572.861 -31.262 Weight 106.3 kg Intake: IV 281 23 0.9 pressure bag 39 3 Lactated Ringers 1,000 ml 242 20 @ 20 mls/hr IV .Q24H [facility] Rx#:[id number] Intake, IV Titration 31.139 10.738 Amount Insulin Regular 100 unit 31.139 10.738 In Sodium Chloride 0.9% 100 ml @ Per Protocol IV .Q0M [facility] Rx#:[id number] Output: Chest Tube Drainage 300 20 Chest Tube Right Pleural/ 300 20 Mediastinal Urine 585 45 Other: Voiding Method Indwelling Catheter Indwelling Catheter ABP, PAP, CO, CI - Last Documented Arterial Blood Pressure 121/60 Pulmonary Artery Pressure 32/16 Cardiac Output 5 Cardiac Index 2.3 - Exam GENERAL: The patient is alert and oriented x3, not in any acute distress. Well developed, well nourished. HEENT: Pupils are round and equally reacting to light. EOMI. No scleral icterus. No conjunctival pallor. Normocephalic, atraumatic. No pharyngeal erythema. No thyromegaly. -CARDIOVASCULAR: S1 and S2 present. No murmurs, rubs, or gallops. incision site is clean and healing PULMONARY: Chest is clear to auscultation, no wheezing or crackles. ABDOMEN: Soft, nontender, nondistended, normoactive bowel sounds. No palpable organomegaly. MUSCULOSKELETAL: No joint swelling or deformity. EXTREMITIES: No cyanosis, clubbing, or pedal edema. NEUROLOGICAL: Gross neurological examination did not reveal any focal deficits. SKIN: No rashes. - Labs CBC & Chem 7: 06/15/18 04:16 06/15/18 04:16 Labs: Abnormal Lab Results - Last 24 Hours (Table) 06/14/18 06/14/18 06/14/18 Range/Units 19:59 21:09 22:21 WBC (3.8-10.6) k/uL RBC (3.80-5.40) m/uL Hgb (11.4-16.0) gm/dL Hct (34.0-46.0) % Plt Count (150-450) k/uL Neutrophils # (1.3-7.7) k/uL Sodium (137-145) mmol/L BUN (7-17) mg/dL Glucose (74-99) mg/dL POC Glucose (mg/dL) 166 H 135 H 113 H (75-99) mg/dL Magnesium (1.6-2.3) mg/dL AST (14-36) U/L ALT (9-52) U/L Total Protein (6.3-8.2) g/dL Albumin (3.5-5.0) g/dL 06/14/18 06/15/18 06/15/18 Range/Units 23:16 00:13 01:56 WBC (3.8-10.6) k/uL RBC (3.80-5.40) m/uL Hgb (11.4-16.0) gm/dL Hct (34.0-46.0) % Plt Count (150-450) k/uL Neutrophils # (1.3-7.7) k/uL Sodium (137-145) mmol/L BUN (7-17) mg/dL Glucose (74-99) mg/dL POC Glucose (mg/dL) 111 H 122 H 127 H (75-99) mg/dL Magnesium (1.6-2.3) mg/dL AST (14-36) U/L ALT (9-52) U/L Total Protein (6.3-8.2) g/dL Albumin (3.5-5.0) g/dL 06/15/18 06/15/18 06/15/18 Range/Units 03:25 04:16 04:16 WBC 17.5 H (3.8-10.6) k/uL RBC 3.46 L (3.80-5.40) m/uL Hgb 10.6 L (11.4-16.0) gm/dL Hct 31.8 L (34.0-46.0) % Plt Count 129 L (150-450) k/uL Neutrophils # 15.2 H (1.3-7.7) k/uL Sodium 133 L (137-145) mmol/L BUN 20 H (7-17) mg/dL Glucose 112 H (74-99) mg/dL POC Glucose (mg/dL) 120 H (75-99) mg/dL Magnesium 2.4 H (1.6-2.3) mg/dL AST 87 H (14-36) U/L ALT 60 H (9-52) U/L Total Protein 5.5 L (6.3-8.2) g/dL Albumin 3.3 L (3.5-5.0) g/dL 06/15/18 06/15/18 06/15/18 Range/Units 04:18 05:18 06:42 WBC (3.8-10.6) k/uL RBC (3.80-5.40) m/uL Hgb (11.4-16.0) gm/dL Hct (34.0-46.0) % Plt Count (150-450) k/uL Neutrophils # (1.3-7.7) k/uL Sodium (137-145) mmol/L BUN (7-17) mg/dL Glucose (74-99) mg/dL POC Glucose (mg/dL) 114 H 131 H 134 H (75-99) mg/dL Magnesium (1.6-2.3) mg/dL AST (14-36) U/L ALT (9-52) U/L Total Protein (6.3-8.2) g/dL Albumin (3.5-5.0) g/dL 06/15/18 06/15/18 06/15/18 Range/Units 08:03 09:03 10:23 WBC (3.8-10.6) k/uL RBC (3.80-5.40) m/uL Hgb (11.4-16.0) gm/dL Hct (34.0-46.0) % Plt Count (150-450) k/uL Neutrophils # (1.3-7.7) k/uL Sodium (137-145) mmol/L BUN (7-17) mg/dL Glucose (74-99) mg/dL POC Glucose (mg/dL) 126 H 146 H 136 H (75-99) mg/dL Magnesium (1.6-2.3) mg/dL AST (14-36) U/L ALT (9-52) U/L Total Protein (6.3-8.2) g/dL Albumin (3.5-5.0) g/dL 06/15/18 06/15/18 06/15/18 Range/Units 11:00 11:18 12:54 WBC (3.8-10.6) k/uL RBC (3.80-5.40) m/uL Hgb (11.4-16.0) gm/dL Hct (34.0-46.0) % Plt Count (150-450) k/uL Neutrophils # (1.3-7.7) k/uL Sodium (137-145) mmol/L BUN (7-17) mg/dL Glucose (74-99) mg/dL POC Glucose (mg/dL) 114 H 111 H 120 H (75-99) mg/dL Magnesium (1.6-2.3) mg/dL AST (14-36) U/L ALT (9-52) U/L Total Protein (6.3-8.2) g/dL Albumin (3.5-5.0) g/dL 06/15/18 06/15/18 06/15/18 Range/Units 14:09 15:07 17:37 WBC (3.8-10.6) k/uL RBC (3.80-5.40) m/uL Hgb (11.4-16.0) gm/dL Hct (34.0-46.0) % Plt Count (150-450) k/uL Neutrophils # (1.3-7.7) k/uL Sodium (137-145) mmol/L BUN (7-17) mg/dL Glucose (74-99) mg/dL POC Glucose (mg/dL) 156 H 146 H 113 H (75-99) mg/dL Magnesium (1.6-2.3) mg/dL AST (14-36) U/L ALT (9-52) U/L Total Protein (6.3-8.2) g/dL Albumin (3.5-5.0) g/dL Assessment and Plan Assessment: Severe aortic stenosis, with two-vessel coronary artery disease status post bypass grafting and aortic valve replacement Status post intubation, she is on vent management by the critical care unit team. got extubated on 06/14/18 Essential hypertension Hyperlipidemia History of degenerative joint disease. Plan: This is a 72 years female who presents for aortic valve replacement and CABG. Labs and medication refills. Continue with the same treatment. Continue symptomatic treatment. Resume home medication. Monitor lytes and vitals. GI and DVT prophylaxis. The management as per critical care team. Further recommendations based on the clinical course of the patient
[2018-06-16 02:29] LABS: Glucose,Whole Blood 121 mg/dL (75-99)
[2018-06-16] MEDS: INSULIN ASPART 100 UNIT/ML 1 ML 10 ML VIAL SQ SCH ×5 (02:54→21:29)
[2018-06-16 05:12] LABS: Basophils # (A) 0.1 k/uL (0-0.2); Basophils % (A) 0 %; Eosinophils # (A) 0.3 k/uL (0-0.7); Eosinophils % (A) 2 %; HCT 31.7 % (34.0-46.0); HGB 10.6 gm/dL (11.4-16.0); Lymphocytes # (A) 1.7 k/uL (1.0-4.8); Lymphocytes % (A) 10 %; MCH 30.7 pg (25.0-35.0); MCHC 33.5 g/dL (31.0-37.0); MCV 91.6 fL (80.0-100.0); Mean Platelet Volume 8.6; Monocytes # (A) 0.9 k/uL (0-1.0); Monocytes % (A) 5 %; Neutrophils # (A) 14.5 k/uL (1.3-7.7); Neutrophils % (A) 82 %; Platelet Count 145 k/uL (150-450); RBC 3.45 m/uL (3.80-5.40); RDW 13.5 % (11.5-15.5); WBC 17.7 k/uL (3.8-10.6)
[2018-06-16 05:29] LABS: ALT 44 U/L (9-52); AST 49 U/L (14-36); Albumin 3.3 g/dL (3.5-5.0); Alkaline Phosphatase 81 U/L (38-126); Anion Gap 8 mmol/L; Blood Urea Nitrogen 25 mg/dL (7-17); Calcium 9.5 mg/dL (8.4-10.2); Carbon Dioxide 26 mmol/L (22-30); Chloride 97 mmol/L (98-107); Glucose 110 mg/dL (74-99); Potassium 4.7 mmol/L (3.5-5.1); Sodium 131 mmol/L (137-145); Total Bilirubin 1.1 mg/dL (0.2-1.3); Total Protein 5.8 g/dL (6.3-8.2)
[2018-06-16] MEDS: HEPARIN SODIUM,PORCINE 5,000 UNIT/ML 1 ML VIAL SQ SCH ×3 (06:03→21:34)
[2018-06-16] MEDS: KETOROLAC 30 MG/ML 1 ML VIAL IVP SCH ×3 (06:03→19:04)
[2018-06-16] MEDS: traMADol 50 MG TAB PO PRN (06:04)
[2018-06-16] MEDS ORDERED: METOPROLOL TARTRATE 5 MG/5 ML VIAL IVP SCH (06:30)
--- NOTE | 2018-06-16 06:32 | XR ---
EXAMINATION TYPE: XR chest 1V portable DATE OF EXAM: 06/16/2018 HISTORY: post cardiac surgery. REFERENCE: Previous study dated 06/15/2018. FINDINGS: There has been a midline sternotomy. A right pleural drain remains in place. The patient's right internal jugular sheath has been removed. The heart is enlarged. There is continuing left basilar airspace disease. There is some mild atelecta sis at the right lung base. UV difficult to exclude small, bilateral effusions, greater on the left t dobbins the right. IMPRESSION: 1. CARDIOMEGALY. 2. LEFT BASILAR AIRSPACE DISEASE. 3. SMALL, BILATERAL EFFUSIONS, GREATER ON THE LEFT THAN THE RIGHT.
--- NOTE | 2018-06-16 07:03 | P.PN ---
Subjective Progress Note Date: 06/16/18 Principal diagnosis: Mitral valve repair This is a pleasant 72-year-old female patient who sees Dr. Bergeron as an outpatient who was admitted to the hospital yesterday and underwent open heart surgery where the patient received aortic valve replacement using bioprosthetic valve #23 along with coronary artery bypass grafting 2 where she received reverse SVG to OM and reverse SVG to RCA. This is postoperative patient day #3. The patient was extubated on the same day of the surgery. She remains hemodynamically stable and not requiring any vasopressors. She remains in normal sinus mechanism with some PVCs. Overall she looks very comfortable, sitting in the chair, doesn't look in any distress. Urine output is marginal. She has been receiving Lasix IV and he seems to be helpful. The hemoglobin continues to be stable. The kidney function continues to be stable. She continues to be on dual antiplatelet therapy along with a statin. Objective - Vital Signs Vital signs: Vital Signs Temp 99.1 F 06/16/18 00:00 Pulse 81 06/16/18 03:00 Resp 20 06/16/18 03:00 BP 122/68 06/16/18 03:00 Pulse Ox 93 L 06/16/18 03:00 Intake & Output 06/15/18 06/16/18 06/16/18 18:59 06:59 18:59 Intake Total 815.738 500 Output Total 705 499 Balance 110.738 1 Intake: IV 205 0.9 pressure bag 45 Lactated Ringers 1,000 ml 160 @ 20 mls/hr IV .Q24H [facility] Rx#:[id number] Intake, IV Titration 10.738 Amount Insulin Regular 100 unit 10.738 In Sodium Chloride 0.9% 100 ml @ Per Protocol IV .Q0M [facility] Rx#:[id number] Oral 600 500 Output: Chest Tube Drainage 100 149 Chest Tube Right Pleural/ 100 149 Mediastinal Urine 605 350 Other: Voiding Method Indwelling Catheter # Bowel Movements 1 ABP, PAP, CO, CI - Last Documented Arterial Blood Pressure 121/60 Pulmonary Artery Pressure 32/16 Cardiac Output 5 Cardiac Index 2.3 - Constitutional General appearance: Present: no acute distress - Respiratory Respiratory: bilateral: CTA - Cardiovascular Rhythm: regular Heart sounds: normal: S1, S2 - Labs CBC & Chem 7: 06/16/18 04:40 06/16/18 04:40 Labs: Abnormal Lab Results - Last 24 Hours (Table) 06/15/18 06/15/18 06/15/18 Range/Units 08:03 09:03 10:23 WBC (3.8-10.6) k/uL RBC (3.80-5.40) m/uL Hgb (11.4-16.0) gm/dL Hct (34.0-46.0) % Plt Count (150-450) k/uL Neutrophils # (1.3-7.7) k/uL Sodium (137-145) mmol/L Chloride (98-107) mmol/L BUN (7-17) mg/dL Glucose (74-99) mg/dL POC Glucose (mg/dL) 126 H 146 H 136 H (75-99) mg/dL AST (14-36) U/L Total Protein (6.3-8.2) g/dL Albumin (3.5-5.0) g/dL 06/15/18 06/15/18 06/15/18 Range/Units 11:00 11:18 12:54 WBC (3.8-10.6) k/uL RBC (3.80-5.40) m/uL Hgb (11.4-16.0) gm/dL Hct (34.0-46.0) % Plt Count (150-450) k/uL Neutrophils # (1.3-7.7) k/uL Sodium (137-145) mmol/L Chloride (98-107) mmol/L BUN (7-17) mg/dL Glucose (74-99) mg/dL POC Glucose (mg/dL) 114 H 111 H 120 H (75-99) mg/dL AST (14-36) U/L Total Protein (6.3-8.2) g/dL Albumin (3.5-5.0) g/dL 06/15/18 06/15/18 06/15/18 Range/Units 14:09 15:07 17:37 WBC (3.8-10.6) k/uL RBC (3.80-5.40) m/uL Hgb (11.4-16.0) gm/dL Hct (34.0-46.0) % Plt Count (150-450) k/uL Neutrophils # (1.3-7.7) k/uL Sodium (137-145) mmol/L Chloride (98-107) mmol/L BUN (7-17) mg/dL Glucose (74-99) mg/dL POC Glucose (mg/dL) 156 H 146 H 113 H (75-99) mg/dL AST (14-36) U/L Total Protein (6.3-8.2) g/dL Albumin (3.5-5.0) g/dL 06/15/18 06/16/18 06/16/18 Range/Units 20:23 02:12 04:40 WBC (3.8-10.6) k/uL RBC (3.80-5.40) m/uL Hgb (11.4-16.0) gm/dL Hct (34.0-46.0) % Plt Count (150-450) k/uL Neutrophils # (1.3-7.7) k/uL Sodium 131 L (137-145) mmol/L Chloride 97 L (98-107) mmol/L BUN 25 H (7-17) mg/dL Glucose 110 H (74-99) mg/dL POC Glucose (mg/dL) 173 H 121 H (75-99) mg/dL AST 49 H (14-36) U/L Total Protein 5.8 L (6.3-8.2) g/dL Albumin 3.3 L (3.5-5.0) g/dL 06/16/18 Range/Units 04:40 WBC 17.7 H (3.8-10.6) k/uL RBC 3.45 L (3.80-5.40) m/uL Hgb 10.6 L (11.4-16.0) gm/dL Hct 31.7 L (34.0-46.0) % Plt Count 145 L (150-450) k/uL Neutrophils # 14.5 H (1.3-7.7) k/uL Sodium (137-145) mmol/L Chloride (98-107) mmol/L BUN (7-17) mg/dL Glucose (74-99) mg/dL POC Glucose (mg/dL) (75-99) mg/dL AST (14-36) U/L Total Protein (6.3-8.2) g/dL Albumin (3.5-5.0) g/dL Assessment and Plan Assessment: Assessment #1 status post aortic valve replacement using bioprosthetic valve #2 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
[2018-06-16 07:29] LABS: Glucose,Whole Blood 132 mg/dL (75-99)
[2018-06-16 07:29] LABS: Glucose,Whole Blood 124 mg/dL (75-99)
--- NOTE | 2018-06-16 07:54 | P.PN ---
Subjective Progress Note Date: 06/16/18 Principal diagnosis: severe aortic valve stenosis. Two vessel coronary artery disease.history of hypertension, hyperlipidemia, previous tobacco dependence, mild COPD with preoperative FEV1 63% of predicted, obesity. POD #3 aortic valve replacement with a #23 mm Inspiris [place] bioprosthetic aortic valve. Coronary bypass grafting 2 with reverse saphenous vein graft off the aorta to the first obtuse marginal artery and the right coronary artery with left lower extremity greater saphenous vein endoscopic harvesting. Clip ligation of the left atrial appendage with a #35 mm AtriClip and intraoperative HANNAH. The patient is currently sitting up in a recliner in no acute distress. She remains hemodynamically stable. Does state the pain is controlled with current medication regimen and she did get some sleep last night. Denies shortness of breath. No new concerns. Mediastinal chest tube, Cordis, arterial line, Villegas were discontinued yesterday. Orders were placed to transfer patient to [address] [place] [address] cardiac stepdown unit, however there was no bed availability. Objective - Vital Signs Vital signs: Vital Signs Temp 99.1 F 06/16/18 00:00 Pulse 81 06/16/18 03:00 Resp 20 06/16/18 03:00 BP 122/68 06/16/18 03:00 Pulse Ox 93 L 06/16/18 03:00 Intake & Output 06/15/18 06/16/18 06/16/18 18:59 06:59 18:59 Intake Total 815.738 500 Output Total 705 499 Balance 110.738 1 Intake: IV 205 0.9 pressure bag 45 Lactated Ringers 1,000 ml 160 @ 20 mls/hr IV .Q24H FR[facility]ERIC Rx#:[id number] Intake, IV Titration 10.738 Amount Insulin Regular 100 unit 10.738 In Sodium Chloride 0.9% 100 ml @ Per Protocol IV .Q0M FREDERIC Rx#:[id number] Oral 600 500 Output: Chest Tube Drainage 100 149 Chest Tube Right Pleural/ 100 149 Mediastinal Urine 605 350 Other: Voiding Method Indwelling Catheter # Bowel Movements 1 ABP, PAP, CO, CI - Last Documented Arterial Blood Pressure 121/60 Pulmonary Artery Pressure 32/16 Cardiac Output 5 Cardiac Index 2.3 - Constitutional General appearance: Present: cooperative, no acute distress, obese - Respiratory Details: Lungs sounds diminished bilaterally, left greater than right. Respirations even , nonlabored. Currently on room air with oxygen saturation 92%. Able to achieve 500-750 mL on her incentive spirometry. Weak cough. Right pleural chest tube to continuous wall suction, 75 mL serous drainage overnight, 190 mL in the last 24 hours, no air leak present. - Cardiovascular Details: S1, S2 present. Regular rate and rhythm, sinus rhythm on telemetry. Sternum stable. A/V epicardial pacemakers present, grounded. Palpable peripheral pulses bilaterally. No edema present. No calf pain or tenderness noted. Heart hugger in place with patient demonstrating appropriate use. Antiembolism stockings, SCDs present. - Gastrointestinal Gastrointestinal Comment(s): Abdomen soft, nontender, nondistended. Active bowel sounds present 4 quadrants. Tolerating diet. Positive bowel movement 06/15. - Genitourinary Genitourinary Comment(s): Villegas catheter discontinued yesterday. Positive void for 350 mL. - Integumentary Integumentary Comment(s): Skin is warm and dry with evidence of good perfusion. Anterior chest incision well approximated and covered with dry intact dressing. Left lower extremity EVH site well approximated. - Neurologic Neurologic: Present: CNII-XII intact - Musculoskeletal Musculoskeletal: Present: gait normal, strength equal bilaterally - Psychiatric Psychiatric: Present: A&O x's 3, appropriate affect, intact judgment & insight - Allied health notes Allied health notes reviewed: nursing - Labs CBC & Chem 7: 06/16/18 04:40 06/16/18 04:40 Labs: Abnormal Lab Results - Last 24 Hours (Table) 06/15/18 06/15/18 06/15/18 Range/Units 08:03 09:03 10:23 WBC (3.8-10.6) k/uL RBC (3.80-5.40) m/uL Hgb (11.4-16.0) gm/dL Hct (34.0-46.0) % Plt Count (150-450) k/uL Neutrophils # (1.3-7.7) k/uL Sodium (137-145) mmol/L Chloride (98-107) mmol/L BUN (7-17) mg/dL Glucose (74-99) mg/dL POC Glucose (mg/dL) 126 H 146 H 136 H (75-99) mg/dL AST (14-36) U/L Total Protein (6.3-8.2) g/dL Albumin (3.5-5.0) g/dL 06/15/18 06/15/18 06/15/18 Range/Units 11:00 11:18 12:54 WBC (3.8-10.6) k/uL RBC (3.80-5.40) m/uL Hgb (11.4-16.0) gm/dL Hct (34.0-46.0) % Plt Count (150-450) k/uL Neutrophils # (1.3-7.7) k/uL Sodium (137-145) mmol/L Chloride (98-107) mmol/L BUN (7-17) mg/dL Glucose (74-99) mg/dL POC Glucose (mg/dL) 114 H 111 H 120 H (75-99) mg/dL AST (14-36) U/L Total Protein (6.3-8.2) g/dL Albumin (3.5-5.0) g/dL 06/15/18 06/15/18 06/15/18 Range/Units 14:09 15:07 17:37 WBC (3.8-10.6) k/uL RBC (3.80-5.40) m/uL Hgb (11.4-16.0) gm/dL Hct (34.0-46.0) % Plt Count (150-450) k/uL Neutrophils # (1.3-7.7) k/uL Sodium (137-145) mmol/L Chloride (98-107) mmol/L BUN (7-17) mg/dL Glucose (74-99) mg/dL POC Glucose (mg/dL) 156 H 146 H 113 H (75-99) mg/dL AST (14-36) U/L Total Protein (6.3-8.2) g/dL Albumin (3.5-5.0) g/dL 06/15/18 06/16/18 06/16/18 Range/Units 20:23 02:12 04:40 WBC (3.8-10.6) k/uL RBC (3.80-5.40) m/uL Hgb (11.4-16.0) gm/dL Hct (34.0-46.0) % Plt Count (150-450) k/uL Neutrophils # (1.3-7.7) k/uL Sodium 131 L (137-145) mmol/L Chloride 97 L (98-107) mmol/L BUN 25 H (7-17) mg/dL Glucose 110 H (74-99) mg/dL POC Glucose (mg/dL) 173 H 121 H (75-99) mg/dL AST 49 H (14-36) U/L Total Protein 5.8 L (6.3-8.2) g/dL Albumin 3.3 L (3.5-5.0) g/dL 06/16/18 06/16/18 06/16/18 Range/Units 04:40 07:07 07:26 WBC 17.7 H (3.8-10.6) k/uL RBC 3.45 L (3.80-5.40) m/uL Hgb 10.6 L (11.4-16.0) gm/dL Hct 31.7 L (34.0-46.0) % Plt Count 145 L (150-450) k/uL Neutrophils # 14.5 H (1.3-7.7) k/uL Sodium (137-145) mmol/L Chloride (98-107) mmol/L BUN (7-17) mg/dL Glucose (74-99) mg/dL POC Glucose (mg/dL) 132 H 124 H (75-99) mg/dL AST (14-36) U/L Total Protein (6.3-8.2) g/dL Albumin (3.5-5.0) g/dL - Imaging and Cardiology Chest x-ray: report reviewed, image reviewed Assessment and Plan (1) Severe aortic stenosis Current Visit: Yes Status: Chronic Code(s): I35.0 - NONRHEUMATIC AORTIC ( VALVE) STENOSIS SNOMED Code(s): 98464904 (2) Hypertension Current Visit: Yes Status: Chronic Code(s): I10 - ESSENTIAL (PRIMARY) HYPERTENSION SNOMED Code(s): 58164211 (3) Hyperlipidemia Current Visit: Yes Status: Chronic Code(s): E78.5 - HYPERLIPIDEMIA, UNSPECIFIED SNOMED Code(s): 15271845 (4) Tobacco dependence in remission Current Visit: No Status: Resolved Code(s): F17.201 - NICOTINE DEPENDENCE, UNSPECIFIED, IN REMISSION SNOMED Code(s): 892129165 (5) COPD (chronic obstructive pulmonary disease) Current Visit: Yes Status: Chronic Code(s): J44.9 - CHRONIC OBSTRUCTIVE PULMONARY DISEASE, UNSPECIFIED SNOMED Code(s): 07954614 (6) Obesity Current Visit: Yes Status: Chronic Code(s): E66.9 - OBESITY, UNSPECIFIED SNOMED Code(s): 161431085 (7) CAD (coronary artery disease) Current Visit: Yes Status: Chronic Code(s): I25.10 - ATHSCL HEART DISEASE OF [place] CORONARY ARTERY W/O ANG PCTRS SNOMED Code(s): 03799183 Plan: 1. Continue aspirin, statin, Plavix, ROSE inhibitor, beta francis. Will increase beta francis therapy as tolerated. 2. Encourage incentive spirometry use 10 times every hour while awake. 3. Bronchodilators per pulmonology. 4. Increase activity, ambulate in hallway. PT/OT/cardiac rehab following. 5. Will follow daily labs and chest x-rays. 6. Insulin management per primary care service. 7. Pain controlled with current medication regimen. 8. GI prophylaxis with Protonix. DVT prophylaxis with subcu heparin, SCDs. 9. Will discontinue right pleural chest tube. 10. Transfer to [address] [place] [address] cardiac stepdown unit when bed available. 11. Discharge planning in progress. Anticipate discharge to home with home care Monday 12. More recommendations to follow. Time with Patient: Greater than 30
[2018-06-16] MEDS ORDERED: ACETAMINOPHEN TAB 325 MG TAB PO PRN ×2 (08:00)
[2018-06-16] MEDS: IPRATROPIUM-ALBUTEROL 3 ML NEB INHALATION SCH ×4 (08:02→20:15)
[2018-06-16] MEDS: PANTOPRAZOLE 40 MG TABLET PO SCH (09:42)
[2018-06-16] MEDS: ASPIRIN 325 MG TAB PO SCH (09:43)
[2018-06-16] MEDS: MUPIROCIN 2% OINT 22 GM TUBE NASAL SCH ×2 (09:43→21:33)
[2018-06-16] MEDS: CLOPIDOGREL 75 MG TAB PO SCH (09:43)
[2018-06-16] MEDS: METOPROLOL TARTRATE 25 MG TAB PO SCH ×2 (09:43→21:33)
[2018-06-16] MEDS: ATORVASTATIN 40 MG TAB PO SCH (09:43)
--- NOTE | 2018-06-16 09:49 | P.PN ---
Subjective Progress Note Date: 06/16/18 Principal diagnosis: Status post two-vessel bypass and aortic valve replacement Progress note dated 06/14/2018 72-year-old female, postop day #1 status post aortic valve replacement for severe aortic stenosis and two-vessel bypass grafting. The patient surgery was done by Dr. Jimenez. The patient was extubated just outside the 6 hour window. Currently, she is on a couple liters of oxygen. She's doing relatively well. Chest x-ray shows some mild fluid overload and cardiothoracic we'll probably give her some additional Lasix. The surgeon give her 20 mg of Lasix last night. She has a history of hyperlipidemia hypertension and DJD. She also has a history of obesity. She's doing relatively well. Her catheterization revealed a 70% proximal circumflex lesion and 95% proximal RCA lesion. She's awake and alert. She sitting up in a chair. I did tell her to work hard on incentive spirometry. White count is 19. Hemoglobin 10.8, hematocrit 32.3 and platelet count was normal at 140,000. Sodium 136 potassium 4.4 chloride 104 CO2 25 BUN 13 and creatinine was 0.58. Progress note dated 06/15/2018 72-year-old female, postop day #2, status post aortic valve replacement for severe aortic stenosis and two-vessel bypass grafting. The patient is doing well. She was extubated within the 6 hour window. Currently, she is on O2 2 L by nasal cannula and lactated Ringer's IV at 20 mL an hour as well as an insulin drip at 3 units an hour. She's feeling about 750 mL on her incentive spirometer is sitting up in the chair. He looks reasonably well. She is having pain at the surgical site but short of that, she has no other major complaints. Chest x-rays consistent with small bilateral pleural effusions postoperative changes and some very minimal basilar atelectasis. Progress note dated 06/16/2018 72-year-old female, postop day #3, status post aortic valve replacement for severe aortic stenosis and two-vessel bypass grafting. The patient was doing well. She was extubated within the 6 hour window. Currently, the patient is not receiving any supplemental oxygen. Currently, the patient is not receiving any IV fluids. Chest x-ray shows some bibasilar atelectasis. She's doing okay on of her incentive spirometer. She is doing deep breathing coughing and clearing of secretions. Her chest x-ray has been evaluated. Her labs have been evaluated. I don't think cardiothoracic has seen her as yet today. Objective - Vital Signs Vital signs: Vital Signs Temp 98.6 F 06/16/18 04:00 Pulse 93 06/16/18 08:15 Resp 21 06/16/18 08:00 BP 138/99 06/16/18 08:00 Pulse Ox 93 L 06/16/18 08:00 Intake & Output 06/15/18 06/16/18 06/16/18 18:59 06:59 18:59 Intake Total 815.738 500 Output Total 705 539 0 Balance 110.738 -39 0 Intake: IV 205 0.9 pressure bag 45 Lactated Ringers 1,000 ml 160 @ 20 mls/hr IV .Q24H [facility] Rx#:[id number] Intake, IV Titration 10.738 Amount Insulin Regular 100 unit 10.738 In Sodium Chloride 0.9% 100 ml @ Per Protocol IV .Q0M [facility] Rx#:[id number] Oral 600 500 Output: Chest Tube Drainage 100 189 Chest Tube Right Pleural/ 100 189 Mediastinal Urine 605 350 0 Other: Voiding Method Indwelling Catheter # Voids 1 # Bowel Movements 1 ABP, PAP, CO, CI - Last Documented Arterial Blood Pressure 121/60 Pulmonary Artery Pressure 32/16 Cardiac Output 5 Cardiac Index 2.3 - Exam No acute distress, oriented 3. Not requiring any supplemental oxygen. She is sitting up in the chair. HEENT examination is grossly unremarkable. Mucous membranes are moist. No oral lesions. Neck supple. Full range of motion. No adenopathy thyromegaly or neck vein distention. Cardiovascular examination reveals regular rhythm rate. S1-S2 normal. No S3 or S4. No discernible murmur noted. Heart sounds are distant. Lungs reveal mostly bilateral basilar crackles. Breath sounds are equal bilaterally. A few scattered mild rhonchi are noted. No wheezes or crackles. She does not take deep breaths. Breath sounds are improved compared to yesterday. Abdomen soft bowel sounds are heard. No masses or tenderness. Extremities are intact. No cyanosis clubbing or edema. Skin is without rash or lesion. Neurologic examination is brief but nonfocal. - Labs CBC & Chem 7: 06/16/18 04:40 06/16/18 04:40 Labs: Abnormal Lab Results - Last 24 Hours (Table) 06/15/18 06/15/18 06/15/18 Range/Units 10:23 11:00 11:18 WBC (3.8-10.6) k/uL RBC (3.80-5.40) m/uL Hgb (11.4-16.0) gm/dL Hct (34.0-46.0) % Plt Count (150-450) k/uL Neutrophils # (1.3-7.7) k/uL Sodium (137-145) mmol/L Chloride (98-107) mmol/L BUN (7-17) mg/dL Glucose (74-99) mg/dL POC Glucose (mg/dL) 136 H 114 H 111 H (75-99) mg/dL AST (14-36) U/L Total Protein (6.3-8.2) g/dL Albumin (3.5-5.0) g/dL 06/15/18 06/15/18 06/15/18 Range/Units 12:54 14:09 15:07 WBC (3.8-10.6) k/uL RBC (3.80-5.40) m/uL Hgb (11.4-16.0) gm/dL Hct (34.0-46.0) % Plt Count (150-450) k/uL Neutrophils # (1.3-7.7) k/uL Sodium (137-145) mmol/L Chloride (98-107) mmol/L BUN (7-17) mg/dL Glucose (74-99) mg/dL POC Glucose (mg/dL) 120 H 156 H 146 H (75-99) mg/dL AST (14-36) U/L Total Protein (6.3-8.2) g/dL Albumin (3.5-5.0) g/dL 06/15/18 06/15/18 06/16/18 Range/Units 17:37 20:23 02:12 WBC (3.8-10.6) k/uL RBC (3.80-5.40) m/uL Hgb (11.4-16.0) gm/dL Hct (34.0-46.0) % Plt Count (150-450) k/uL Neutrophils # (1.3-7.7) k/uL Sodium (137-145) mmol/L Chloride (98-107) mmol/L BUN (7-17) mg/dL Glucose (74-99) mg/dL POC Glucose (mg/dL) 113 H 173 H 121 H (75-99) mg/dL AST (14-36) U/L Total Protein (6.3-8.2) g/dL Albumin (3.5-5.0) g/dL 06/16/18 06/16/18 06/16/18 Range/Units 04:40 04:40 07:07 WBC 17.7 H (3.8-10.6) k/uL RBC 3.45 L (3.80-5.40) m/uL Hgb 10.6 L (11.4-16.0) gm/dL Hct 31.7 L (34.0-46.0) % Plt Count 145 L (150-450) k/uL Neutrophils # 14.5 H (1.3-7.7) k/uL Sodium 131 L (137-145) mmol/L Chloride 97 L (98-107) mmol/L BUN 25 H (7-17) mg/dL Glucose 110 H (74-99) mg/dL POC Glucose (mg/dL) 132 H (75-99) mg/dL AST 49 H (14-36) U/L Total Protein 5.8 L (6.3-8.2) g/dL Albumin 3.3 L (3.5-5.0) g/dL 06/16/18 Range/Units 07:26 WBC (3.8-10.6) k/uL RBC (3.80-5.40) m/uL Hgb (11.4-16.0) gm/dL Hct (34.0-46.0) % Plt Count (150-450) k/uL Neutrophils # (1.3-7.7) k/uL Sodium (137-145) mmol/L Chloride (98-107) mmol/L BUN (7-17) mg/dL Glucose (74-99) mg/dL POC Glucose (mg/dL) 124 H (75-99) mg/dL AST (14-36) U/L Total Protein (6.3-8.2) g/dL Albumin (3.5-5.0) g/dL Assessment and Plan Assessment: Assessment Postop day #3, status post three-vessel bypass grafting and aortic valve replacement for severe aortic stenosis Routine postoperative ventilator management Obesity History of hypertension History of hyperlipidemia Vitamin D deficiency Previous history of tobacco use Postoperative bibasilar atelectasis. Plan: Plan dated 06/13/2018 The patient's blood gases will be evaluated and adjusted accordingly. The patient should be placed on DuoNeb every 4 hours [id number]. We'll await the chest x-ray. We'll continue to follow the patient closely and hopefully get the patient extubated within the 6 hour window or sooner. The patient appears to be relatively stable this time. The patient's on the SIMV mode. Additional recommendations and suggestions are forthcoming. Prognosis is guarded. We will continue to follow closely. Blood gases done in the OR show a PaO2 of fluid within 420 a PaCO2 of 39 and a pH of 7.41. No additional labs are back yet and the chest x-ray is currently pending. Plan dated 06/14/2018 Medications labs and x-rays are all reviewed. I did pass on the cardiothoracic that I thought the patient's chest x-ray showed some excess fluid. She would probably benefit from some IV Lasix. She is stable hemodynamically. She was extubated within the 6 hour window or close to it. Labs are reviewed and all looked good. I did encourage her to do deep breathing coughing and clearing of secretions. We also recommend that she use incentive spirometer every hour while awake. Additional recommendations and suggestions are forthcoming. Prognosis is guarded. Critical care time 32 minutes Plan dated 06/15/2018 Chest x-ray, labs, and medications are all reviewed. She is doing reasonably well on the incentive spirometer getting about 750 mL. In addition, recommend deep breathing coughing and clearing of secretions. White count is 17.5 hemoglobin 10.6 hematocrit 31.8 and platelet count 129,000. Sodium is 133 with a potassium of 4.5, chlorides 100 CO2 25 and 9 8 BUN 20 and creatinine of 0.74. The patient is sitting up in the chair. She seems be doing reasonably well. We will continue to follow her closely. Additional recommendations and suggestions are forthcoming. Critical care time 33 minutes Plan dated 06/16/2018 X-ray, labs and medications are all reviewed. White count of 17.7 hemoglobin 10.6 hematocrit 31.7 and platelet count 145,000. Sodium 131 potassium 4.7 chlorides 97 CO2 26, anion gap 8, BUN 25 and creatinine 0.71. The patient will continue to use his incentive spirometer every hour while awake. In addition, the patient will continue with deep breathing coughing and clearing of secretions. She seems to be progressing nicely. We'll await input from cardiothoracic surgery regards to possible transfer out to [address] [place] [address]. Additional recommendations and suggestions are forthcoming. Critical care time 31 minutes Time with Patient: Greater than 30
[2018-06-16] MEDS ORDERED: LISINOPRIL 5 MG TAB PO SCH (12:00)
[2018-06-16 12:08] LABS: Glucose,Whole Blood 105 mg/dL (75-99)
[2018-06-16] MEDS: CHOLECALCIFEROL 1,000 UNIT TAB PO SCH (12:46)
[2018-06-16] MEDS: MULTIVITAMINS, THERA 1 EACH TAB PO SCH (12:47)
[2018-06-16] MEDS: CYANOCOBALAMIN 500 MCG TAB PO SCH (12:47)
[2018-06-16 17:53] LABS: Glucose,Whole Blood 99 mg/dL (75-99)
[2018-06-16 21:29] LABS: Glucose,Whole Blood 117 mg/dL (75-99)
[2018-06-16] MEDS: SENNOSIDES-DOCUSATE SODIUM 1 EACH TAB PO SCH (21:33)
--- NOTE | 2018-06-16 23:08 | P.PN ---
Subjective This is a pleasant 72 years old female with past medical history of hypertension hyperlipidemia, digestive joint disease. Cholecystectomy. With history of severe aortic stenosis and coronary artery disease. He presents because of progressive dyspnea. She is status post 2 vessel bypass grafting with aortic valve replacement. She got intubated currently and managed with the intensive care unit specialist on the case. We've been consulted for medical management. 06/14/2018 pt is s/p aortic valve replacement, and CABG , she is seen in the ICU today , s/ p extubation . she is multiple medications including asprin and plavix, lipitor. pt is been treated for constipation too. on insulin drip . sugar controlled. wbc 19 K. liver enz is mildly elevated and needs to be followed up. 06/15/18 pt is s/p aortic valve replacement, and CABG , she is seen in the ICU today , s/ p extubation . she is multiple medications including asprin and plavix, lipitor. pt is been treated for constipation too. on insulin drip . sugar controlled. wbc 19 K down to 17.5K. . liver enz is mildly elevated and needs to be followed up, they are trending down. 06/15/2018 pt is feeling better today, her pain is better controlled , she is eating well , and had bowel movement . pt has lisinopril but lasix is stopped. pain at surgical site is controlled. CXR: B/L pleural effusion . chest tube is still in place. c/w dual antiplatelet therapy . sugar is controlled. her leukocytosis is reacitive, Na dropped slightly from 133 to 131, keep monitoring Na. surgical and cardiology team are following the case Objective - Vital Signs Vital signs: Vital Signs Temp 98.8 F 06/16/18 09:00 Pulse 97 06/16/18 18:00 Resp 18 06/16/18 16:00 BP 123/71 06/16/18 16:00 Pulse Ox 91 L 06/16/18 16:00 Intake & Output 06/16/18 06/16/18 06/17/18 06:59 18:59 06:59 Intake Total 500 1200 Output Total 539 1500 Balance -39 -300 Weight 106.6 kg Intake: Oral 500 1200 Output: Chest Tube Drainage 189 Chest Tube Right Pleural/ 189 Mediastinal Urine 350 1500 Straight 700 Other: Voiding Method Bedside Commode # Voids 1 ABP, PAP, CO, CI - Last Documented Arterial Blood Pressure 121/60 Pulmonary Artery Pressure 32/16 Cardiac Output 5 Cardiac Index 2.3 - Exam GENERAL: The patient is alert and oriented x3, not in any acute distress. Well developed, well nourished. HEENT: Pupils are round and equally reacting to light. EOMI. No scleral icterus. No conjunctival pallor. Normocephalic, atraumatic. No pharyngeal erythema. No thyromegaly. -CARDIOVASCULAR: S1 and S2 present. No murmurs, rubs, or gallops. incision site is clean and healing PULMONARY: Chest is clear to auscultation, no wheezing or crackles. ABDOMEN: Soft, nontender, nondistended, normoactive bowel sounds. No palpable organomegaly. MUSCULOSKELETAL: No joint swelling or deformity. EXTREMITIES: No cyanosis, clubbing, or pedal edema. NEUROLOGICAL: Gross neurological examination did not reveal any focal deficits. SKIN: No rashes. - Labs CBC & Chem 7: 06/16/18 04:40 06/16/18 04:40 Labs: Abnormal Lab Results - Last 24 Hours (Table) 06/16/18 06/16/18 06/16/18 Range/Units 02:12 04:40 04:40 WBC 17.7 H (3.8-10.6) k/uL RBC 3.45 L (3.80-5.40) m/uL Hgb 10.6 L (11.4-16.0) gm/dL Hct 31.7 L (34.0-46.0) % Plt Count 145 L (150-450) k/uL Neutrophils # 14.5 H (1.3-7.7) k/uL Sodium 131 L (137-145) mmol/L Chloride 97 L (98-107) mmol/L BUN 25 H (7-17) mg/dL Glucose 110 H (74-99) mg/dL POC Glucose (mg/dL) 121 H (75-99) mg/dL AST 49 H (14-36) U/L Total Protein 5.8 L (6.3-8.2) g/dL Albumin 3.3 L (3.5-5.0) g/dL 06/16/18 06/16/18 06/16/18 Range/Units 07:07 07:26 12:01 WBC (3.8-10.6) k/uL RBC (3.80-5.40) m/uL Hgb (11.4-16.0) gm/dL Hct (34.0-46.0) % Plt Count (150-450) k/uL Neutrophils # (1.3-7.7) k/uL Sodium (137-145) mmol/L Chloride (98-107) mmol/L BUN (7-17) mg/dL Glucose (74-99) mg/dL POC Glucose (mg/dL) 132 H 124 H 105 H (75-99) mg/dL AST (14-36) U/L Total Protein (6.3-8.2) g/dL Albumin (3.5-5.0) g/dL Assessment and Plan Assessment: Severe aortic stenosis, with two-vessel coronary artery disease status post bypass grafting and aortic valve replacement Status post intubation, she is on vent management by the critical care unit team. got extubated on 06/14/18 hyponatremia Essential hypertension Hyperlipidemia History of degenerative joint disease. Plan: This is a 72 years female who presents for aortic valve replacement and CABG. Labs and medication refills. Continue with the same treatment. Continue symptomatic treatment. Resume home medication. Monitor lytes and vitals. GI and DVT prophylaxis. The management as per critical care team. Further recommendations based on the clinical course of the patient
[2018-06-17] MEDS: KETOROLAC 30 MG/ML 1 ML VIAL IVP SCH ×4 (00:29→19:27)
[2018-06-17] MEDS: INSULIN ASPART 100 UNIT/ML 1 ML 10 ML VIAL SQ SCH ×5 (02:00→21:53)
[2018-06-17 05:42] LABS: Basophils # (A) 0.1 k/uL (0-0.2); Basophils % (A) 0 %; Eosinophils # (A) 0.5 k/uL (0-0.7); Eosinophils % (A) 3 %; HCT 33.2 % (34.0-46.0); HGB 10.9 gm/dL (11.4-16.0); Lymphocytes # (A) 2.6 k/uL (1.0-4.8); Lymphocytes % (A) 17 %; MCH 30.1 pg (25.0-35.0); MCHC 32.7 g/dL (31.0-37.0); MCV 91.8 fL (80.0-100.0); Mean Platelet Volume 8.4; Monocytes % (A) 6 %; Neutrophils # (A) 11.2 k/uL (1.3-7.7); Neutrophils % (A) 72 %; Platelet Count 197 k/uL (150-450); RBC 3.62 m/uL (3.80-5.40); RDW 13.6 % (11.5-15.5); WBC 15.6 k/uL (3.8-10.6)
[2018-06-17 06:01] LABS: Albumin 3.2 g/dL (3.5-5.0); Calcium 9.7 mg/dL (8.4-10.2); Potassium 4.7 mmol/L (3.5-5.1); Total Bilirubin 0.9 mg/dL (0.2-1.3); Total Protein 5.7 g/dL (6.3-8.2)
[2018-06-17] MEDS: HEPARIN SODIUM,PORCINE 5,000 UNIT/ML 1 ML VIAL SQ SCH ×3 (06:47→21:53)
--- NOTE | 2018-06-17 07:46 | P.PN ---
Subjective Progress Note Date: 06/17/18 Principal diagnosis: Mitral valve repair This is a pleasant 72-year-old female patient who sees Dr. Bergeron as an outpatient who was admitted to the hospital yesterday and underwent open heart surgery where the patient received aortic valve replacement using bioprosthetic valve #23 along with coronary artery bypass grafting 2 where she received reverse SVG to OM and reverse SVG to RCA. This is postoperative patient day #4. The patient was extubated on the same day of the surgery. She remains hemodynamically stable and not requiring any vasopressors. She remains in normal sinus mechanism with some PVCs. Overall she looks very comfortable, sitting in the chair, doesn't look in any distress. Urine output is marginal. She has been receiving Lasix IV and he seems to be helpful. The hemoglobin continues to be stable. The kidney function continues to be stable. She continues to be on dual antiplatelet therapy along with a statin. Objective - Vital Signs Vital signs: Vital Signs Temp 98.7 F 06/17/18 04:00 Pulse 87 06/17/18 05:00 Resp 20 06/17/18 04:00 BP 126/62 06/17/18 00:00 Pulse Ox 95 06/17/18 04:00 Intake & Output 06/16/18 06/17/18 06/17/18 18:59 06:59 18:59 Intake Total 1200 Output Total 1500 1650 Balance -300 -1650 Weight 106.6 kg Intake: Oral 1200 Output: Urine 1500 1650 Straight 700 Other: Voiding Method Bedside Commode Toilet # Voids 1 # Bowel Movements 1 ABP, PAP, CO, CI - Last Documented Arterial Blood Pressure 121/60 Pulmonary Artery Pressure 32/16 Cardiac Output 5 Cardiac Index 2.3 - Constitutional General appearance: Present: no acute distress - Respiratory Respiratory: bilateral: CTA - Cardiovascular Rhythm: regular Heart sounds: normal: S1, S2 - Labs CBC & Chem 7: 06/17/18 05:01 06/17/18 05:01 Labs: Abnormal Lab Results - Last 24 Hours (Table) 06/16/18 06/16/18 06/17/18 Range/Units 12:01 21:27 05:01 WBC 15.6 H (3.8-10.6) k/uL RBC 3.62 L (3.80-5.40) m/uL Hgb 10.9 L (11.4-16.0) gm/dL Hct 33.2 L (34.0-46.0) % Neutrophils # 11.2 H (1.3-7.7) k/uL Sodium (137-145) mmol/L BUN (7-17) mg/dL Glucose (74-99) mg/dL POC Glucose (mg/dL) 105 H 117 H (75-99) mg/dL Total Protein (6.3-8.2) g/dL Albumin (3.5-5.0) g/dL 06/17/18 Range/Units 05:01 WBC (3.8-10.6) k/uL RBC (3.80-5.40) m/uL Hgb (11.4-16.0) gm/dL Hct (34.0-46.0) % Neutrophils # (1.3-7.7) k/uL Sodium 133 L (137-145) mmol/L BUN 27 H (7-17) mg/dL Glucose 106 H (74-99) mg/dL POC Glucose (mg/dL) (75-99) mg/dL Total Protein 5.7 L (6.3-8.2) g/dL Albumin 3.2 L (3.5-5.0) g/dL Assessment and Plan Assessment: Assessment #1 status post aortic valve replacement using bioprosthetic valve #2 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
--- NOTE | 2018-06-17 08:23 | P.PN ---
Subjective Progress Note Date: 06/17/18 Principal diagnosis: severe aortic valve stenosis. Two vessel coronary artery disease.history of hypertension, hyperlipidemia, previous tobacco dependence, mild COPD with preoperative FEV1 63% of predicted, left internal carotid artery stenosis 50-79% , obesity. POD #4 aortic valve replacement with a #23 mm Inspiris [place] bioprosthetic aortic valve. Coronary bypass grafting 2 with reverse saphenous vein graft off the aorta to the first obtuse marginal artery and the right coronary artery with left lower extremity greater saphenous vein endoscopic harvesting. Clip ligation of the left atrial appendage with a #35 mm AtriClip and intraoperative HANNAH. The patient is currently sitting up in a recliner in no acute distress. She remains hemodynamically stable. States her pain is controlled current medication regimen, especially after having chest tube removed yesterday. Denies shortness of breath. No new concerns. Right pleural chest tube discontinued yesterday. Orders were placed to transfer patient to [address] [place] [address] cardiac stepdown unit, however there was no bed availability. Objective - Vital Signs Vital signs: Vital Signs Temp 98.7 F 06/17/18 04:00 Pulse 87 06/17/18 05:00 Resp 20 06/17/18 04:00 BP 126/62 06/17/18 00:00 Pulse Ox 95 06/17/18 04:00 Intake & Output 06/16/18 06/17/18 06/17/18 18:59 06:59 18:59 Intake Total 1200 Output Total 1500 1650 Balance -300 -1650 Weight 106.6 kg Intake: Oral 1200 Output: Urine 1500 1650 Straight 700 Other: Voiding Method Bedside Commode Toilet # Voids 1 # Bowel Movements 1 ABP, PAP, CO, CI - Last Documented Arterial Blood Pressure 121/60 Pulmonary Artery Pressure 32/16 Cardiac Output 5 Cardiac Index 2.3 - Constitutional General appearance: Present: cooperative, no acute distress, obese - Respiratory Details: Lungs sounds diminished bilaterally. Respirations even, nonlabored. Currently on room air with oxygen saturation 95%. Able to achieve 750 mL on her incentive spirometry. Strong cough. - Cardiovascular Details: S1, S2 present. Regular rate and rhythm, sinus rhythm on telemetry. Sternum stable. A/V epicardial pacemakers present, grounded. Palpable peripheral pulses bilaterally. No edema present. No calf pain or tenderness noted. Heart hugger in place with patient demonstrating appropriate use. Antiembolism stockings, SCDs present. - Gastrointestinal Gastrointestinal Comment(s): Abdomen soft, nontender, nondistended. Active bowel sounds present 4 quadrants. Tolerating diet. Positive bowel movement 06/17. - Genitourinary Genitourinary Comment(s): Patient needs to be straight cathed yesterday for 700 mL. Since then she has been able to void on her own, total 750 mL overnight. - Integumentary Integumentary Comment(s): Skin is warm and dry with evidence of good perfusion. Anterior chest incision well approximated and covered with dry intact dressing. Left lower extremity EVH site well approximated. - Neurologic Neurologic: Present: CNII-XII intact - Musculoskeletal Musculoskeletal: Present: gait normal, strength equal bilaterally - Psychiatric Psychiatric: Present: A&O x's 3, appropriate affect, intact judgment & insight - Allied health notes Allied health notes reviewed: nursing - Labs CBC & Chem 7: 06/17/18 05:01 06/17/18 05:01 Labs: Abnormal Lab Results - Last 24 Hours (Table) 06/16/18 06/16/18 06/17/18 Range/Units 12:01 21:27 05:01 WBC 15.6 H (3.8-10.6) k/uL RBC 3.62 L (3.80-5.40) m/uL Hgb 10.9 L (11.4-16.0) gm/dL Hct 33.2 L (34.0-46.0) % Neutrophils # 11.2 H (1.3-7.7) k/uL Sodium (137-145) mmol/L BUN (7-17) mg/dL Glucose (74-99) mg/dL POC Glucose (mg/dL) 105 H 117 H (75-99) mg/dL Total Protein (6.3-8.2) g/dL Albumin (3.5-5.0) g/dL 06/17/18 Range/Units 05:01 WBC (3.8-10.6) k/uL RBC (3.80-5.40) m/uL Hgb (11.4-16.0) gm/dL Hct (34.0-46.0) % Neutrophils # (1.3-7.7) k/uL Sodium 133 L (137-145) mmol/L BUN 27 H (7-17) mg/dL Glucose 106 H (74-99) mg/dL POC Glucose (mg/dL) (75-99) mg/dL Total Protein 5.7 L (6.3-8.2) g/dL Albumin 3.2 L (3.5-5.0) g/dL - Imaging and Cardiology Chest x-ray: pending Assessment and Plan (1) Severe aortic stenosis Current Visit: Yes Status: Chronic Code(s): I35.0 - NONRHEUMATIC AORTIC ( VALVE) STENOSIS SNOMED Code(s): 93434226 (2) Hypertension Current Visit: Yes Status: Chronic Code(s): I10 - ESSENTIAL (PRIMARY) HYPERTENSION SNOMED Code(s): 63627375 (3) Hyperlipidemia Current Visit: Yes Status: Chronic Code(s): E78.5 - HYPERLIPIDEMIA, UNSPECIFIED SNOMED Code(s): 71541082 (4) Tobacco dependence in remission Current Visit: No Status: Resolved Code(s): F17.201 - NICOTINE DEPENDENCE, UNSPECIFIED, IN REMISSION SNOMED Code(s): 629750993 (5) COPD (chronic obstructive pulmonary disease) Current Visit: Yes Status: Chronic Code(s): J44.9 - CHRONIC OBSTRUCTIVE PULMONARY DISEASE, UNSPECIFIED SNOMED Code(s): 12416190 (6) Obesity Current Visit: Yes Status: Chronic Code(s): E66.9 - OBESITY, UNSPECIFIED SNOMED Code(s): 108516414 (7) CAD (coronary artery disease) Current Visit: Yes Status: Chronic Code(s): I25.10 - ATHSCL HEART DISEASE OF [place] CORONARY ARTERY W/O ANG PCTRS SNOMED Code(s): 23499047 Plan: 1. Continue aspirin, statin, Plavix, ROSE inhibitor, beta francis. Will increase beta francis therapy as tolerated. Increased to TID today. 2. Encourage incentive spirometry use 10 times every hour while awake. 3. Bronchodilators per pulmonology. 4. Increase activity, ambulate in hallway. PT/OT/cardiac rehab following. 5. Will follow daily labs and chest x-rays. 6. Insulin management per primary care service. 7. Pain controlled with current medication regimen. 8. GI prophylaxis with Protonix. DVT prophylaxis with subcu heparin, SCDs. 9. Transfer to [address] [place] [address] cardiac stepdown unit when bed available. 10. Discharge planning in progress. Anticipate discharge to home with home care Monday 11. More recommendations to follow. Time with Patient: Greater than 30
[2018-06-17] MEDS: IPRATROPIUM-ALBUTEROL 3 ML NEB INHALATION SCH ×4 (08:32→20:20)
--- NOTE | 2018-06-17 08:46 | XR ---
EXAMINATION TYPE: XR chest 2V DATE OF EXAM: 06/17/2018 HISTORY: post cardiac surgery. REFERENCE: Previous study dated 06/16/2018. FINDINGS: There has been a midline sternotomy. The patient's right pleural drain has been removed. No definite pneumothorax is identified. The heart is enlarged. There continues to be bibasilar airspace disease but this is improved on the l eft. There is mild vascular congestion without bimal edema. I suspect small effusions. IMPRESSION: 1. NO DEFINITE PNEUMOTHORAX. 2. IMPROVED BIBASILAR AIRSPACE DISEASE. 3. SMALL, BILATERAL EFFUSIONS.
--- NOTE | 2018-06-17 08:56 | P.PN ---
Subjective Progress Note Date: 06/17/18 Principal diagnosis: Status post two-vessel bypass and aortic valve replacement Progress note dated 06/14/2018 72-year-old female, postop day #1 status post aortic valve replacement for severe aortic stenosis and two-vessel bypass grafting. The patient surgery was done by Dr. Jimenez. The patient was extubated just outside the 6 hour window. Currently, she is on a couple liters of oxygen. She's doing relatively well. Chest x-ray shows some mild fluid overload and cardiothoracic we'll probably give her some additional Lasix. The surgeon give her 20 mg of Lasix last night. She has a history of hyperlipidemia hypertension and DJD. She also has a history of obesity. She's doing relatively well. Her catheterization revealed a 70% proximal circumflex lesion and 95% proximal RCA lesion. She's awake and alert. She sitting up in a chair. I did tell her to work hard on incentive spirometry. White count is 19. Hemoglobin 10.8, hematocrit 32.3 and platelet count was normal at 140,000. Sodium 136 potassium 4.4 chloride 104 CO2 25 BUN 13 and creatinine was 0.58. Progress note dated 06/15/2018 72-year-old female, postop day #2, status post aortic valve replacement for severe aortic stenosis and two-vessel bypass grafting. The patient is doing well. She was extubated within the 6 hour window. Currently, she is on O2 2 L by nasal cannula and lactated Ringer's IV at 20 mL an hour as well as an insulin drip at 3 units an hour. She's feeling about 750 mL on her incentive spirometer is sitting up in the chair. He looks reasonably well. She is having pain at the surgical site but short of that, she has no other major complaints. Chest x-rays consistent with small bilateral pleural effusions postoperative changes and some very minimal basilar atelectasis. Progress note dated 06/16/2018 72-year-old female, postop day #3, status post aortic valve replacement for severe aortic stenosis and two-vessel bypass grafting. The patient was doing well. She was extubated within the 6 hour window. Currently, the patient is not receiving any supplemental oxygen. Currently, the patient is not receiving any IV fluids. Chest x-ray shows some bibasilar atelectasis. She's doing okay on of her incentive spirometer. She is doing deep breathing coughing and clearing of secretions. Her chest x-ray has been evaluated. Her labs have been evaluated. I don't think cardiothoracic has seen her as yet today. Progress note dated 06/17/2018 72-year-old female postop day #4, status post aortic valve replacement for severe aortic stenosis and two-vessel bypass grafting for CAD. Currently, the patient's doing well. The patient's on no supplemental oxygen at this time. In addition, she is not receiving any supplemental IV fluids. The patient is ready for a 2 view chest x-ray. The patient denies any chest pain difficulty breathing coughing wheezing phlegm production or any other complaints for that matter. She's not doing as well as I expect on the incentive spirometer but I have asked her to continue to work with it. In addition, I asked her to decrease breathing cough and clear secretions. Objective - Vital Signs Vital signs: Vital Signs Temp 98.7 F 06/17/18 04:00 Pulse 87 06/17/18 05:00 Resp 20 06/17/18 04:00 BP 126/62 06/17/18 00:00 Pulse Ox 95 06/17/18 04:00 Intake & Output 06/16/18 06/17/18 06/17/18 18:59 06:59 18:59 Intake Total 1200 Output Total 1500 1650 Balance -300 -1650 Weight 106.6 kg Intake: Oral 1200 Output: Urine 1500 1650 Straight 700 Other: Voiding Method Bedside Commode Toilet # Voids 1 # Bowel Movements 1 ABP, PAP, CO, CI - Last Documented Arterial Blood Pressure 121/60 Pulmonary Artery Pressure 32/16 Cardiac Output 5 Cardiac Index 2.3 - Exam No acute distress, oriented 3. Not requiring any supplemental oxygen. She is sitting up in the chair. HEENT examination is grossly unremarkable. Mucous membranes are moist. No oral lesions. Neck supple. Full range of motion. No adenopathy thyromegaly or neck vein distention. Cardiovascular examination reveals regular rhythm rate. S1-S2 normal. No S3 or S4. No discernible murmur noted. Heart sounds are distant. Lungs reveal mostly clear breath sounds. A few scattered rhonchi and crackles appreciated. Breath sounds are certainly improved compared to yesterday's exam. Breath sounds are equal bilaterally. There are no wheezes. Abdomen soft bowel sounds are heard. No masses or tenderness. Extremities are intact. No cyanosis clubbing or edema. Skin is without rash or lesion. Neurologic examination is brief but nonfocal. - Labs CBC & Chem 7: 06/17/18 05:01 06/17/18 05:01 Labs: Abnormal Lab Results - Last 24 Hours (Table) 06/16/18 06/16/18 06/17/18 Range/Units 12:01 21:27 05:01 WBC 15.6 H (3.8-10.6) k/uL RBC 3.62 L (3.80-5.40) m/uL Hgb 10.9 L (11.4-16.0) gm/dL Hct 33.2 L (34.0-46.0) % Neutrophils # 11.2 H (1.3-7.7) k/uL Sodium (137-145) mmol/L BUN (7-17) mg/dL Glucose (74-99) mg/dL POC Glucose (mg/dL) 105 H 117 H (75-99) mg/dL Total Protein (6.3-8.2) g/dL Albumin (3.5-5.0) g/dL 06/17/18 Range/Units 05:01 WBC (3.8-10.6) k/uL RBC (3.80-5.40) m/uL Hgb (11.4-16.0) gm/dL Hct (34.0-46.0) % Neutrophils # (1.3-7.7) k/uL Sodium 133 L (137-145) mmol/L BUN 27 H (7-17) mg/dL Glucose 106 H (74-99) mg/dL POC Glucose (mg/dL) (75-99) mg/dL Total Protein 5.7 L (6.3-8.2) g/dL Albumin 3.2 L (3.5-5.0) g/dL Assessment and Plan Assessment: Assessment Postop day #4, status post three-vessel bypass grafting and aortic valve replacement for severe aortic stenosis Routine postoperative ventilator management Obesity History of hypertension History of hyperlipidemia Vitamin D deficiency Previous history of tobacco use Postoperative bibasilar atelectasis. Plan: Plan dated 06/13/2018 The patient's blood gases will be evaluated and adjusted accordingly. The patient should be placed on DuoNeb every 4 hours [id number]. We'll await the chest x-ray. We'll continue to follow the patient closely and hopefully get the patient extubated within the 6 hour window or sooner. The patient appears to be relatively stable this time. The patient's on the SIMV mode. Additional recommendations and suggestions are forthcoming. Prognosis is guarded. We will continue to follow closely. Blood gases done in the OR show a PaO2 of fluid within 420 a PaCO2 of 39 and a pH of 7.41. No additional labs are back yet and the chest x-ray is currently pending. Plan dated 06/14/2018 Medications labs and x-rays are all reviewed. I did pass on the cardiothoracic that I thought the patient's chest x-ray showed some excess fluid. She would probably benefit from some IV Lasix. She is stable hemodynamically. She was extubated within the 6 hour window or close to it. Labs are reviewed and all looked good. I did encourage her to do deep breathing coughing and clearing of secretions. We also recommend that she use incentive spirometer every hour while awake. Additional recommendations and suggestions are forthcoming. Prognosis is guarded. Critical care time 32 minutes Plan dated 06/15/2018 Chest x-ray, labs, and medications are all reviewed. She is doing reasonably well on the incentive spirometer getting about 750 mL. In addition, recommend deep breathing coughing and clearing of secretions. White count is 17.5 hemoglobin 10.6 hematocrit 31.8 and platelet count 129,000. Sodium is 133 with a potassium of 4.5, chlorides 100 CO2 25 and 9 8 BUN 20 and creatinine of 0.74. The patient is sitting up in the chair. She seems be doing reasonably well. We will continue to follow her closely. Additional recommendations and suggestions are forthcoming. Critical care time 33 minutes Plan dated 06/16/2018 X-ray, labs and medications are all reviewed. White count of 17.7 hemoglobin 10.6 hematocrit 31.7 and platelet count 145,000. Sodium 131 potassium 4.7 chlorides 97 CO2 26, anion gap 8, BUN 25 and creatinine 0.71. The patient will continue to use his incentive spirometer every hour while awake. In addition, the patient will continue with deep breathing coughing and clearing of secretions. She seems to be progressing nicely. We'll await input from cardiothoracic surgery regards to possible transfer out to [facility]. Additional recommendations and suggestions are forthcoming. Critical care time 31 minutes Plan dated 06/17/2018 We will await the results of the 2 view chest x-ray. Currently, the patient is not requiring any supplemental oxygen his saturations are good. We'll recommend that she continue using the incentive spirometer every hour while awake and continue to deep breathe cough and clear secretions. Chest tubes are currently out. Wires are still in place. White count is 15.6, hemoglobin 10.9 , hematocrit 33.2 and platelet count 197,000. Sodium is 133 with a potassium of 4.7 chlorides 99 CO2 28 anion gap 6 BUN 27 and a creatinine of 0.79. Medications are reviewed. Microbiologic studies are currently negative. Critical care time 32 minutes Time with Patient: Greater than 30
[2018-06-17 08:57] LABS: Glucose,Whole Blood 124 mg/dL (75-99)
[2018-06-17] MEDS: PANTOPRAZOLE 40 MG TABLET PO SCH (09:44)
[2018-06-17] MEDS: METOPROLOL TARTRATE 25 MG TAB PO SCH ×3 (09:45→21:53)
[2018-06-17] MEDS: ASPIRIN 325 MG TAB PO SCH (09:45)
[2018-06-17] MEDS: ATORVASTATIN 40 MG TAB PO SCH (09:45)
[2018-06-17] MEDS: CLOPIDOGREL 75 MG TAB PO SCH (09:45)
[2018-06-17 10:16] VITALS: RESP 17
[2018-06-17 12:23] LABS: Glucose,Whole Blood 98 mg/dL (75-99)
[2018-06-17] MEDS ORDERED: LOSARTAN 50 MG TAB PO SCH (12:45)
[2018-06-17] MEDS: MULTIVITAMINS, THERA 1 EACH TAB PO SCH (14:35)
[2018-06-17] MEDS: CYANOCOBALAMIN 500 MCG TAB PO SCH (14:35)
[2018-06-17] MEDS: CHOLECALCIFEROL 1,000 UNIT TAB PO SCH (14:35)
[2018-06-17 17:04] LABS: Glucose,Whole Blood 115 mg/dL (75-99)
[2018-06-17 21:14] LABS: Glucose,Whole Blood 131 mg/dL (75-99)
[2018-06-17] MEDS: SENNOSIDES-DOCUSATE SODIUM 1 EACH TAB PO SCH (21:52)
[2018-06-18] MEDS: KETOROLAC 30 MG/ML 1 ML VIAL IVP SCH ×2 (01:42→06:39)
[2018-06-18] MEDS: INSULIN ASPART 100 UNIT/ML 1 ML 10 ML VIAL SQ SCH ×2 (01:47→07:46)
[2018-06-18 01:54] LABS: Glucose,Whole Blood 109 mg/dL (75-99)
[2018-06-18 05:57] LABS: Basophils # (A) 0.1 k/uL (0-0.2); Basophils % (A) 0 %; Eosinophils # (A) 0.6 k/uL (0-0.7); Eosinophils % (A) 4 %; HGB 10.4 gm/dL (11.4-16.0); Lymphocytes # (A) 2.7 k/uL (1.0-4.8); Lymphocytes % (A) 19 %; MCH 30.4 pg (25.0-35.0); MCHC 32.7 g/dL (31.0-37.0); MCV 93.1 fL (80.0-100.0); Mean Platelet Volume 9.3; Monocytes # (A) 1.6 k/uL (0-1.0); Monocytes % (A) 11 %; Neutrophils # (A) 9.3 k/uL (1.3-7.7); Neutrophils % (A) 64 %; Platelet Count 250 k/uL (150-450); RBC 3.43 m/uL (3.80-5.40); RDW 13.4 % (11.5-15.5); WBC 14.4 k/uL (3.8-10.6)
[2018-06-18] MEDS: HEPARIN SODIUM,PORCINE 5,000 UNIT/ML 1 ML VIAL SQ SCH (06:41)
[2018-06-18 06:47] VITALS: BP 135/78; TEMP 97.6
[2018-06-18 07:23] LABS: Albumin 2.9 g/dL (3.5-5.0); Calcium 9.4 mg/dL (8.4-10.2); Potassium 4.9 mmol/L (3.5-5.1); Total Bilirubin 0.8 mg/dL (0.2-1.3); Total Protein 5.6 g/dL (6.3-8.2)
[2018-06-18 07:26] LABS: Glucose,Whole Blood 114 mg/dL (75-99)
[2018-06-18] MEDS ORDERED: FUROSEMIDE 10 MG/ML 2 ML VIAL IV ONE (07:31)
--- NOTE | 2018-06-18 07:31 | P.PN ---
Subjective Progress Note Date: 06/18/18 Principal diagnosis: Mitral valve repair This is a pleasant 72-year-old female patient who sees Dr. Bergeron as an outpatient who was admitted to the hospital yesterday and underwent open heart surgery where the patient received aortic valve replacement using bioprosthetic valve #23 along with coronary artery bypass grafting 2 where she received reverse SVG to OM and reverse SVG to RCA. This is postoperative patient day #5. The patient was extubated on the same day of the surgery. She remains hemodynamically stable and not requiring any vasopressors. She remains in normal sinus mechanism with some PVCs. Overall she looks very comfortable, sitting in the chair, doesn't look in any distress. The hemoglobin continues to be stable. The kidney function continues to be stable. She continues to be on dual antiplatelet therapy along with a statin. Objective - Vital Signs Vital signs: Vital Signs Temp 97.6 F 06/18/18 06:09 Pulse 80 06/17/18 16:11 Resp 17 06/17/18 08:00 BP 135/78 06/18/18 06:09 Pulse Ox 95 06/18/18 06:09 Intake & Output 06/17/18 06/18/18 06/18/18 18:59 06:59 18:59 Intake Total 400 Output Total 800 600 Balance -800 -200 Weight 105.5 kg Intake: Oral 400 Output: Urine 800 600 Other: Voiding Method Toilet Toilet # Voids 3 0 # Bowel Movements 2 ABP, PAP, CO, CI - Last Documented Arterial Blood Pressure 121/60 Pulmonary Artery Pressure 32/16 Cardiac Output 5 Cardiac Index 2.3 - Constitutional General appearance: Present: no acute distress - Respiratory Respiratory: bilateral: CTA - Cardiovascular Rhythm: regular Heart sounds: normal: S1, S2 - Labs CBC & Chem 7: 06/18/18 04:52 06/18/18 04:52 Labs: Abnormal Lab Results - Last 24 Hours (Table) 06/17/18 06/17/18 06/17/18 Range/Units 07:28 16:52 21:03 WBC (3.8-10.6) k/uL RBC (3.80-5.40) m/uL Hgb (11.4-16.0) gm/dL Hct (34.0-46.0) % Neutrophils # (1.3-7.7) k/uL Monocytes # (0-1.0) k/uL Sodium (137-145) mmol/L BUN (7-17) mg/dL Glucose (74-99) mg/dL POC Glucose (mg/dL) 124 H 115 H 131 H (75-99) mg/dL Total Protein (6.3-8.2) g/dL Albumin (3.5-5.0) g/dL 06/18/18 06/18/18 06/18/18 Range/Units 01:41 04:52 04:52 WBC 14.4 H (3.8-10.6) k/uL RBC 3.43 L (3.80-5.40) m/uL Hgb 10.4 L (11.4-16.0) gm/dL Hct 32.0 L (34.0-46.0) % Neutrophils # 9.3 H (1.3-7.7) k/uL Monocytes # 1.6 H (0-1.0) k/uL Sodium 136 L (137-145) mmol/L BUN 25 H (7-17) mg/dL Glucose 105 H (74-99) mg/dL POC Glucose (mg/dL) 109 H (75-99) mg/dL Total Protein 5.6 L (6.3-8.2) g/dL Albumin 2.9 L (3.5-5.0) g/dL 06/18/18 Range/Units 07:14 WBC (3.8-10.6) k/uL RBC (3.80-5.40) m/uL Hgb (11.4-16.0) gm/dL Hct (34.0-46.0) % Neutrophils # (1.3-7.7) k/uL Monocytes # (0-1.0) k/uL Sodium (137-145) mmol/L BUN (7-17) mg/dL Glucose (74-99) mg/dL POC Glucose (mg/dL) 114 H (75-99) mg/dL Total Protein (6.3-8.2) g/dL Albumin (3.5-5.0) g/dL Assessment and Plan Assessment: Assessment #1 status post aortic valve replacement using bioprosthetic valve #2 status post coronary artery that is grafting 2 as described above Plan #1 continue the current medical regimen including dual antiplatelet therapy #2 follow-up on the chest x-ray #3 monitor the hemoglobin and kidney function #4 monitor the urine output #5 possible discharge later on today.
--- NOTE | 2018-06-18 07:38 | P.PN ---
Subjective Progress Note Date: 06/18/18 Principal diagnosis: severe aortic valve stenosis. Two vessel coronary artery disease.history of hypertension, hyperlipidemia, previous tobacco dependence, mild COPD with preoperative FEV1 63% of predicted, left internal carotid artery stenosis 50-79% , obesity. POD #5 aortic valve replacement with a #23 mm Inspiris [place] bioprosthetic aortic valve. Coronary bypass grafting 2 with reverse saphenous vein graft off the aorta to the first obtuse marginal artery and the right coronary artery with left lower extremity greater saphenous vein endoscopic harvesting. Clip ligation of the left atrial appendage with a #35 mm AtriClip and intraoperative HANNAH. The patient is currently sitting up in a recliner in no acute distress. She remains hemodynamically stable. States her pain is controlled current medication regimen. Denies shortness of breath. No new concerns. Orders were placed to transfer patient to [address] [place] [address] cardiac stepdown unit, however there was no bed availability. She has been ambulating in the hallway with standby assist. States she feels ready to go home. Objective - Vital Signs Vital signs: Vital Signs Temp 97.6 F 06/18/18 06:09 Pulse 80 06/17/18 16:11 Resp 17 06/17/18 08:00 BP 135/78 06/18/18 06:09 Pulse Ox 95 06/18/18 06:09 Intake & Output 06/17/18 06/18/18 06/18/18 18:59 06:59 18:59 Intake Total 400 Output Total 800 600 Balance -800 -200 Weight 105.5 kg Intake: Oral 400 Output: Urine 800 600 Other: Voiding Method Toilet Toilet # Voids 3 0 # Bowel Movements 2 ABP, PAP, CO, CI - Last Documented Arterial Blood Pressure 121/60 Pulmonary Artery Pressure 32/16 Cardiac Output 5 Cardiac Index 2.3 - Constitutional General appearance: Present: cooperative, no acute distress, obese - Respiratory Details: Lungs sounds diminished bilaterally. Respirations even, nonlabored. Currently on room air with oxygen saturation 95%. Able to achieve 500-750 mL on her incentive spirometry. Strong cough. - Cardiovascular Details: S1, S2 present. Regular rate and rhythm, sinus rhythm on telemetry. Sternum stable. A/V epicardial pacemakers present, grounded. Palpable peripheral pulses bilaterally. Bilateral lower extremity edema present. No calf pain or tenderness noted. Heart hugger in place with patient demonstrating appropriate use. Antiembolism stockings, SCDs present. - Gastrointestinal Gastrointestinal Comment(s): Abdomen soft, nontender, nondistended. Active bowel sounds present 4 quadrants. Tolerating diet. Positive bowel movement 06/17. - Genitourinary Genitourinary Comment(s): Continues to void clear, yellow urine. Output overnight 600 mL. - Integumentary Integumentary Comment(s): Skin is warm and dry with evidence of good perfusion. Anterior chest incision well approximated and covered with dry intact dressing. Left lower extremity EVH site well approximated. Right pleural chest tube site with serous drainage , dressing applied unchanged. - Neurologic Neurologic: Present: CNII-XII intact - Musculoskeletal Musculoskeletal: Present: gait normal, strength equal bilaterally - Psychiatric Psychiatric: Present: A&O x's 3, appropriate affect, intact judgment & insight - Allied health notes Allied health notes reviewed: nursing - Labs CBC & Chem 7: 06/18/18 04:52 06/18/18 04:52 Labs: Abnormal Lab Results - Last 24 Hours (Table) 06/17/18 06/17/18 06/17/18 Range/Units 07:28 16:52 21:03 WBC (3.8-10.6) k/uL RBC (3.80-5.40) m/uL Hgb (11.4-16.0) gm/dL Hct (34.0-46.0) % Neutrophils # (1.3-7.7) k/uL Monocytes # (0-1.0) k/uL Sodium (137-145) mmol/L BUN (7-17) mg/dL Glucose (74-99) mg/dL POC Glucose (mg/dL) 124 H 115 H 131 H (75-99) mg/dL Total Protein (6.3-8.2) g/dL Albumin (3.5-5.0) g/dL 06/18/18 06/18/18 06/18/18 Range/Units 01:41 04:52 04:52 WBC 14.4 H (3.8-10.6) k/uL RBC 3.43 L (3.80-5.40) m/uL Hgb 10.4 L (11.4-16.0) gm/dL Hct 32.0 L (34.0-46.0) % Neutrophils # 9.3 H (1.3-7.7) k/uL Monocytes # 1.6 H (0-1.0) k/uL Sodium 136 L (137-145) mmol/L BUN 25 H (7-17) mg/dL Glucose 105 H (74-99) mg/dL POC Glucose (mg/dL) 109 H (75-99) mg/dL Total Protein 5.6 L (6.3-8.2) g/dL Albumin 2.9 L (3.5-5.0) g/dL 06/18/18 Range/Units 07:14 WBC (3.8-10.6) k/uL RBC (3.80-5.40) m/uL Hgb (11.4-16.0) gm/dL Hct (34.0-46.0) % Neutrophils # (1.3-7.7) k/uL Monocytes # (0-1.0) k/uL Sodium (137-145) mmol/L BUN (7-17) mg/dL Glucose (74-99) mg/dL POC Glucose (mg/dL) 114 H (75-99) mg/dL Total Protein (6.3-8.2) g/dL Albumin (3.5-5.0) g/dL - Imaging and Cardiology Chest x-ray: image reviewed Assessment and Plan (1) Severe aortic stenosis Current Visit: Yes Status: Chronic Code(s): I35.0 - NONRHEUMATIC AORTIC ( VALVE) STENOSIS SNOMED Code(s): 59141861 (2) Hypertension Current Visit: Yes Status: Chronic Code(s): I10 - ESSENTIAL (PRIMARY) HYPERTENSION SNOMED Code(s): 63678167 (3) Hyperlipidemia Current Visit: Yes Status: Chronic Code(s): E78.5 - HYPERLIPIDEMIA, UNSPECIFIED SNOMED Code(s): 90417046 (4) Tobacco dependence in remission Current Visit: No Status: Resolved Code(s): F17.201 - NICOTINE DEPENDENCE, UNSPECIFIED, IN REMISSION SNOMED Code(s): 621756114 (5) COPD (chronic obstructive pulmonary disease) Current Visit: Yes Status: Chronic Code(s): J44.9 - CHRONIC OBSTRUCTIVE PULMONARY DISEASE, UNSPECIFIED SNOMED Code(s): 20462369 (6) Obesity Current Visit: Yes Status: Chronic Code(s): E66.9 - OBESITY, UNSPECIFIED SNOMED Code(s): 267785454 (7) CAD (coronary artery disease) Current Visit: Yes Status: Chronic Code(s): I25.10 - ATHSCL HEART DISEASE OF [place] CORONARY ARTERY W/O ANG PCTRS SNOMED Code(s): 03589668 Plan: 1. Continue aspirin, statin, Plavix, beta francis. Will increase beta francis therapy as tolerated. Increased to 50 mg BID today. 2. ROSE inhibitor discontinued secondary to increased coughing. Losartan added. 3. Will give IV Lasix today. 4. Encourage incentive spirometry use 10 times every hour while awake. 5. Bronchodilators per pulmonology. 6. Increase activity, ambulate in hallway. PT/OT/cardiac rehab following. 7. Insulin management per primary care service. 8. Pain controlled with current medication regimen. 9. GI prophylaxis with Protonix. DVT prophylaxis with subcu heparin, SCDs. 10. Will discontinue A/V epicardial pacemaker wires today. 11. Discharge planning in progress. Anticipate discharge to home with home today. Time with Patient: Greater than 30
[2018-06-18] MEDS: PANTOPRAZOLE 40 MG TABLET PO SCH (07:51)
--- NOTE | 2018-06-18 08:03 | XR ---
EXAMINATION TYPE: XR chest 2V DATE OF EXAM: 06/18/2018 COMPARISON: 06/17/2018 HISTORY: Status post cardiac surgery. Shortness of breath. TECHNIQUE: Frontal and lateral views of the chest are obtained. FINDINGS: There is redemonstration of cardiomegaly, cardiac valvular replacement, and postsurgical c hanges of the chest. Costophrenic angles are again blunted with trace pleural effusions, left greater than right. Minimal pulmonary vascular congestion remains. Exam is similar to the prior. There is ge neralized osseous demineralization. IMPRESSION: Similar exam in comparison to the prior 06/17/2018. Mild pulmonary vascular congestion a nd trace pleural effusions, left greater than right.
[2018-06-18] MEDS: IPRATROPIUM-ALBUTEROL 3 ML NEB INHALATION SCH ×2 (08:08→11:53)
[2018-06-18] MEDS: ASPIRIN 325 MG TAB PO SCH (08:24)
[2018-06-18] MEDS: CLOPIDOGREL 75 MG TAB PO SCH (08:24)
[2018-06-18] MEDS: ATORVASTATIN 40 MG TAB PO SCH (08:25)
[2018-06-18] MEDS ORDERED: METOPROLOL TARTRATE 50 MG TAB PO SCH (09:00)
--- NOTE | 2018-06-18 10:18 | P.DS ---
Providers Date of admission: 06/13/18 06:45 Expected date of discharge: 06/18/18 Attending physician: Florencio Jimenez Consults: 06/13/18 14:45 Consult Physician Routine Consulting Provider: Darrin Vera Consult Reason/Comments: Director Of Business Systems Consult: post cardiac surgery Do you want consulting provider notified?: Yes Consult Physician Routine Consulting Provider: Sharad Borrero Consult Reason/Comments: medical management Do you want consulting provider notified?: Yes Consult Physician Routine Consulting Provider: Krunal Bergeron Consult Reason/Comments: Roll Grinder Consult: post cardiac surgery Do you want consulting provider notified?: Yes Primary care physician: Dimas King - Discharge Diagnosis(es) (1) Severe aortic stenosis Current Visit: Yes Status: Chronic (2) Hypertension Current Visit: Yes Status: Chronic (3) Hyperlipidemia Current Visit: Yes Status: Chronic (4) Tobacco dependence in remission Current Visit: No Status: Resolved (5) COPD (chronic obstructive pulmonary disease) Current Visit: Yes Status: Chronic (6) Obesity Current Visit: Yes Status: Chronic (7) CAD (coronary artery disease) Current Visit: Yes Status: Chronic Hospital Course: FINAL DIAGNOSIS: 1. Severe aortic valve stenosis 2. Two-vessel coronary artery disease 3. Hypertension 4. Hyperlipidemia 5. Previous tobacco dependence 6. Mild COPD with preoperative FEV1 63% of predicted 7. Left internal carotid artery stenosis 50-79% 8. Obesity PRINCIPAL PROCEDURE: 1. Aortic valve replacement with a #23 mm Inspiris [place] bioprosthetic aortic valve 2. Coronary bypass grafting 2 with reverse saphenous vein graft off the aorta to the first obtuse marginal artery and the right coronary artery 3. Left lower extremity greater saphenous vein endoscopic harvesting 4. Clip ligation of the left atrial appendage with a #35 mm AtriClip 5. Intraoperative transesophageal echocardiogram HISTORY OF PRESENT ILLNESS: This is a 72-year-old female patient who follows with Dr. King on an outpatient basis. She has been followed for several years by Dr. Bergeron for aortic stenosis. A recent transthoracic echocardiogram demonstrated worsening of her aortic valve stenosis despite no changes in her breathing pattern, no chest pain, no orthopnea, no paroxysmal dyspnea, no dyspnea on exertion, and no peripheral edema. She was recommended to undergo heart catheterization and transesophageal echocardiogram. Her heart catheterization completed in early April 2018 demonstrated calcified coronary arteries with significant disease in the proximal left circumflex and right coronary artery. Transesophageal echocardiogram completed at the same time demonstrated normal left ventricular size and function, severely calcified tricuspid aortic valve with severe aortic stenosis, valve area of 0.8 cm, mild to moderate mitral and aortic regurgitation, and mild tricuspid regurgitation. The patient was referred to Dr. Jimenez from cardiothoracic surgery. She was recommended to undergo aortic valve replacement and coronary artery bypass grafting. The usual perioperative course was explained in detail to the patient and her family, all risks and benefits were discussed, all questions were answered, and consent was obtained to proceed with surgery. The patient obtained dental clearance prior to surgery. HOSPITAL COURSE: The patient was brought to the hospital on 06/13/2018, taken to the preoperative area, prepared in the usual fashion, and subsequently taken to the operating room where Dr. Jimenez performed aortic valve replacement with a #23 mm Inspiris [place] bioprosthetic aortic valve, coronary bypass grafting 2 with reverse saphenous vein graft off the aorta to the first obtuse marginal artery and the right coronary artery, left lower extremity greater saphenous vein endoscopic harvesting, clip ligation of the left atrial appendage with a # 35 mm AtriClip, and intraoperative transesophageal echocardiogram. Upon completion of surgery the patient was transferred to the cardiovascular intensive care unit where she was recovered, monitored hemodynamically, and where she progressed to cardiac rehabilitation phase 1. She was extubated, all lines, tubes, and drips were discontinued when appropriate, and entrance orders were placed for 3 S. cardiac stepdown unit, however no beds were available and she remained as a 3 S. overflow patient in the intensive care unit until discharge. Her oxygen was titrated down, she continued to work with physical and occupational therapy, she was tolerating oral diet, her pain was controlled , and she was ready to be discharged to home with [facility] on postoperative day #5. She received written and verbal instruction regarding her medications, activity restrictions, signs and symptoms requiring physician notification, and follow-up appointments. COMPLICATIONS: The patient experienced no postoperative complications. Patient Condition at Discharge: Stable Plan - Discharge Summary Discharge Rx Participant: No New Discharge Prescriptions: New Acetaminophen Tab [Tylenol] 650 mg PO Q4HR PRN tab PRN Reason: Fever and/ or MODERATE Pain Acetaminophen Tab [Tylenol] 325 mg PO Q4HR PRN tab PRN Reason: Fever and/ or MILD Pain Aspirin 325 mg PO DAILY #30 tab Atorvastatin [Lipitor] 40 mg PO DAILY #30 tab Clopidogrel [Plavix] 75 mg PO DAILY #30 tab Furosemide [Lasix] 20 mg PO DAILY #7 tablet Losartan [Cozaar] 50 mg PO DAILY@1200 #30 tab Metoprolol Tartrate [Lopressor] 50 mg PO BID #60 tab Pantoprazole [Protonix] 40 mg PO AC-BRKFST #30 tablet.dr Siddiqui-Docusate Sodium [Senokot-S] 2 each PO HS #14 tab traMADol HCl [Ultram] 50 mg PO Q6HR PRN #30 tab PRN Reason: SEVERE Pain Continue Cholecalciferol [Vitamin D3] 5,000 unit PO DAILY Cyanocobalamin (Vitamin B-12) [Vitamin B-12] 2,500 mcg PO DAILY Multivit-Min/Iron/Folic/Lutein [Centrum Silver Women Tablet] 1 tab PO DAILY Discontinued Pravastatin Sodium [Pravachol] 20 mg PO DAILY Benazepril [Lotensin] 10 mg PO DAILY Aspirin 81 mg PO DAILY Discharge Medication List Cholecalciferol [Vitamin D3] 5,000 unit PO DAILY 04/27/18 [History] Cyanocobalamin (Vitamin B-12) [Vitamin B-12] 2,500 mcg PO DAILY 04/27/18 [ History] Multivit-Min/Iron/Folic/Lutein [Centrum Silver Women Tablet] 1 tab PO DAILY 07/15 [History] Acetaminophen Tab [Tylenol] 325 mg PO Q4HR PRN tab 06/18/18 [Rx] Acetaminophen Tab [Tylenol] 650 mg PO Q4HR PRN tab 06/18/18 [Rx] Aspirin 325 mg PO DAILY #30 tab 06/18/18 [Rx] Atorvastatin [Lipitor] 40 mg PO DAILY #30 tab 06/18/18 [Rx] Clopidogrel [Plavix] 75 mg PO DAILY #30 tab 06/18/18 [Rx] Furosemide [Lasix] 20 mg PO DAILY #7 tablet 06/18/18 [Rx] Losartan [Cozaar] 50 mg PO DAILY@1200 #30 tab 06/18/18 [Rx] Metoprolol Tartrate [Lopressor] 50 mg PO BID #60 tab 06/18/18 [Rx] Pantoprazole [Protonix] 40 mg PO AC-BRKFST #30 tablet. 06/18/18 [Rx] Sennosides-Docusate Sodium [Senokot-S] 2 each PO HS #14 tab 06/18/18 [Rx] traMADol HCl [Ultram] 50 mg PO Q6HR PRN #30 tab 06/18/18 [Rx] Follow up Appointment(s)/Referral(s): Meenakshi Clancy NPC [Nurse Practitioner] - 06/22/18 2:00 pm Krunal Bergeron MD [STAFF PHYSICIAN] - 07/03/18 3:45 pm Darrin Vera DO [Doctor of Osteopathic Medicine] - 07/09/18 1:00 pm [facility], [NON-STAFF] - 1 Week Dimas King MD [STAFF PHYSICIAN] - 07/02/18 12:00 pm Florencio Jimenez MD [STAFF PHYSICIAN] - 4 Weeks (will call patient with appointment time once surgeon's availability is known) Ambulatory/Diagnostic Orders: Complete Blood Count w/diff [LAB.AMB] Time Frame: 3 Days, Location: None Selected Comprehensive Metabolic Panel [LAB.AMB] Time Frame: 3 Days, Location: None Selected Activity/Diet/Wound Care/Special Instructions: DISCHARGE INSTRUCTIONS: 1. No driving for 4 weeks, or until physician gives their ok. 2. The patient should sleep in their own bed, no medical bed needed. 3. Stairs are not an issue. If the bedroom is upstairs, it is advised that the patient go up at night and down in the morning for the first week. Go slowly, using handrail and take 1 step at a time. 4. AMBAR hose are to be worn for 30 days or until physician discontinues. 5. Heart hugger is to be worn 100% of the time until physician discontinues.( except when showering) 6. No lifting, pushing, or pulling more than 10 pounds for 12 weeks. The physician will advise of any restriction changes. 7. The patient is expected to continue the prescribed walking program. 8. Continue pain control per as needed orders. 9. Continue with incentive spirometry and splinting/heart hugger until otherwise directed by the physician. 10. Must shower daily using liquid antibacterial soap and a separate white washcloth for each individual incision. 11. Routine sternal incision care. No powders, lotions, ointments on incisions. 12. Please call surgeon/STILL OPERATOR HELPER for temp greater than 101 F or purulent drainage from incisions. 13. Narcotic medications were discussed with the patient, including the potential for misuse, addiction, and abuse. Opiod Start Talking form was reviewed with the patient. 14. All prescriptions given by surgeon for 30 days. Refills need to be filled through salary and wage administrator/primary care physician. 15. A Red armband has been placed on the patient. It should be worn for 30 days post surgery and will be removed by the cardiac surgeons. If an ER visit is necessary, please make sure the number on the Red armband is called. HOME HEALTH SERVICES TO PROVIDE: RN SKILLED HOME CARE SERVICES FOR POST-OP SURGICAL PATIENTS WITH THE FOLLOWING: Coronary Artery Bypass Surgery (CABG), Mitral Valve Replacement/ Repair ( MVR), Aortic Valve Replacement/Repair (AVR) RN TO CONTINUE EDUCATION FROM ``ROAD TO A HEALTH HEART PATIENT EDUCATION MANUAL (GIVEN TO PATIENT IN THE HOSPITAL) MEDICATION RECONCILIATION WITH EDUCATION NEEDED ON FIRST HOME VISIT EMPHASIZE IMPORTANCE OF WEARING BREAST SUPPORT/HEART HUGGER ENCOURAGE USE OF INCENTIVE SPIROMETER 10 X EVERY HOUR WHILE AWAKE ENCOURAGE UTILIZATION OF LOWER EXTREMITY COMPRESSION STOCKINGS/AMBAR HOSE and ELEVATE LEGS ABOVE LEVEL OF HEART WHILE AT REST. ENCOURAGE AMBULATION 3-5x/day INCREASING TOLERATES, WHILE AVOID EXTREMES IN TEMPERATURE FREQUENCY: RN TO OPEN THE PATIENT WITHIN 24 HOURS OF DISCHARGE FROM THE HOSPITAL WITH TELEHEALTH INSTALLED AT [facility] [place], RN TO VISIT 2-3 X A WEEK FOR 4 WEEKS ESTABLISHED BY PATIENT NEEDS. LABORATORY: CBC, CMP TO BE DRAWN ON THE THIRD DAY HOME, 06/21/18, (RAN STAT ) FAX RESULTS TO [phone]. TELEHEALTH PARAMETERS: WEIGHT: NOTIFY MD OF WEIGHT GAIN OF 2 LBS IN 24 HOURS OR 5 LBS IN ONE WEEK HR: NOTIFY MD OF HR <55 BPM OR HR>100 BPM BP: NOTIFY MD IF BP <90/55 OR BP>140/100 O2 SAT: NOTIFY MD IF PO2<93% ON ROOM AIR SEND TELEHEALTH REPORT TO TOP PRECIPITATOR OPERATOR AND CARDIOVASCULAR SURGEON THE FIRST WEEK OF CARE AND THEN BI-WEEKLY. PLEASE ADDITIONALLY COMMUNICATE ANY ABNORMALS AND NEW FINDINGS TO THE SURGEONS OFFICE. Discharge Disposition: HOME WITH HOME HEALTH SERVICES
--- NOTE | 2018-06-18 11:12 | P.PN ---
Subjective Progress Note Date: 06/18/18 Principal diagnosis: Severe aortic stenosis, status post aortic valve replacement, coronary artery disease, status post two-vessel bypass, postop day 5 Status post two-vessel bypass and aortic valve replacement Progress note dated 06/14/2018 72-year-old female, postop day #1 status post aortic valve replacement for severe aortic stenosis and two-vessel bypass grafting. The patient surgery was done by Dr. Jimenez. The patient was extubated just outside the 6 hour window. Currently, she is on a couple liters of oxygen. She's doing relatively well. Chest x-ray shows some mild fluid overload and cardiothoracic we'll probably give her some additional Lasix. The surgeon give her 20 mg of Lasix last night. She has a history of hyperlipidemia hypertension and DJD. She also has a history of obesity. She's doing relatively well. Her catheterization revealed a 70% proximal circumflex lesion and 95% proximal RCA lesion. She's awake and alert. She sitting up in a chair. I did tell her to work hard on incentive spirometry. White count is 19. Hemoglobin 10.8, hematocrit 32.3 and platelet count was normal at 140,000. Sodium 136 potassium 4.4 chloride 104 CO2 25 BUN 13 and creatinine was 0.58. Progress note dated 06/15/2018 72-year-old female, postop day #2, status post aortic valve replacement for severe aortic stenosis and two-vessel bypass grafting. The patient is doing well. She was extubated within the 6 hour window. Currently, she is on O2 2 L by nasal cannula and lactated Ringer's IV at 20 mL an hour as well as an insulin drip at 3 units an hour. She's feeling about 750 mL on her incentive spirometer is sitting up in the chair. He looks reasonably well. She is having pain at the surgical site but short of that, she has no other major complaints. Chest x-rays consistent with small bilateral pleural effusions postoperative changes and some very minimal basilar atelectasis. Progress note dated 06/16/2018 72-year-old female, postop day #3, status post aortic valve replacement for severe aortic stenosis and two-vessel bypass grafting. The patient was doing well. She was extubated within the 6 hour window. Currently, the patient is not receiving any supplemental oxygen. Currently, the patient is not receiving any IV fluids. Chest x-ray shows some bibasilar atelectasis. She's doing okay on of her incentive spirometer. She is doing deep breathing coughing and clearing of secretions. Her chest x-ray has been evaluated. Her labs have been evaluated. I don't think cardiothoracic has seen her as yet today. Progress note dated 06/17/2018 72-year-old female postop day #4, status post aortic valve replacement for severe aortic stenosis and two-vessel bypass grafting for CAD. Currently, the patient's doing well. The patient's on no supplemental oxygen at this time. In addition, she is not receiving any supplemental IV fluids. The patient is ready for a 2 view chest x-ray. The patient denies any chest pain difficulty breathing coughing wheezing phlegm production or any other complaints for that matter. She's not doing as well as I expect on the incentive spirometer but I have asked her to continue to work with it. In addition, I asked her to decrease breathing cough and clear secretions. On 06/18/2018 patient seen in follow-up in the intensive care unit. Alert, in no acute distress, room air pulse ox is 95%, she is hemodynamically stable, afebrile. Lung sounds are diminished at the bases. Patient has been ambulating , tolerating activity well. Her chest x-ray has been reviewed, shows mild pulmonary vascular congestion, and trace pleural effusions left greater than right. Patient has been given a dose of IV Lasix per CT surgery. Diuresing. She denies any worsening shortness of breath, her pain is reasonably controlled , she is working on her incentive spirometry. Today's labs been reviewed, WBCs 14.4, hemoglobin is 10.4, sodium is 136, potassium is 4.9, BUN is 25, creatinine 0.76. Objective - Vital Signs Vital signs: Vital Signs Temp 97.6 F 06/18/18 06:09 Pulse 76 06/18/18 08:25 Resp 17 06/17/18 08:00 BP 135/78 06/18/18 06:09 Pulse Ox 95 06/18/18 06:09 Intake & Output 06/17/18 06/18/18 06/18/18 18:59 06:59 18:59 Intake Total 400 540 Output Total 800 600 Balance -800 -200 540 Weight 105.5 kg Intake: Oral 400 540 Output: Urine 800 600 Other: Voiding Method Toilet Toilet Toilet # Voids 3 0 # Bowel Movements 2 ABP, PAP, CO, CI - Last Documented Arterial Blood Pressure 121/60 Pulmonary Artery Pressure 32/16 Cardiac Output 5 Cardiac Index 2.3 - Exam No acute distress, oriented 3. Not requiring any supplemental oxygen. She is sitting up in the chair. HEENT examination is grossly unremarkable. Mucous membranes are moist. No oral lesions. Neck supple. Full range of motion. No adenopathy thyromegaly or neck vein distention. Cardiovascular examination reveals regular rhythm rate. S1-S2 normal. No S3 or S4. No discernible murmur noted. Heart sounds are distant. Lungs reveal mostly clear breath sounds, diminished at the bases. Breath sounds are equal bilaterally. There are no wheezes. Abdomen soft bowel sounds are heard. No masses or tenderness. Extremities are intact. No cyanosis clubbing or edema. Skin is without rash or lesion. Neurologic examination is brief but nonfocal. - Labs CBC & Chem 7: 06/18/18 04:52 06/18/18 04:52 Labs: Abnormal Lab Results - Last 24 Hours (Table) 06/17/18 06/17/18 06/18/18 Range/Units 16:52 21:03 01:41 WBC (3.8-10.6) k/uL RBC (3.80-5.40) m/uL Hgb (11.4-16.0) gm/dL Hct (34.0-46.0) % Neutrophils # (1.3-7.7) k/uL Monocytes # (0-1.0) k/uL Sodium (137-145) mmol/L BUN (7-17) mg/dL Glucose (74-99) mg/dL POC Glucose (mg/dL) 115 H 131 H 109 H (75-99) mg/dL Total Protein (6.3-8.2) g/dL Albumin (3.5-5.0) g/dL 06/18/18 06/18/18 06/18/18 Range/Units 04:52 04:52 07:14 WBC 14.4 H (3.8-10.6) k/uL RBC 3.43 L (3.80-5.40) m/uL Hgb 10.4 L (11.4-16.0) gm/dL Hct 32.0 L (34.0-46.0) % Neutrophils # 9.3 H (1.3-7.7) k/uL Monocytes # 1.6 H (0-1.0) k/uL Sodium 136 L (137-145) mmol/L BUN 25 H (7-17) mg/dL Glucose 105 H (74-99) mg/dL POC Glucose (mg/dL) 114 H (75-99) mg/dL Total Protein 5.6 L (6.3-8.2) g/dL Albumin 2.9 L (3.5-5.0) g/dL Assessment and Plan Plan: Postop day #5, status post three-vessel bypass grafting and aortic valve replacement for severe aortic stenosis Routine postoperative ventilator management Obesity History of hypertension History of hyperlipidemia Vitamin D deficiency Previous history of tobacco use Postoperative bibasilar atelectasis. Plan: Patient did receive a dose of IV Lasix per CT surgery. Patient is going home on oral Lasix. Overall she is doing well, no acute events overnight. Tolerating ambulation. Pain is reasonably controlled. She is on room air. Denies any worsening shortness of breath. From pulmonary/critical care standpoint patient is stable for discharge home today. Follow-up with Dr. Vera in the office within one week. I performed a history & physical examination of the patient and discussed their management with my nurse practitioner, Princess Luna. I reviewed the nurse practitioner's note and agree with the documented findings and plan of care. Lung sounds are clear diminished at the bases. The findings and the impression was discussed with the patient. I attest to the documentation by the nurse practitioner. Time with Patient: Greater than 30
[2018-06-18] MEDS ORDERED: LOSARTAN 50 MG TAB PO SCH (12:00)
[2018-06-18 12:04] VITALS: PULSE 80
== END 2018-06-18 13:33 | disposition home health service (06) | DRG 220 ==
LOC: 2ORMAIN 06:45 → 2SICU 14:12
PROVIDERS: ADMIT Thoracic Surgery (Cardiothoracic Vascular Surgery); ATTEND Thoracic Surgery (Cardiothoracic Vascular Surgery)
PROC: 02L70CK Occlusion of Left Atrial Appendage with Extraluminal Device, Open Approach (ICD-10-PCS; principal; 2018-06-13 09:00)
PROC: 5A1221Z Performance of Cardiac Output, Continuous (ICD-10-PCS; principal; 2018-06-13 09:00)
PROC: 021109W Bypass Coronary Artery, Two Arteries from Aorta with Autologous Venous Tissue, Open Approach (ICD-10-PCS; principal; 2018-06-13 09:00)
PROC: 06BQ4ZZ Excision of Left Saphenous Vein, Percutaneous Endoscopic Approach (ICD-10-PCS; principal; 2018-06-13 09:00)
PROC: B246ZZ4 Ultrasonography of Right and Left Heart, Transesophageal (ICD-10-PCS; principal; 2018-06-13 09:00)
PROC: 02RF08Z Replacement of Aortic Valve with Zooplastic Tissue, Open Approach (ICD-10-PCS; principal; 2018-06-13 09:00)
DX: I08.3 Combined rheumatic disorders of mitral, aortic and tricuspid valves (principal); Z68.41 Body mass index [BMI] 40.0-44.9, adult; E87.1 Hypo-osmolality and hyponatremia; J90 Pleural effusion, not elsewhere classified; J98.11 Atelectasis; I25.10 Atherosclerotic heart disease of native coronary artery without angina pectoris; Z88.5 Allergy status to narcotic agent; Z88.2 Allergy status to sulfonamides; I10 Essential (primary) hypertension; E78.5 Hyperlipidemia, unspecified; M19.90 Unspecified osteoarthritis, unspecified site; Z96.641 Presence of right artificial hip joint; Z90.49 Acquired absence of other specified parts of digestive tract; E55.9 Vitamin D deficiency, unspecified; E66.9 Obesity, unspecified; E87.70 Fluid overload, unspecified; F17.201 Nicotine dependence, unspecified, in remission; I49.3 Ventricular premature depolarization; I65.22 Occlusion and stenosis of left carotid artery; J44.9 Chronic obstructive pulmonary disease, unspecified; K59.00 Constipation, unspecified; Z79.82 Long term (current) use of aspirin; Z80.6 Family history of leukemia
CPT/HCPCS: 71045; 71046; 80048; 80053; 82330; 82805; 83036; 83735; 84132; 85025; 85520; 85610; 85730; 86850; 86891; 86900; 86901; 86920; 88305; 88311; 94002; 94640

== ENCOUNTER → 2018-07-17 | Outpatient (CLI) | payer MEDICARE, BC ==
--- NOTE | 2018-07-17 23:05 | US ---
EXAMINATION TYPE: US chest DATE OF EXAM: 07/17/2018 COMPARISON: Correlation radiographs 07/09/2018 CLINICAL HISTORY: 72-year-old female R06.09 Shortness of breath. TECHNIQUE: Targeted ultrasound of the posterior lower right and left hemithoraces. FINDINGS: EXAM MEASUREMENTS: Right Pleural Effusion pocket size: 2.4 cm Right skin surface to fluid distance: 4.1 cm Left Pleural Effusion pocket size: 2.6 cm Left skin surface to fluid distance: 2.9 cm Right side marked for possible thoracentesis outside the dept. Left side marked for possible thoracentesis outside the dept. Pulmonologists are able to review the images in the patient?s EMR. IMPRESSIONS: Small bilateral pleural effusions. The natural developer indicates that markings were performed. However, n ote that this is not an adequate amount of fluid for safe needle placement.
== END ==
LOC: RADUSWWP 16:14
PROVIDERS: ATTEND Internal Medicine Critical Care Medicine
DX: J90 Pleural effusion, not elsewhere classified (principal); Z88.5 Allergy status to narcotic agent; Z88.2 Allergy status to sulfonamides
CPT/HCPCS: 76604

== ENCOUNTER → 2018-07-24 | Outpatient (CLI) | payer MEDICARE, BC ==
[2018-07-24 17:00] LABS: Albumin/Globulin Ratio 1.9 (1.20-2.10); Anion Gap 8.5 mmol/L (4.00-12.00); Calcium 9.8 mg/dL (8.7-10.3); Carbon Dioxide 30.5 mmol/L (21.6-31.8); Globulin 2.1 g/dL (2.1-3.7); LDL Cholesterol,Calculated 74.2 mg/dL (0.0-131.0); Potassium 4.3 mmol/L (3.5-5.5); Total Bilirubin 0.6 mg/dL (0.2-1.2); Total Protein 6.1 g/dL (6.2-8.2); VLDL Calculation 25.8 mg/dL (5.00-40.00)
== END | disposition home or self-care (01) ==
LOC: LABWHC1 08:22
PROVIDERS: ATTEND Internal Medicine Interventional Cardiology
DX: E78.2 Mixed hyperlipidemia (principal)
CPT/HCPCS: 36415; 80053; 80061

== ENCOUNTER → 2018-12-04 | Outpatient (CLI) | payer MEDICARE, BC ==
[2018-12-04 18:44] LABS: Albumin 4.1 g/dL (3.80-4.90); Albumin/Globulin Ratio 1.71 (1.60-3.17); Anion Gap 7.1 mmol/L (4.00-12.00); Calcium 9.9 mg/dL (8.7-10.3); Carbon Dioxide 29.9 mmol/L (21.6-31.8); Globulin 2.4 g/dL (1.6-3.3); LDL Cholesterol,Calculated 94.8 mg/dL (0.0-131.0); Total Bilirubin 0.5 mg/dL (0.3-1.2); Total Protein 6.5 g/dL (6.2-8.2); VLDL Calculation 33.2 mg/dL (5.00-40.00)
== END ==
LOC: LABWHC1 11:31
PROVIDERS: ATTEND Internal Medicine Interventional Cardiology
DX: E78.2 Mixed hyperlipidemia (principal)
CPT/HCPCS: 36415; 80053; 80061

== ENCOUNTER → 2019-02-19 | Outpatient (CLI) | payer MEDICARE, BC ==
[2019-02-19 16:35] LABS: LDL Cholesterol,Calculated 72.4 mg/dL (0.0-131.0); VLDL Calculation 34.6 mg/dL (5.00-40.00)
== END | disposition home or self-care (01) ==
LOC: LABWHC1 10:19
PROVIDERS: ATTEND Internal Medicine Interventional Cardiology
DX: E78.2 Mixed hyperlipidemia (principal)
CPT/HCPCS: 36415; 80061; 84450; 84460

== ENCOUNTER → 2019-09-24 | Outpatient (CLI) | payer MEDICARE, BC ==
--- NOTE | 2019-09-25 11:00 | MM ---
Reason for exam: screening (asymptomatic). Last mammogram was performed 1 year and 6 months ago. History: Patient is postmenopausal. Physical Findings: A clinical breast exam by your physician is recommended on an annual basis and results should be correlated with mammographic findings. MG 3D Screening Mammo W/Cad Bilateral CC and MLO view(s) were taken. Prior study comparison: March 28, 2018, bilateral MG 3d screening mammo w/cad. July 22, 2016, bilateral MG 3d screening mammo w/cad. There are scattered fibroglandular densities. There is a stable 2mm group of left upper outer quadrant middle depth calcifications back to 2014. Other benign bilateral calcifications seen. No suspicious abnormality. No significant changes when compared with prior studies. ASSESSMENT: Benign, BI-RAD 2 RECOMMENDATION: Routine screening mammogram of both breasts in 1 year.
== END ==
LOC: RADMAMWWP 13:12
PROVIDERS: ATTEND Family Medicine
DX: Z12.31 Encounter for screening mammogram for malignant neoplasm of breast (principal)
CPT/HCPCS: 77063; 77067

== ENCOUNTER → 2019-10-01 | Outpatient (CLI) | payer MEDICARE, BC ==
[2019-10-01 11:58] LABS: Basophils # (A) 0.1 k/uL (0-0.2); Basophils % (A) 1 %; Eosinophils # (A) 0.3 k/uL (0-0.7); Eosinophils % (A) 3 %; HCT 46.2 % (34.0-46.0); HGB 14.9 gm/dL (11.4-16.0); Lymphocytes # (A) 2.5 k/uL (1.0-4.8); Lymphocytes % (A) 23 %; MCH 29.4 pg (25.0-35.0); MCHC 32.3 g/dL (31.0-37.0); MCV 91.1 fL (80.0-100.0); Mean Platelet Volume 8.7; Monocytes # (A) 0.6 k/uL (0-1.0); Monocytes % (A) 6 %; Neutrophils # (A) 7.1 k/uL (1.3-7.7); Neutrophils % (A) 66 %; Platelet Count 299 k/uL (150-450); RBC 5.07 m/uL (3.80-5.40); RDW 12.6 % (11.5-15.5); WBC 10.8 k/uL (3.8-10.6)
[2019-10-01 12:50] LABS: Appearance,Urine Clear (Clear); Bilirubin,Urine Negative (Negative); Blood,Urine Negative (Negative); Color,Urine Light Yellow; Glucose,Urine (UA) Negative (Negative); Ketones,Urine Negative (Negative); Leukocyte Esterase,Urine Negative (Negative); Nitrite,Urine Negative (Negative); Protein,Urine Negative (Negative); Specific Gravity,Urine 1.003 (1.001-1.035); Urobilinogen,Urine <2.0 mg/dL (<2.0)
[2019-10-01 13:57] LABS: Erythrocyte Sedimentation Rate 32 mm/hr (0-20)
[2019-10-01 18:41] LABS: % Iron Saturation 29.89 (12.00-45.00); ALT 18 U/L (8-44); AST 23 U/L (13-35); Albumin/Globulin Ratio 1.78 (1.60-3.17); Alkaline Phosphatase 67 U/L (41-126); BUN/Creat Ratio 18.75 Ratio (12.00-20.00); Calcium 9.8 mg/dL (8.7-10.3); Carbon Dioxide 30.1 mmol/L (21.6-31.8); Chloride 101 mmol/L (96-109); Chol/HDL Ratio 3.66; Cholesterol 161 mg/dL (0-200); Creatine Kinase 70 U/L (26-186); Globulin 2.3 g/dL (1.6-3.3); Glucose 114 mg/dL (70-110); Iron 107 ug/dL (50-170); LDL Cholesterol,Calculated 82.6 mg/dL (0.0-131.0); Non-African American GFR(CKD) 71.6 (60.0-200.0); Potassium 5.1 mmol/L (3.5-5.5); Sodium 140 mmol/L (135-145); Total Bilirubin 0.5 mg/dL (0.2-1.2); Total Iron Binding Capacity 358 ug/dL (228-460); Total Protein 6.4 g/dL (6.2-8.2)
[2019-10-01 19:21] LABS: Folate, Serum >24.0 ng/mL
== END | disposition home or self-care (01) ==
LOC: LABWHC1 10:54
PROVIDERS: ATTEND Internal Medicine Interventional Cardiology
DX: E78.2 Mixed hyperlipidemia (principal); I10 Essential (primary) hypertension; E78.00 Pure hypercholesterolemia, unspecified; R53.82 Chronic fatigue, unspecified
CPT/HCPCS: 36415; 80053; 80061; 81003; 82306; 82550; 82607; 82746; 83540; 83550; 84439; 84443; 85025; 85652

== ENCOUNTER → 2021-02-16 | Outpatient (CLI) | payer MEDICARE, BC ==
[2021-02-17 00:44] LABS: African American GFR (CKD) 82.4 (60.0-200.0); Albumin 4.2 g/dL (3.80-4.90); Albumin/Globulin Ratio 1.62 (1.60-3.17); Anion Gap 9.5 mmol/L (4.00-12.00); BUN/Creat Ratio 18.75 Ratio (12.00-20.00); Calcium 9.5 mg/dL (8.7-10.3); Carbon Dioxide 24.5 mmol/L (21.6-31.8); Chol/HDL Ratio 3.59; Globulin 2.6 g/dL (1.6-3.3); Non-African American GFR(CKD) 71.1 (60.0-200.0); Potassium 4.5 mmol/L (3.5-5.5); Total Bilirubin 0.6 mg/dL (0.2-1.2); Total Protein 6.8 g/dL (6.2-8.2)
[2021-02-17 01:20] LABS: Folate, Serum 23.7 ng/mL
== END | disposition home or self-care (01) ==
LOC: LABWHC1 11:28
PROVIDERS: ATTEND Nurse Practitioner Adult Health
DX: Z00.00 Encounter for general adult medical examination without abnormal findings (principal); E78.2 Mixed hyperlipidemia; I10 Essential (primary) hypertension; E78.00 Pure hypercholesterolemia, unspecified; R53.81 Other malaise
CPT/HCPCS: 36415; 80053; 80061; 82550; 82607; 82746; 84443